=== PATIENT | female | born 1950 | race Caucasian/White ===

== ENCOUNTER 2016-09-04 11:33 | Inpatient (IN) ==
[2016-09-04] MEDS ORDERED: MORPHINE 2 MG/1 ML SYRINGE IV STA (11:43)
[2016-09-04] MEDS ORDERED: ONDANSETRON 4 MG/2 ML VIAL IV STA (11:43)
--- NOTE | 2016-09-04 11:45 | Emergency Department Note ---
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 States she was walking to the laundry mat and tripped landing on her left hand. Denies hitting her head or LOC. Pain, swelling, deformity noted to the left hand. Also, complaining of abrasions to left knee. Patient ambulatory after accident. Past medical history significant for COPD and congestive heart failure. Onset (ago): hour(s) (1) Severity: moderate Quality: other (throbbing ) Allergies/Adverse Reactions: Allergies Allergy/AdvReac Type Severity Reaction Status Date / Time aspirin AdvReac Severe Nausea Verified 08/01/16 16:13 Home Medications: Home Medications Medication Instructions Recorded Confirmed Type Gabapentin Cap/Tab [Neurontin 600 mg PO BEDTIME 10/20/14 06/24/16 History Cap/Tab] Ipratropium/Albuterol Inhaler 1 puff INH QOTHER DAY PRN 10/20/14 06/24/16 History [Combivent Respimat Inhaler] Albuterol Sulfate [Ventolin HFA] 2 puff INH Q4H PRN 12/21/15 06/24/16 History Apixaban [Eliquis] 5 mg PO BID 12/21/15 06/24/16 History Isosorbide Mononitrate [Imdur] 15 mg PO DAILY 12/21/15 06/24/16 History Metoprolol Tartrate 25 mg PO DAILY 12/21/15 06/24/16 History Spironolactone 100 mg PO DAILY 12/21/15 06/24/16 History Torsemide Tab [Demadex Tab] 40 mg PO DAILY 12/21/15 06/24/16 History dilTIAZem HCl [Diltiazem ER] 360 mg PO DAILY 12/21/15 06/24/16 History Cyclobenzaprine HCl 5 mg PO BID PRN 06/24/16 06/24/16 History Dicyclomine HCl 10 mg PO TID PRN 06/24/16 06/24/16 History Escitalopram [Lexapro] 10 mg PO DAILY 06/24/16 06/24/16 History Furosemide Tab [Lasix Tab] 20 mg PO BID DIURETIC #60 tablet 06/24/16 Rx Lactobacillus Acidophilus 1 each PO BID 06/24/16 06/24/16 History [Acidophilus] Mirabegron [Myrbetriq] 25 mg PO DAILY 06/24/16 06/24/16 History Pramipexole Di-HCl [Pramipexole ER] 0.75 mg PO QPM 06/24/16 06/24/16 History Review of System - Review of System 12 point system: reviewed and no additional remarkable complaints except as stated - Review of System Musculoskeletal: Present: other (left wrist pain/deformity ) Neurological: Present: other (superficial abrasions to left knee and left elbow) Medical,Surgical,& Family Hx - Medical History Cardio: History of: CHF No history of: Hypertension Neurology: History of: Peripheral Neuropathy Genitourinary: History of: Kidney Stones Hematology: No history of: Blood Transfusion Reaction Other: No history of: Anesthesia Reactions - Surgical History Cardiac Surgeries: Patient Denies: Cardiac Catheterization Abdominal Surgeries: Surgical HX of: Cholecystectomy, EGD, Hernia Repair Reproductive Surgeries: Surgical HX of;: Hysterectomy Orthopedic Surgeries: Surgical HX of;: Total Knee Replacement (bilateral) - Social History Smoking Status: Never smoker Exam Vital Signs: Vital Signs Temperature 98.2 F 09/04/16 11:34 Pulse Rate 95 H 09/04/16 11:34 Respiratory Rate 20 09/04/16 11:34 Blood Pressure 120/60 09/04/16 11:34 O2 Sat by Pulse Oximetry 95 09/04/16 11:34 - General General appearance: alert, in no apparent distress - ENT ENT exam: Present: normal exam, normal oropharynx, mucous membranes moist - Chest Chest inspection: Present: normal inspection - Respiratory Respiratory exam: Present: normal lung sounds bilaterally - Cardiovascular Cardiovascular exam: Present: regular rate, normal rhythm, normal heart sounds - Abdominal Exam Abdominal exam: Present: soft, normal bowel sounds. Absent: tenderness - Extremities Exam Extremities exam: Present: other (Diffuse TTP to distal radius/ulna; +deformity ; radial pulse strong and equal bilaterally; capillary refill less than 3 seconds ) - Neurological Exam Neurological exam: Present: alert, oriented X3 - Psychiatric Psychiatric exam: Present: normal affect, normal mood - Skin Skin exam: Present: warm, dry, other (superficial abrasions to left knee; no active bleeding ) Course Course Narrative: Family is requesting patient be admitted to the hospital. Will call the Hospitalist. - Consultations Consultation #1: Dr. Croft Time: 14:00 (Dr. Croft will operate in the morning ) Consultation #2: Hospitalist Time: 14:45 (Will admit to the Hospitalist ) Results - Labs CBC & BMP: 09/04/16 13:47 09/04/16 13:47 Lab Results: I have reviewed the patients labs - Diagnostic Findings Procedure: Chest x-ray: image reviewed by me, report reviewed by me (pulmonary vascular congestion; mild CHF- probably chronic ), X-ray: image reviewed by me , report reviewed by me (acute displaced fracture of the radius/ulna) Disposition Clinical Impression: Distal radius fracture, Ulna distal fracture Case discussed with: patient Disposition: Still a Patient Condition: Stable
[2016-09-04] MEDS ORDERED: MORPHINE 2 MG/1 ML SYRINGE ONE (11:57)
[2016-09-04] MEDS ORDERED: ONDANSETRON 4 MG/2 ML VIAL ONE (11:57)
--- NOTE | 2016-09-04 12:37 | XRay Report ---
Left wrist, 3 views. Left hand, 3 views. Indication: Fall, injury, and pain. There are acute comminuted displaced and dorsally angulated fractures of the distal radius and ulna. The radial fracture extends to the articular surface. There is also a small ulnar styloid fracture. Degenerative changes are noted at the first and second carpal-metacarpal joints, and likely also the distal interphalangeal joints. Impression: Acute displaced fractures of the distal radius and ulna. PROCEDURE INTERPRETED AT [facility] DEPARTMENT OF RADIOLOGY Final Report Signed by: Dr. Dolores Mercado
--- NOTE | 2016-09-04 13:49 | XRay Report ---
XR chest 1V portable Indication: Preop respiratory evaluation. Chest one view: Comparison 08/01/2016. Heart size remains minimally enlarged with continued pulmonary vascular congestion centrally and hilar prominence. Increased reticular markings of the lungs noted throughout, generally stable from the prior exam. Some degree of diffuse peribronchial thickening noted as well. No focal infiltrate. Impression: Cardiomegaly and mild pulmonary vascular congestion consistent with mild CHF, likely chronic. Superimposed mild airways disease cannot be excluded. No focal pneumonia. PROCEDURE INTERPRETED AT [facility] DEPARTMENT OF RADIOLOGY Final Report Signed by: Edgardo Salazar M.D.
[2016-09-04 14:05] LABS: Basophils # 0.1 10*3/uL (0.0-0.2); Basophils % 0.5 % (0.0-0.8); Eosinophils # 0.2 10*3/uL (0.0-0.87); Eosinophils % 1.2 % (0.00-10.9); Hematocrit 36.5 VOL% (35.7-47.0); Immature Granulocytes % 0.4 %; Immature Granulocytes Absolute 0.07 #; Lymphocytes % 25.1 % (21.3-54.2); Mean Corpuscular HGB Conc 30.1 GM/DL (32-36); Mean Corpuscular Hemoglobin 23 PG (27-34); Mean Corpuscular Volume 77.2 FL (87-102); Mean Platelet Volume 11.3 FL (9.6-12.0); Monocytes # 0.9 10*3/uL (0.11-0.8); Monocytes % 5.7 % (1.7-12.7); Neutrophils # 10.8 10*3/uL (1.4-7.4); Neutrophils % 67.1 % (38.7-73.9); Platelet Count 290 T/CUMM (130-400); Red Blood Count 4.73 MC/CUMM (3.8-5.5); Red Cell Distribution Width 16.3 % (9.3-17.3); White Blood Count 16.1 T/CUMM (4-12)
[2016-09-04 14:17] LABS: INR 1.1; PT Patient Result 12.1 SECS; Partial Thromboplastin Time 29.4 SECS (0-40)
[2016-09-04 14:22] LABS: Albumin 3.8 G/DL (3.4-5.0); Bilirubin,Total 0.5 MG/DL (0.2-1.0); Calcium 9.1 MG/DL (8.5-10.1); Osmolality,Calculated 279.4 MOS/KG (273-304); Potassium 4.2 MMOL/L (3.5-5.1); Total Protein 7.7 G/DL (6.4-8.3)
[2016-09-04] MEDS ORDERED: DIPH/TET/ACEL PERT BOOSTER VACCINE 0.5 ML VIAL IM ONE ×2 (14:36→19:30)
--- NOTE | 2016-09-04 15:16 | EKG Report ---
Stationary ECG Study [facility] Test Date: 09/04/2016 1:36:06 PM Pat Name: JADA BECKMAN Department: Room: Gender: F Clinical Outcomes Manager: : 1950 Requested by: Rosa Sorto Order Number: [id number] Reading MD: DELIO VALENCIA Intervals Ora Rate: 72 P: 999 AR: 0 QRS: -69 QRSD: 93 T: -14 QT: 399 QTc: 424 Interpretive Statements ATRIAL FIBRILLATION LOW QRS VOLTAGE IN PRECORDIAL LEADS POSSIBLE ANTERIOR MYOCARDIAL INFARCTION, PROBABLY OLD Electronically Signed On 09-05-16 18:58:20 CDT by DELIO VALENCIA [email or web address]
[2016-09-04] MEDS ORDERED: DOCUSATE SODIUM 100 MG CAPSULE PO PRN (15:29)
[2016-09-04] MEDS ORDERED: ZALEPLON 5 MG CAPSULE PO PRN (15:29)
[2016-09-04] MEDS ORDERED: ONDANSETRON 4 MG/2 ML VIAL IV PRN (15:29)
[2016-09-04] MEDS ORDERED: BISACODYL 5 MG TABLET PO PRN (15:29)
[2016-09-04] MEDS ORDERED: ALBUTEROL/IPRATROPIUM 3 ML NEB RESP TX PRN (15:33)
[2016-09-04] MEDS ORDERED: MORPHINE 2 MG/1 ML SYRINGE IV PRN (15:34)
--- NOTE | 2016-09-04 15:41 | Hospitalist History & Physical ---
Assessment and Plan (1) Distal radius fracture Status: Acute Assessment and plan: Non-syncopal fall with left arm fracture Current Visit: Yes Qualifiers: Encounter type: initial encounter (2) Lymphoma Status: Chronic Assessment and plan: Treated several years ago stable CT scan June 2016. Cell type is indeterminate at this time. Current Visit: No (3) Morbid obesity Status: Chronic Assessment and plan: Patient has chronic shortness of breath and poor exercise tolerance. She seems to be describing a positive sleep study in the past but no active treatment for obstructive sleep apnea. She has had chronic atrial fibrillation with echocardiogram 18 months ago showing preserved LV systolic performance and normal right ventricular systolic pressure. Current Visit: No History of Present Illness History of present illness: Ms. Blair is a 66 year old female 3 year history of atrial fibrillation on rate control using diltiazem only on her previous medication list. She had been unsuccessfully tried on Coumadin and apparently switched to Eliquis. She states however that she has taken the Eliquis only once per day with the last dose yesterday morning. Earlier today she sustained a non-syncopal fall with fracture of her left distal radius and ulna. Patient has a history of chronic shortness of breath with several evaluations. Apparently nearly a decade ago she was evaluated for possible sleep apnea it sounds as though she was positive for this but did not undergo any treatment. She describes herself as being a lifelong non-smoker who has very poor exercise tolerance. An echocardiogram done in 2014 here demonstrated excellent LV function and no increase in pulmonary artery pressures. She does have a history of lymphoma treated approximately 3-[address] scan done in June of this year shows residual adenopathy but no evidence of intrinsic lung disease. Apparently last week the patient had a follow-up pulmonary function test and was told that she had "COPD". She has no active pulmonary complaints at this time. She is seeing no bleeding. She is being admitted to the medical service with anticipation of surgical repair of her left wrist September 05. Home Medications Medication Instructions Recorded Confirmed Type Gabapentin Cap/Tab [Neurontin 600 mg PO BEDTIME 10/20/14 06/24/16 History Cap/Tab] Ipratropium/Albuterol Inhaler 1 puff INH QOTHER DAY PRN 10/20/14 06/24/16 History [Combivent Respimat Inhaler] Albuterol Sulfate [Ventolin HFA] 2 puff INH Q4H PRN 12/21/15 06/24/16 History Apixaban [Eliquis] 5 mg PO BID 12/21/15 06/24/16 History Isosorbide Mononitrate [Imdur] 15 mg PO DAILY 12/21/15 06/24/16 History Metoprolol Tartrate 25 mg PO DAILY 12/21/15 06/24/16 History Spironolactone 100 mg PO DAILY 12/21/15 06/24/16 History Torsemide Tab [Demadex Tab] 40 mg PO DAILY 12/21/15 06/24/16 History dilTIAZem HCl [Diltiazem ER] 360 mg PO DAILY 12/21/15 06/24/16 History Cyclobenzaprine HCl 5 mg PO BID PRN 06/24/16 06/24/16 History Dicyclomine HCl 10 mg PO TID PRN 06/24/16 06/24/16 History Escitalopram [Lexapro] 10 mg PO DAILY 06/24/16 06/24/16 History Furosemide Tab [Lasix Tab] 20 mg PO BID DIURETIC #60 tablet 06/24/16 Rx Lactobacillus Acidophilus 1 each PO BID 06/24/16 06/24/16 History [Acidophilus] Mirabegron [Myrbetriq] 25 mg PO DAILY 06/24/16 06/24/16 History Pramipexole Di-HCl [Pramipexole ER] 0.75 mg PO QPM 06/24/16 06/24/16 History Allergies Allergy/AdvReac Type Severity Reaction Status Date / Time aspirin AdvReac Severe Nausea Verified 08/01/16 16:13 Medical,Surgical,& Family Hx - Medical History Neurology: History of: Peripheral Neuropathy Genitourinary: History of: Kidney Stones Gastrointestinal: History of: GERD (Recurrent hiatal hernia on most recent CT scan of chest) Hematology: History of: Blood Disorders (Treated lymphoma, stable CT scan chest 2014) No history of: Blood Transfusion Reaction Other: No history of: Anesthesia Reactions - Surgical History Cardiac Surgeries: Sugical HX of: Cardiac Catheterization (Possible coronary study 8 years ago) Abdominal Surgeries: Surgical HX of: Cholecystectomy, EGD Reproductive Surgeries: Surgical HX of;: Section Orthopedic Surgeries: Surgical HX of;: Total Knee Replacement (bilateral) Additional Surgical History: Remote Birgit fundoplication - Social History Smoking Status: Never smoker Frequency of Alcohol Use: Rarely - Constitutional Constitutional: Absent: chills, fever(s) - Cardiovascular Cardiovascular: Present: dyspnea on exertion. Absent: chest pain at rest, chest pain with activity, orthopnea, palpitations - Respiratory Respiratory: Present: wheezing (She reports intermittent wheezing), other ( Likely untreated obstructive sleep apnea) - Gastrointestinal Gastrointestinal: Absent: abdominal pain, change in bowel habits, dysphagia, hematochezia, melena - Neurological Neurological: Absent: convulsions, syncope - Psychiatric Psychiatric: Present: depression Exam - Constitutional Vitals: Period Temp Pulse Resp BP Sys/Leyva Pulse Ox Last 24 Hr 98.2 F 95 20 120/60 95 General appearance: morbidly obese - Neck Neck exam: Absent: lymphadenopathy, thyromegaly - Respiratory Respiratory exam: Present: clear to auscultation bilaterally. Absent: rales, rhonchi, wheezes - Cardiovascular Cardiovascular exam: Present: irregular rhythm - GI/Abdominal GI/Abdominal exam: Present: normal bowel sounds. Absent: ascites, distended, tenderness - Extremities Exam Extremities exam: Absent: edema - Neurological Exam Neurological exam: Present: alert, oriented X3 Results - Labs CBC & BMP: 09/04/16 13:47 09/04/16 13:47 Labs: Alkaline phosphatase 179 Normal coagulation panel - Diagnostic Findings Procedure: Chest x-ray: image reviewed by me (Coarse lower lobe markings at the base bilaterally) Quality Measures - VTE Contraindication to Pharmacological VTE Prophylaxis: Already on Theraputic Agent , No Prophylaxis Needed
[2016-09-04] MEDS: PANTOPRAZOLE 40 MG TABLET PO SCH (17:16)
[2016-09-04] MEDS: DILTIAZEM 60 MG TABLET PO SCH ×2 (17:16→21:42)
--- NOTE | 2016-09-04 17:41 | Orthopedic Consult Note ---
History of Present Illness Chief complaint: Colles' fracture left wrist History of present illness: Ms. Blair is a 66 year old female admitted to the medical service with history of atrial fibrillation on Eliquis. She reported lives alone at home fell earlier today fracturing her left wrist as asked about regarding that injury she has no other injuries or complaints is mobilizing up to a chair with a splint in place on her left arm Examination confirms a decreased motion at the left wrist she had with is guarded with active motion about the digit sensibility scribe is intact The refill is brisk there is no pain with palpation about the elbow or humerus Radiographs confirm a displaced Colles' fracture left wrist Impression Colles' fracture left wrist Plan I discussed with her and family member present the diagnosis treatment examination including the benefits of closed reduction and pinning will plan on doing that in the morning pending medical clearance. Is likely from my standpoint that she could be discharged later tomorrow at her request up already put in a consult for social science teacher with respect to some home health needs that she may have Home Medications Medication Instructions Recorded Confirmed Type Gabapentin Cap/Tab [Neurontin 600 mg PO BEDTIME 10/20/14 06/24/16 History Cap/Tab] Ipratropium/Albuterol Inhaler 1 puff INH QOTHER DAY PRN 10/20/14 06/24/16 History [Combivent Respimat Inhaler] Albuterol Sulfate [Ventolin HFA] 2 puff INH Q4H PRN 12/21/15 06/24/16 History Apixaban [Eliquis] 5 mg PO BID 12/21/15 06/24/16 History Isosorbide Mononitrate [Imdur] 15 mg PO DAILY 12/21/15 06/24/16 History Metoprolol Tartrate 25 mg PO DAILY 12/21/15 06/24/16 History Spironolactone 100 mg PO DAILY 12/21/15 06/24/16 History Torsemide Tab [Demadex Tab] 40 mg PO DAILY 12/21/15 06/24/16 History dilTIAZem HCl [Diltiazem ER] 360 mg PO DAILY 12/21/15 06/24/16 History Cyclobenzaprine HCl 5 mg PO BID PRN 06/24/16 06/24/16 History Dicyclomine HCl 10 mg PO TID PRN 06/24/16 06/24/16 History Escitalopram [Lexapro] 10 mg PO DAILY 06/24/16 06/24/16 History Furosemide Tab [Lasix Tab] 20 mg PO BID DIURETIC #60 tablet 06/24/16 Rx Lactobacillus Acidophilus 1 each PO BID 06/24/16 06/24/16 History [Acidophilus] Mirabegron [Myrbetriq] 25 mg PO DAILY 06/24/16 06/24/16 History Pramipexole Di-HCl [Pramipexole ER] 0.75 mg PO QPM 06/24/16 06/24/16 History Allergies Allergy/AdvReac Type Severity Reaction Status Date / Time aspirin AdvReac Severe Nausea Verified 08/01/16 16:13 Medical,Surgical,& Family Hx - Medical History Cardio: History of: CHF No history of: Hypertension Neurology: History of: Peripheral Neuropathy Respiratory: History of: Pulmonary Embolism Genitourinary: History of: Kidney Stones Gastrointestinal: History of: GERD (Recurrent hiatal hernia on most recent CT scan of chest) Hematology: History of: Blood Disorders (Treated lymphoma, stable CT scan chest 2014) No history of: Blood Transfusion Reaction Other: History of: Miscellaneous Medical Problems (lymphoma) No history of: Anesthesia Reactions - Surgical History Cardiac Surgeries: Sugical HX of: Cardiac Catheterization (Possible coronary study 8 years ago) Abdominal Surgeries: Surgical HX of: Cholecystectomy, EGD, Hernia Repair Reproductive Surgeries: Surgical HX of;: Section, Hysterectomy Orthopedic Surgeries: Surgical HX of;: Total Knee Replacement (bilateral) - Family History Family History: Reports;: Family Cancer (mother), Family Diabetes (grandmother) - Social History Smoking Status: Never smoker Frequency of Alcohol Use: None Type of Drug Use: None Exam - Constitutional Vitals: Period Temp Pulse Resp BP Sys/Leyva Pulse Ox Last 24 Hr 98.1 F 76-82 20-20 137-186/62-82 92-96 Results - Labs CBC & BMP: 09/04/16 13:47 09/04/16 13:47
[2016-09-04] MEDS ORDERED: GABAPENTIN 600 MG TABLET PO SCH (21:00)
[2016-09-05 05:39] LABS: Basophils # 0.1 10*3/uL (0.0-0.2); Basophils % 0.4 % (0.0-0.8); Eosinophils # 0.5 10*3/uL (0.0-0.87); Eosinophils % 3.1 % (0.00-10.9); Hematocrit 33.7 VOL% (35.7-47.0); Hemoglobin 9.8 GM/DL (12.0-16.0); Immature Granulocytes % 0.4 %; Immature Granulocytes Absolute 0.07 #; Lymphocytes # 4.4 10*3/uL (1.4-4.0); Lymphocytes % 27.4 % (21.3-54.2); Mean Corpuscular HGB Conc 29.1 GM/DL (32-36); Mean Corpuscular Hemoglobin 23 PG (27-34); Mean Corpuscular Volume 80.2 FL (87-102); Mean Platelet Volume 11.9 FL (9.6-12.0); Monocytes # 1.2 10*3/uL (0.11-0.8); Monocytes % 7.6 % (1.7-12.7); Neutrophils # 9.7 10*3/uL (1.4-7.4); Neutrophils % 61.1 % (38.7-73.9); Platelet Count 227 T/CUMM (130-400); Red Cell Distribution Width 16.2 % (9.3-17.3)
[2016-09-05] MEDS ORDERED: ONDANSETRON 4 MG/2 ML VIAL ONE (07:30)
[2016-09-05] MEDS ORDERED: LACTATED RINGERS 1,000 ML IV SCH (07:30)
[2016-09-05] MEDS ORDERED: METOCLOPRAMIDE 10 MG/2 ML VIAL ONE (07:30)
[2016-09-05] MEDS ORDERED: KETOROLAC 30 MG/1 ML VIAL ONE (07:30)
[2016-09-05] MEDS ORDERED: PROPOFOL 200 MG/20 ML VIAL IV ONE (07:30)
[2016-09-05] MEDS ORDERED: PHENYLEPHRINE 1 MG/10 ML SYRINGE IV ONE (07:30)
[2016-09-05] MEDS ORDERED: LIDOCAINE 2% 5 ML VIAL ONE (07:30)
--- NOTE | 2016-09-05 08:38 | Anesthesia Post-Op ---
Anesthesia Post OP - Post Ansesthetic Evaluation Patient seen in post op: Yes Resp: within normal limits CV: within normal limits Mental: within normal limits Temp: within normal limits [id number]: within normal limits Nausea and Vomiting: within normal limits Pain: within normal limits
[2016-09-05] MEDS ORDERED: SEVOFLURANE 1 UNIT/15 MINUTE INH ONE (08:42)
[2016-09-05] MEDS ORDERED: fentaNYL 100 MCG/2 ML VIAL ONE (08:42)
[2016-09-05] MEDS ORDERED: MIDAZOLAM 2 MG/2 ML VIAL ONE (08:42)
[2016-09-05] MEDS ORDERED: ESCITALOPRAM 10 MG TABLET PO SCH (09:00)
[2016-09-05] MEDS: DILTIAZEM 60 MG TABLET PO SCH ×2 (09:00→13:53)
[2016-09-05] MEDS ORDERED: HYDROmorphone 2 MG/1 ML VIAL IV PRN (09:01)
[2016-09-05] MEDS ORDERED: ONDANSETRON 4 MG/2 ML VIAL IV PRN (09:01)
--- NOTE | 2016-09-05 10:02 | XRay Report ---
XR wrist 3V LT Indication: Fracture fixation Comparison: 04 Sep 2016 Findings: Internal fixation of distal radius fractures performed using fluoroscopic imaging. Alignment appears within normal limits on the images submitted. Fluoroscopy time 7.1 seconds. Impression: Fracture fixation as described above. PROCEDURE INTERPRETED AT [facility] DEPARTMENT OF RADIOLOGY Final Report Signed by: Dr. Luis Wilder
[2016-09-05] MEDS: PANTOPRAZOLE 40 MG TABLET PO SCH (13:53)
[2016-09-05 13:54] VITALS: BP 122/75
--- NOTE | 2016-09-05 15:11 | Discharge Summary ---
Specialty Discharge - Follow Up or Referrals Follow up with: Rj Croft Jr., MD [Physician] - 09/23/16 1:15 pm Discharge Plan - Discharge Data Disposition: Home Health Service Condition at Discharge: Stable Discharge Diet: heart healthy Activity: no lifting, other (Assistance with activities of daily living) Hygiene: other (Assistance with activities of daily living) Weight Bearing at Discharge: other (Assistance with transfers and ambulation) Contact your physician if you experience:: fever over 101, Shortness of breath - Discharge Medications New HYDROcodone/ACETAMIN 5-325 [[place] 5-325] 1 tablet PO Q4H PRN #60 tablet PRN Reason: Pain Moderate (4-7) Continue Gabapentin Cap/Tab [Neurontin Cap/Tab] 600 mg PO BEDTIME Ipratropium/Albuterol Inhaler [Combivent Respimat Inhaler] 1 puff INH QOTHER DAY PRN PRN Reason: Shortness Of Breath dilTIAZem HCl [Diltiazem 24Hr ER] 360 mg PO DAILY Isosorbide Mononitrate [Imdur] 15 mg PO DAILY Apixaban [Eliquis] 5 mg PO BID Cyclobenzaprine HCl 5 - 10 mg PO BID PRN PRN Reason: Muscle Spasm Mirabegron [Myrbetriq] 50 mg PO DAILY Pramipexole Di-HCl [Pramipexole ER] 0.75 mg PO QPM Pantoprazole Sodium [Protonix] 40 mg PO DAILY Cholestyramine (with Sugar) [Cholestyramine Powder] 378 gm PO DAILY Tiotropium [place] [Spiriva Respimat] 4 gm IH DAILY Dicyclomine HCl 10 mg PO TID PRN PRN Reason: Abdominal Pain Escitalopram [Lexapro] 10 mg PO DAILY Furosemide Tab [Lasix Tab] 20 mg PO BID DIURETIC #60 tablet Promethazine HCl 25 mg PO Q4-6H PRN PRN Reason: Nausea Montelukast Tab [Singulair Tab] 10 mg PO DAILY Discontinued cephALEXin [Cephalexin] 500 mg PO Q12H Nitrofurantoin Macrocrystals [Macrodantin] 50 mg PO BEDTIME - Follow Up or Referral Follow Up: Rj Croft Jr., MD [Physician] - 09/23/16 1:15 pm - Forms/Instructions Exam - Constitutional Vitals: Period Temp Pulse Resp BP Sys/Leyva Pulse Ox Last 24 Hr 96.5 F-98.4 F 64-98 12-20 107-186/58-92 85-100 Discharge Results Labs on day of discharge: Labs from last 24 hours 09/05/16 04:09 WBC 16.0 H RBC 4.20 Hgb 9.8 L Hct 33.7 L MCV 80.2 L MCH 23 L MCHC 29.1 L RDW 16.2 Plt Count 227 D MPV 11.9 Neut % (Auto) 61.1 Lymph % (Auto) 27.4 Desha % (Auto) 7.6 Eos % (Auto) 3.1 Baso % (Auto) 0.4 Neut # (Auto) 9.7 H Lymph # (Auto) 4.4 H Desha # (Auto) 1.2 H Eos # (Auto) 0.5 Baso # (Auto) 0.1 Immature Gran % 0.4 Nucleated RBC % 0.0 Immature Gran # 0.07 Nucleated RBCs # 0.00 DS: Provider Date of admission: 09/04/16 14:53 Primary care physician: Teresa Schafer NP Attending physician on admission: Matthew Soto MD Consults: 09/04/16 15:33 Consult to Physician [CONS] Routine Comment: Wrist fracture Consulting Provider: Frank Fay Consulting Provider Notified: Yes When should Consulting Provider be notified: Now 09/04/16 16:47 Consult to Pharmacy [CONS] Routine Reason for Pharmacy Consult: Adjust Meds Renal Funct 09/04/16 17:38 Consult to Case Mgmt/Social Srvs [CONS] Routine Reason for Case Mgmt/Social Srvs: Home Health Discharging clinician: Dilan Mejía MD
--- NOTE | 2016-09-05 16:50 | Operative Note ---
DATE OF SURGERY: 09/05/2016 PREOPERATIVE DIAGNOSIS: DISPLACED COLLES FRACTURE, LEFT WRIST. POSTOPERATIVE DIAGNOSIS: DISPLACED COLLES FRACTURE, LEFT WRIST. OPERATIVE PROCEDURE: Close reduction with percutaneous pinning, left distal radius fracture. SURGEON: Rj Croft Jr., MD ANESTHESIA: General. INDICATIONS: A 66-year-old white female injured yesterday when she fell on outstretched left arm. She sustained an isolated fracture to the left wrist for which I have recommended close reduction an d pinning. She appeared to understand and agree. OPERATIVE PROCEDURE: The patient was taking to the operating room under light general anesthetic. T he left upper extremity prepped and draped in a usual sterile manner. Fluoroscopy was used to confi rm reduction. After general manipulation a reduction was confirmed. A two 0.062 K-Wires were used to secure the reduction placed in the radial styloid across the fracture that have been cut above th e skin for later removal. They dressed sterilely and a posterior and anterior short arm splint was applied with general flexion to the wrist. She was then awaken and taken to Recover Room in a stabl e condition.
== END 2016-09-05 16:48 | disposition home health service (06) | DRG 512 ==
LOC: EDBD → EDUNIT# → N.ED 11:33 → N.EDINP 14:53 → SUATTDRO 14:53 → N.EDINP 16:31 → N.TELEN 16:37 → N.3E 09-05 11:53
PROVIDERS: ADMIT Internal Medicine Cardiovascular Disease; ATTEND Internal Medicine Infectious Disease

== ENCOUNTER 2016-09-10 10:50 | Inpatient (IN) ==
[2016-09-10] MEDS ORDERED: FUROSEMIDE 100 MG/10 ML VIAL IV STA (11:17)
[2016-09-10] MEDS ORDERED: DILTIAZEM 100 MG VIAL.ADD IV STA (11:18)
[2016-09-10] MEDS ORDERED: FUROSEMIDE 40 MG/4 ML VIAL ONE ×2 (11:22→11:23)
[2016-09-10] MEDS ORDERED: DILTIAZEM 50 MG/10 ML VIAL IV ONE (11:23)
--- NOTE | 2016-09-10 11:27 | Emergency Department Note ---
Ross Peoples Gwan, am scribing for, and in the presence of, Rj Angel MD 11:19 . Jeanne Peoples James D, MD, personally performed the services described in this documentation, ascribed by Fani Hawkins in my presence, and it is both accurate and complete . Arrival - Arrival Chief Complaint: Shortness of Breath Stated Complaint: sob Limitations: No Limitations Source: Patient, Old Records Reviewed, RN Notes Reviewed - History of Present Illness HPI Narrative: Patient is a 66 y/o female who presents to the ED with a c/o SOB with an onset 3 days ago. Patient confirmed that she is in afib and that she is taking medication to help control it. Patient has been hospitalized due to broken arm and had surgery performed Dr. Nya Garcia. Family stated that pt has had evidence of generalized edema prompting their visit to the ED. Patient confirmed that she is followed by Dr. Greer and [facility] Scha[facility]. She denies having any chest pain. Pt has a PMHx of CHF, peripheral neuropathy, PE, kidney stones and lymphoma. Consistency: constant Severity: moderate Allergies/Adverse Reactions: Allergies Allergy/AdvReac Type Severity Reaction Status Date / Time aspirin AdvReac Severe Nausea Verified 08/01/16 16:13 Home Medications: Home Medications Medication Instructions Recorded Confirmed Type Gabapentin Cap/Tab [Neurontin 600 mg PO BEDTIME 10/20/14 09/10/16 History Cap/Tab] Ipratropium/Albuterol Inhaler 1 puff INH QOTHER DAY PRN 10/20/14 09/10/16 History [Combivent Respimat Inhaler] Apixaban [Eliquis] 5 mg PO BID 12/21/15 09/10/16 History Isosorbide Mononitrate [Imdur] 15 mg PO QPM 12/21/15 09/10/16 History dilTIAZem HCl [Diltiazem 24Hr ER] 360 mg PO QPM 12/21/15 09/10/16 History Escitalopram [Lexapro] 10 mg PO QPM 06/24/16 09/10/16 History Furosemide Tab [Lasix Tab] 20 mg PO BID DIURETIC #60 tablet 06/24/16 09/10/16 Rx Mirabegron [Myrbetriq] 50 mg PO QPM 06/24/16 09/10/16 History Pramipexole Di-HCl [Pramipexole ER] 0.75 mg PO QPM 06/24/16 09/10/16 History Pantoprazole Sodium [Protonix] 40 mg PO QPM 09/05/16 09/10/16 History Promethazine HCl 25 mg PO Q4-6H PRN 09/05/16 09/10/16 History Tiotropium [place] [Spiriva 4 gm IH BID 09/05/16 09/10/16 History Respimat] Albuterol Sulfate [Ventolin HFA] 1 puff INH Q4H PRN 09/10/16 09/10/16 History Metoprolol Succinate Xl [Toprol Xl] 25 mg PO QPM 09/10/16 09/10/16 History Review of System - Review of System 12 point system: reviewed and no additional remarkable complaints except as stated - Review of System Constitutional: Absent: chills, fever Eyes: Absent: discharge Head/Ears/Nose/Throat: Absent: earache Respiratory: Present: as per HPI, other (shortness of breathe) Cardiovascular: Absent: chest pain, palpitations Gastrointestinal: Absent: abdominal pain, nausea, diarrhea Skin: Absent: rash, lesions Medical,Surgical,& Family Hx - Medical History Cardio: History of: Cardiac Dysrhythmia, CHF No history of: Hypertension Neurology: History of: Peripheral Neuropathy Respiratory: History of: Pulmonary Embolism Genitourinary: History of: Kidney Stones Gastrointestinal: History of: GERD (Recurrent hiatal hernia on most recent CT scan of chest) Hematology: No history of: Blood Transfusion Reaction Other: History of: Miscellaneous Medical Problems (lymphoma) No history of: Anesthesia Reactions - Surgical History Cardiac Surgeries: Sugical HX of: Cardiac Catheterization (Possible coronary study 8 years ago) Abdominal Surgeries: Surgical HX of: Cholecystectomy, EGD, Hernia Repair Reproductive Surgeries: Surgical HX of;: Section, Hysterectomy Orthopedic Surgeries: Surgical HX of;: Total Knee Replacement (bilateral) - Family History Family History: Reports;: Family Cancer (mother), Family Diabetes (grandmother) - Social History Smoking Status: Never smoker Exam Physical Examination: GENERAL: This is a well-nourished, well-developed white female in no apparent distress. VITAL SIGNS: HEENT: Head is normocephalic and atraumatic. Pupils are equally round and reactive to light. Extraocular movement are intact. Oropharynx is benign with moist mucous membranes. NECK: Neck is soft and supple without tenderness. There are no masses. There is no lymphadenopathy. LUNGS: Lungs are clear to auscultation bilaterally. Chest rises symmetrically. There is no chest wall tenderness. Patient has coarse breath sounds bilaterally and tachypnea. CV: Heart is irregular rate and irregular rhythm without murmurs, rubs, or gallops. ABDOMEN: Abdomen is soft, non-tender to palpation. There are no abnormal masses palpated. There is no organomegaly. Bowel sounds are present and active. SKIN: Skin is warm and dry. No rash. EXTREMITIES: Patient has full range of motion without tenderness. Patient has + 1 pitting edema to bilateral LE. NEUROLOGIC: Awake, alert, and oriented x4. Cranial nerves II through XII are grossly intact. There are no motorsensory deficits. PSYCHIATRIC: Normal affect. Normal mood. Vital Signs: Vital Signs Temperature 98.1 F 09/10/16 10:55 Pulse Rate 138 H 09/10/16 10:55 Respiratory Rate 32 H 09/10/16 10:55 Blood Pressure 133/94 09/10/16 10:55 O2 Sat by Pulse Oximetry 93 L 09/10/16 10:55 Course Course Narrative: Patient remained on BiPAP during her ED stay. The patient was given Cardizem bolus and infusion along with Lasix IV while in the emergency department. - Consultations Consultation #1: Discussed with hospitalist. Patient will be admitted to their service. Time: 12:16 Results - Labs Lab Results: I have reviewed the patients labs Labs: Laboratory Tests 09/10/16 11:24 Urine pH 5.0 Ur Specific [place] 1.017 Urine Nitrate Positive H Urine RBC 1 Urine WBC 3 - EKG EKG results: interpreted by ERMD - Impressions EKG: Atrial fib with RVR, rate 123, low voltage QRS, left anterior fascicular block. - Diagnostic Findings Procedure: Chest x-ray: image reviewed by me (Increased pulmonary markings bilaterally consistent with congestive heart failure) Disposition Clinical Impression: Atrial fibrillation with RVR, Pulmonary edema, Urinary tract infection Case discussed with: patient, patient's family Disposition: Still a Patient Condition: Guarded Time of Disposition: 12:16
[2016-09-10] MEDS ORDERED: DILTIAZEM INJ 100 MG in SODIUM CHLORIDE 0.9% 100 ML IV SCH (11:30)
[2016-09-10 11:38] LABS: Apearance,Urine Slightly Hazy (Clear); Bacteria,Urine Many /HPF (Few); Bilirubin,Urine Negative (Negative); Blood, Urine Negative (Negative); Glucose,Urine (UA) Negative (Negative); Hyaline Casts,Urine 1 /LPF (0-3); Ketones,Urine Negative (Negative); Mucus,Urine Moderate /LPF (Occasional); Nitrite,Urine Positive (Negative); Protein,Urine 30 MG/DL; RBC,Urine 1 /HPF (0-4); Squamous Epithelial Cell,Urine Occasional /HPF (0-10); Urine Color Yellow (Yellow); Urine Specific Gravity 1.017 (1.001-1.035); WBC,Urine 3 /HPF (0-6)
[2016-09-10] MEDS ORDERED: cefTRIAXone 1,000 MG in SODIUM CHLORIDE 0.9% 100 ML IV STA (11:55)
[2016-09-10 12:15] LABS: ABG Base Excess 4.1 MMOL/L (-2.5-2.5); ABG Oxygen Saturation 94.4 % (95-100); ABG PCO2 43.7 MM HG (35-48); ABG PH 7.429 (7.35-7.45); ABG PO2 73.7 MM HG (80-95); ABG TCO2 26.3 MMOL/L (23-27)
--- NOTE | 2016-09-10 12:43 | XRay Report ---
XR chest 1V portable Indication: Shortness of breath. Chest one view: When compared to 6 days ago, cardiomegaly is worse with increased pulmonary vascular congestion. No new infiltrates are identified. Obesity again demonstrated. Impression: CHF decompensation. PROCEDURE INTERPRETED AT [facility] DEPARTMENT OF RADIOLOGY Final Report Signed by: Edgardo Salazar M.D.
[2016-09-10 13:32] LABS: Basophils # 0.1 10*3/uL (0.0-0.2); Basophils % 0.3 % (0.0-0.8); Hematocrit 31.7 VOL% (35.7-47.0); Immature Granulocytes % 0.9 %; Immature Granulocytes Absolute 0.21 #; Lymphocytes # 2.6 10*3/uL (1.4-4.0); Lymphocytes % 10.4 % (21.3-54.2); Mean Corpuscular HGB Conc 31.5 GM/DL (32-36); Mean Corpuscular Hemoglobin 24 PG (27-34); Mean Corpuscular Volume 76.2 FL (87-102); Mean Platelet Volume 11.5 FL (9.6-12.0); Monocytes # 1.4 10*3/uL (0.11-0.8); Monocytes % 5.6 % (1.7-12.7); NRBC # 0.02 10*3/uL; Neutrophils # 20.4 10*3/uL (1.4-7.4); Neutrophils % 82.8 % (38.7-73.9); Platelet Count 241 T/CUMM (130-400); Red Blood Count 4.16 MC/CUMM (3.8-5.5); Red Cell Distribution Width 17.3 % (9.3-17.3); White Blood Count 24.6 T/CUMM (4-12)
[2016-09-10 13:47] LABS: INR 1.3; PT Patient Result 13.7 SECS; Partial Thromboplastin Time 33.4 SECS (0-40)
[2016-09-10 14:00] LABS: Lymphocytes 10 % (20-55); Ovalocytes Slight; Platelet Estimate Adequate; Polychromasia Slight; Segmented Neutrophils 88 % (50-85); Total Cells Counted 100
[2016-09-10 14:01] LABS: Anisocytosis 1+
--- NOTE | 2016-09-10 14:05 | Hospitalist History & Physical ---
<Shyam Power - Last Filed: 09/10/16 13:43> Assessment and Plan - Time spent with patient Time spent with patient: Greater than 30 minutes (1) Atrial fibrillation with RVR Status: Acute Assessment and plan: Received Cardizem in the ED. We will continue in the unit. Current Visit: Yes (2) Pulmonary edema Status: Acute Assessment and plan: Suspect CHF decompensation. IV Lasix. Echocardiogram. Consult cardiology. Current Visit: Yes (3) Urinary tract infection Status: Acute Assessment and plan: IV antibiotics Current Visit: Yes (4) History of COPD Status: Acute Current Visit: No (5) Ulna distal fracture Status: Acute Current Visit: No (6) Hypoxia Status: Chronic Current Visit: No History of Present Illness Chief complaint: Shortness of breath History of present illness: Ms. Blair is a 66 year old female with a past medical history significant for congestive heart failure, atrial fibrillation, PE, peripheral neuropathy, leukemia who presents to the ED with complaints of shortness of breath 3 days. The patient is accompanied by a friend who gives most of her history. Patient was recently admitted last week for a Colles' fracture to her left wrist. She had a closed reduction with percutaneous pinning of the left distal radius fracture performed by Dr. Croft last Thursday. The patient states that she has been progressively short of breath at night and when lying flat since Thursday night. Discontinued Thursday and Thursday until finally the patient decided to come to the ER. Friend states that she has evidence of generalized edema particularly in the lower extremities bilaterally. She also admits that the patient has not been compliant with her diuretics or home oxygen. She states that the patient has been confused lately. On admission, the patient is extremely short of breath and has been placed on BiPAP. Chest x-ray reveals increased cardiomegaly as compared to 1 week ago with increased pulmonary vascular congestion which is suggestive of CHF decompensation. Patient admits to shortness of breath, headache. She denies any chest pain, palpitation, near syncope, abdominal pain or change in bowel habits. On exam she is extremely edematous and her lung sounds are crackly. Preliminary lab work shows elevated white count of 24.6 pH 7.4 PCO2 43.7 PO2 73.7 HCO3 28. She is followed by Dr. Greer, director market research, and has been seen by Dr. Everett, pulmonology. Her PCP is LADY Egan. She will be admitted to the hospital medicine service for further evaluation and treatment in the CCU. Would appreciate consultation by cardiology. Patient is a full code. Case has been discussed with Dr. Funes. Home Medications Medication Instructions Recorded Confirmed Type Gabapentin Cap/Tab [Neurontin 600 mg PO BEDTIME 10/20/14 09/10/16 History Cap/Tab] Ipratropium/Albuterol Inhaler 1 puff INH QOTHER DAY PRN 10/20/14 09/10/16 History [Combivent Respimat Inhaler] Apixaban [Eliquis] 5 mg PO BID 12/21/15 09/10/16 History Isosorbide Mononitrate [Imdur] 15 mg PO QPM 12/21/15 09/10/16 History dilTIAZem HCl [Diltiazem 24Hr ER] 360 mg PO QPM 12/21/15 09/10/16 History Escitalopram [Lexapro] 10 mg PO QPM 06/24/16 09/10/16 History Furosemide Tab [Lasix Tab] 20 mg PO BID DIURETIC #60 tablet 06/24/16 09/10/16 Rx Mirabegron [Myrbetriq] 50 mg PO QPM 06/24/16 09/10/16 History Pramipexole Di-HCl [Pramipexole ER] 0.75 mg PO QPM 06/24/16 09/10/16 History Pantoprazole Sodium [Protonix] 40 mg PO QPM 09/05/16 09/10/16 History Promethazine HCl 25 mg PO Q4-6H PRN 09/05/16 09/10/16 History Tiotropium [place] [Spiriva 18 mcg IH BID 09/05/16 09/10/16 History Respimat] Albuterol Sulfate [Ventolin HFA] 1 puff INH Q4H PRN 09/10/16 09/10/16 History Metoprolol Succinate Xl [Toprol Xl] 25 mg PO QPM 09/10/16 09/10/16 History Allergies Allergy/AdvReac Type Severity Reaction Status Date / Time aspirin AdvReac Severe Nausea Verified 08/01/16 16:13 Medical,Surgical,& Family Hx - Medical History Cardio: History of: Cardiac Dysrhythmia, CHF No history of: Hypertension Neurology: History of: Peripheral Neuropathy Respiratory: History of: COPD, Pulmonary Embolism Genitourinary: History of: Kidney Stones Gastrointestinal: History of: GERD (Recurrent hiatal hernia on most recent CT scan of chest) Hematology: No history of: Blood Transfusion Reaction Other: History of: Miscellaneous Medical Problems (lymphoma) No history of: Anesthesia Reactions - Surgical History Cardiac Surgeries: Sugical HX of: Cardiac Catheterization (Possible coronary study 8 years ago) Abdominal Surgeries: Surgical HX of: Cholecystectomy, EGD, Hernia Repair Reproductive Surgeries: Surgical HX of;: Section, Hysterectomy Orthopedic Surgeries: Surgical HX of;: Total Knee Replacement (bilateral) - Family History Family History: Reports;: Family Cancer (mother), Family Diabetes (grandmother) - Social History Smoking Status: Never smoker Frequency of Alcohol Use: None Type of Drug Use: None Marital Status: Single Lives With:: Alone Functional capacity: independent ambulation - Constitutional Constitutional: Present: fatigue, frequent falls, headache(s), stops breathing during sleep - EENT Eyes: Absent: blurry vision, loss of vision Ears: Absent: decreased hearing, ear pain Nose, mouth and throat: Present: headache(s). Absent: vertigo - Cardiovascular Cardiovascular: Present: dyspnea, dyspnea on exertion, edema. Absent: chest pain at rest, chest pain with activity - Respiratory Respiratory: Present: dyspnea, dyspnea on exertion, snoring. Absent: cough, hemoptysis, pain on inspiration - Gastrointestinal Gastrointestinal: Absent: abdominal pain, constipation, diarrhea, nausea, vomiting - Genitourinary Genitourinary: Present: dysuria. Absent: flank pain - Musculoskeletal Musculoskeletal: Absent: back pain, muscle weakness - Neurological Neurological: Present: confusion, frequent falls - Psychiatric Psychiatric: Absent: anxiety, depression, panic attacks - Endocrine Endocrine: Present: fatigue. Absent: cold intolerance, heat intolerance - Hematologic/Lymphatic Hematologic/Lymphatic: Absent: easy bleeding, easy bruising Exam - Constitutional Vitals: Period Temp Pulse Resp BP Sys/Leyva Pulse Ox Last 24 Hr 118 33 Exam: General appearance: obese, no acute distress - Head Head exam: Present: normocephalic, atraumatic - Eye Eye exam: Present: EOMI. Absent: conjunctival injection, nystagmus Pupils: Present: AISSATOU, normal accommodation - ENT ENT exam: Present: normal exam, normal external ear exam - Neck Neck exam: Present: normal inspection. Absent: lymphadenopathy, tenderness, thyromegaly - Respiratory Respiratory exam: Present: rales, decreased breath sounds. Absent: wheezes - Cardiovascular Cardiovascular exam: Present: regular rate and rhythm. Absent: carotid bruit, gallop, rubs - GI/Abdominal GI/Abdominal exam: Present: normal bowel sounds. Absent: ascites, distended, mass - Extremities Exam Extremities exam: Present: normal inspection, normal capillary refill. Absent: edema - Back Exam Back exam: Absent: CVA tenderness (L), CVA tenderness (R) - Neurological Exam Neurological exam: Present: alert, oriented X3 - Psychiatric Psychiatric exam: Present: normal affect, normal mood - Skin Skin exam: Present: normal color, warm, dry Results - Labs CBC & BMP: 09/10/16 12:10 Lab Results: I have reviewed the past 24 hour labs - Diagnostic Findings Procedure: Chest x-ray: image reviewed by me, report reviewed by me (CHF decompensation) <Darby Funes - Last Filed: 09/10/16 15:12> Assessment and Plan (1) CHF (congestive heart failure), NYHA class III Status: Acute Assessment and plan: due to noncompliance with lasix and untreated LALY, OHS. Cont lasix IV, start coreg Current Visit: Yes (2) LALY (obstructive sleep apnea) Status: Acute Assessment and plan: Dr. Mishra to evaluate Current Visit: Yes (3) Atrial fibrillation with rapid ventricular response Status: Acute Assessment and plan: cont dilt po and coreg, cont dilt IV, cont eliquis, cardiology consulted Current Visit: No (4) Distal radius fracture Status: Acute Assessment and plan: already has cast, seeing Dr. Croft Current Visit: No Qualifiers: Encounter type: initial encounter (5) Hypertension Status: Acute Assessment and plan: cont coreg, dilt and IV dilt Current Visit: Yes (6) Morbid obesity Status: Acute Assessment and plan: counseled to lose weight Current Visit: Yes History of Present Illness History of present illness: Ms. Blair is a 66 year old female seen and examined. History and physical reviewed and edited. Limited conversation due to SOB - Neurological Neurological: Present: other (generalized weakness ). Absent: disequilibrium, focal weakness, syncope Exam - Constitutional Vitals: Period Temp Pulse Resp BP Sys/Leyva Pulse Ox Last 24 Hr 118 33 Results - Labs CBC & BMP: 09/10/16 12:10 09/10/16 12:10
[2016-09-10 14:10] LABS: Alanine Aminotransferase 18 U/L (13-56); Albumin 3.6 G/DL (3.4-5.0); Alkaline Phosphatase 172 U/L (45-117); Aspartate Amino Transferase 21 U/L (0-37); Blood Urea Nitrogen 13 MG/DL (7-18); Glucose 119 MG/DL (74-106); Osmolality,Calculated 275.7 MOS/KG (273-304); Potassium 4.5 MMOL/L (3.5-5.1); Sodium 138 MMOL/L (136-145); Troponin I Only < 0.015 NG/ML (0.00-0.045)
[2016-09-10] MEDS ORDERED: MAGNESIUM SULF RIDER 4 GM in PREMIX 1 EACH IV PRN (14:20)
[2016-09-10] MEDS ORDERED: ZALEPLON 5 MG CAPSULE PO PRN (14:20)
[2016-09-10] MEDS ORDERED: MAGNESIUM SULF RIDER 2 GM in PREMIX 1 EACH IV PRN (14:20)
[2016-09-10] MEDS ORDERED: ACETAMINOPHEN 325 MG TABLET PO PRN (14:20)
[2016-09-10] MEDS ORDERED: ONDANSETRON 4 MG/2 ML VIAL IV PRN (14:20)
[2016-09-10] MEDS ORDERED: ALBUTEROL 2.5 MG/3 ML NEB RESP TX PRN (14:20)
--- NOTE | 2016-09-10 14:52 | EKG Report ---
Stationary ECG Study [facility] Test Date: 09/10/2016 2:51:41 PM Pat Name: JADA BECKMAN Department: Room: 128 Gender: F Driver Service Technician: JOLENE : 1950 Requested by: Darby Dumas Order Number: [id number] Reading MD: LEN MERCEDES Intervals Rives Rate: 97 P: 999 VA: 0 QRS: -74 QRSD: 114 T: 84 QT: 385 QTc: 439 Interpretive Statements ATRIAL FIBRILLATION At 97 bpm LOW QRS VOLTAGE IN PRECORDIAL LEADS POSSIBLE RIGHT VENTRICULAR CONDUCTION DELAY LEFT ANTERIOR FASCICULAR BLOCK POSSIBLE OLD ANTERIOR MYOCARDIAL INFARCTION Mild NST Electronically Signed On 09-15-16 15:38:20 CDT by LEN MERCEDES [email or web address]
--- NOTE | 2016-09-10 14:55 | Ultrasound Report ---
US venous doppler LE BI Indication: Swelling. Comparison: No relevant comparison. Technique: Grayscale, spectral, and color Doppler interrogation of the bilateral lower extremity veins was performed. Augmentation and compression was performed. Findings: Grayscale, color Doppler, and pulsed Doppler evaluation of the veins of the bilateral lower extremity demonstrates no evidence of deep venous thrombosis. IMPRESSION: No evidence of deep venous thrombosis in either lower extremity. PROCEDURE INTERPRETED AT [facility] DEPARTMENT OF RADIOLOGY Final Report Signed by: Dr Isaak Jensen
[2016-09-10 15:03] LABS: ABG Base Excess 7.3 MMOL/L (-2.5-2.5); ABG HCO3 31.2 MMOL/L (20-26); ABG Oxygen Saturation 95.9 % (95-100); ABG PCO2 41.1 MM HG (35-48); ABG PH 7.498 (7.35-7.45); ABG PO2 80.7 MM HG (80-95); ABG TCO2 32.4 MMOL/L (23-27); Pt O2 Delivery Device CPAP
--- NOTE | 2016-09-10 15:35 | Cardiology Consult Note ---
<Kamla Ndiaye E - Last Filed: 09/10/16 15:33> Assessment and Plan - Time spent with patient Time spent with patient: Greater than 30 minutes (1) Acute diastolic CHF (congestive heart failure), NYHA class 4 Status: Acute Assessment and plan: SEE PLAN OF CARE LISTED BELOW Current Visit: Yes (2) SOB (shortness of breath) Status: Chronic Assessment and plan: SEE PLAN OF CARE LISTED BELOW Current Visit: Yes (3) Sleep apnea Status: Chronic Assessment and plan: SEE PLAN OF CARE LISTED BELOW Current Visit: Yes (4) History of COPD Status: Chronic Assessment and plan: SEE PLAN OF CARE LISTED BELOW Current Visit: No (5) Lymphoma Status: Chronic Current Visit: No (6) Morbid obesity Status: Chronic Assessment and plan: SEE PLAN OF CARE LISTED BELOW Current Visit: No (7) Atrial fibrillation with RVR Status: Chronic Assessment and plan: SEE PLAN OF CARE LISTED BELOW Current Visit: No (8) Urinary tract infection Status: Acute Assessment and plan: SEE PLAN OF CARE LISTED BELOW Current Visit: Yes (9) Hypertension Status: Chronic Assessment and plan: SEE PLAN OF CARE LISTED BELOW Current Visit: Yes History of Present Illness - Data of Consult Patient: known to practice within the last 3 years Consult date: 09/10/16 Requesting Physician: Darby Funes - Consult Narrative Reason for consult: CHF and atrial fibrillation History of present illness: BURR GRINDER: DR. GREER Ms. Blair, 66F, routinely followed by Dr. Greer. She was last seen in cardiology clinic August 21, 2016. Risk factors include morbid obesity, sedentary lifestyle. Past medical history includes chronic atrial fibrillation (takes Eliquis for stroke prevention), history of PE approximately 5 years ago, lymphoma (followed by Dr. Mukherjee), recent distal radius fracture requiring closed reduction with percutaneous pinning September 05, [address] Lang Jr[address] Patient presented to the emergency department at [facility] this morning with worsening shortness of breath 3 days. Since her left distal radius fracture, she reports that she has been progressively short of breath at night, particularly when lying flat. This is worsened over the weekend to the point that she felt as if she should be evaluated in the emergency department. Upon review, she has not been taking her diuretics at home nor using her oxygen at home. Patient tells me she was under the impression she was supposed to stop taking her Lasix per Dr. Greer's last clinic visit. However, his record does not reflect that. She has chronic shortness of breath for the past several years. She denies chest pain, heaviness or tightness. Chest x-ray on arrival reveals CHF decompensation. Also of note, atrial fibrillation with rapid ventricular response is noted. Venous ultrasound bilateral lower extremity reveals no evidence of DVT. WBCs are elevated at 24.6. Do not have additional information regarding type of lymphoma patient has. Dr. Mukherjee follows. Patient tells me her lymphoma, she believes, has worsened. Last CT chest showed enlargement of multiple lymph nodes which had increased by patient's report. Patient is currently being maintained on IV Cardizem 15 mg/h. Heart rate is averaging 90s-130s. Blood pressure is averaging 130s over 80s. Oral digoxin has been initiated and she has already had one dose. I will transition to IV digoxin starting tomorrow. She also takes oral diltiazem 240 mg orally each evening, Coreg 6.25 mg orally twice daily. Eliquis 5 mg orally twice daily. At this time, I will increase her Lasix to 80 mg IV twice daily as opposed to 40 mg IV twice daily with strict I&O and daily weights. Monitor labs closely. ProBNP in the morning as well as routine labs. Pulmonology has been consulted. May consider CT of chest. At this point, I see no need to repeat echocardiogram as her most recent echo was August 21, 2016. ASSESSMENT/PLAN: 1. ACUTE CHF - secondary to diastolic dysfunction, NYHA Class IV -continue with diuretics, daily weights, strict I&O. 2. CHRONIC ATRIAL FIBRILLATION NOW WITH RVR - takes Eliquis for stroke prevention. Will continue at this time. Also, restart her diuretics. Digoxin has been added for rate control. Continue IV Cardizem titrating to keep heart rate less than 100 bpm as able. Hopefully, with diuresis and adjusting her medications her heart rate will come under better control soon. 3. HYPERTENSION - usually well controlled 4. LYMPHOMA - Dr. Mukherjee has been consulted. 5. MORBID OBESITY - dietary counseling prior to discharge 6. SLEEP APNEA - using CPAP device at present 7. UTI - currently being treated 8. HISTORY OF COPD - pulmonology has been consulted 9. RECENT LEFT RADIAL FRACTURE S/P PINNING - continue current plan of care 10. HISTORY OF PTE -patient has a history of PTE over 5 years ago. At one time , she was taking Coumadin but it was difficult to control INR and she was switched to Eliquis. She tells me she has continued to take this twice daily without fail. It would be unlikely that she would have developed PTE on this regimen. 11. SOB -multifactorial to include acute CHF, COPD, sleep apnea, morbid obesity. Per patient's report her last CT of chest revealed increase in size of multiple lymph nodes in her chest and this could be contributing to her worsening shortness of breath. CT chest may be considered when she is no longer orthopneic. CC: Darby Funes MD - Home Medications and Allergies Home Medications: Home Medications Medication Instructions Recorded Confirmed Type Gabapentin Cap/Tab [Neurontin 600 mg PO BEDTIME 10/20/14 09/10/16 History Cap/Tab] Ipratropium/Albuterol Inhaler 1 puff INH QOTHER DAY PRN 10/20/14 09/10/16 History [Combivent Respimat Inhaler] Apixaban [Eliquis] 5 mg PO BID 12/21/15 09/10/16 History Isosorbide Mononitrate [Imdur] 15 mg PO QPM 12/21/15 09/10/16 History dilTIAZem HCl [Diltiazem 24Hr ER] 360 mg PO QPM 12/21/15 09/10/16 History Escitalopram [Lexapro] 10 mg PO QPM 06/24/16 09/10/16 History Furosemide Tab [Lasix Tab] 20 mg PO BID DIURETIC #60 tablet 06/24/16 09/10/16 Rx Mirabegron [Myrbetriq] 50 mg PO QPM 06/24/16 09/10/16 History Pramipexole Di-HCl [Pramipexole ER] 0.75 mg PO QPM 06/24/16 09/10/16 History Pantoprazole Sodium [Protonix] 40 mg PO QPM 09/05/16 09/10/16 History Promethazine HCl 25 mg PO Q4-6H PRN 09/05/16 09/10/16 History Tiotropium [place] [Spiriva 18 mcg IH BID 09/05/16 09/10/16 History Respimat] Albuterol Sulfate [Ventolin HFA] 1 puff INH Q4H PRN 09/10/16 09/10/16 History Metoprolol Succinate Xl [Toprol Xl] 25 mg PO QPM 09/10/16 09/10/16 History Allergies/Adverse Reactions: Allergies Allergy/AdvReac Type Severity Reaction Status Date / Time aspirin AdvReac Severe Nausea Verified 08/01/16 16:13 Review of systems: REVIEW OF SYSTEMS: - Constitutional Constitutional: Present: Fatigue. Absent: syncope, anorexia, night sweats - EENT Eyes: Absent: blurry vision, loss of vision, diplopia Ears: Absent: decreased hearing, ear pain, ear discharge - Cardiovascular Cardiovascular: Denies: chest pain with exertion. Absent: chest pain with deep breath, claudication - Respiratory Respiratory: Present: SMITH, denies cough. Absent: wheezing, hemoptysis, change in phlegm color - Gastrointestinal Gastrointestinal: Denies: constipation. Absent: abdominal pain, hematemesis, hematochezia, melena, change in bowel habits, nausea - Genitourinary Genitourinary: Absent: difficulty urinating, dysuria, urinary hesitancy, flank pain - Musculoskeletal Musculoskeletal: Present: back pain, chronic. Left arm pain. Absent: joint swelling, muscle cramps, muscle weakness - Neurological Neurological: Absent: dizziness, hemiparesis - Psychiatric Psychiatric: Absent: anxiety, depression, difficulty concentrating - Endocrine Endocrine: Present: fatigue. Absent: cold intolerance, heat intolerance, polyuria, polyphagia, polydipsia - Hematologic/Lymphatic Hematologic/Lymphatic: Present: easy bruising. Absent: easy bleeding -Integumentary Integumentary: Absent: lesions, rashes, skin breakdown Medical,Surgical,& Family Hx - Medical History Cardio: History of: Cardiac Dysrhythmia, CHF No history of: CAD, Hypertension, [place] Neurology: History of: Peripheral Neuropathy Respiratory: History of: COPD, Pulmonary Embolism Genitourinary: History of: Kidney Stones Gastrointestinal: History of: GERD (Recurrent hiatal hernia on most recent CT scan of chest) Hematology: No history of: Blood Transfusion Reaction Other: History of: Miscellaneous Medical Problems (lymphoma) No history of: Anesthesia Reactions - Surgical History Cardiac Surgeries: Sugical HX of: Cardiac Catheterization (Possible coronary study 8 years ago) Abdominal Surgeries: Surgical HX of: Cholecystectomy, EGD, Hernia Repair Reproductive Surgeries: Surgical HX of;: Section, Hysterectomy Orthopedic Surgeries: Surgical HX of;: Total Knee Replacement (bilateral) - Family History Family History: Reports;: Family Cancer (mother), Family Diabetes (grandmother) - Social History Smoking Status: Never smoker Have you smoked in the last 12 months: No Frequency of Alcohol Use: None Type of Drug Use: None Physical Examination Vital Signs Temp Pulse Resp BP Pulse Ox 98.1 F 138 H 32 H 133/94 93 L 09/10/16 10:55 09/10/16 10:55 09/10/16 10:55 09/10/16 10:55 09/10/16 10:55 General: [Tachypneic wearing Bi-Pap. ] [Pleasant and cooperative. ] [ HEENT: [PERRL, normocephalic, atraumatic. Mucous membranes moist. No jaundice noted. Conjunctiva moist and clear, sclerae anicteric] Neck: Unable to assess JVD due to habitus. Bilateral lobular enlargement of the thyroid noted. No carotid bruit appreciated Cardiac: [Irregularly irregular rhythm, tachycardia rate. No obvious murmur, rub or gallop appreciated. Lungs: [Inspiratory crackles noted posteriorly midway at both lung yoder. Tachypneic, orthopneic. Wearing BiPAP Abdomen: Soft, bowel sounds normoactive. Nontender and nondistended. No abdominal bruit or thrill noted. No masses noted. Musculoskeletal: No fluid collection. Decreased range of motion is noted. Extremities: No clubbing, cyanosis noted. [ No edema noted.] Right upper extremity pulse 2+. Left upper extremity in cast. Lower extremity pulses 2+. Capillary refill less than 3 seconds. Skin: No unusual lesions or rashes. No skin breakdown appreciated. Neuro: Awake, alert and oriented 3. Moves all extremities well without hemiparesis or paralysis. No essential tremor is appreciated. Result/EKG - Labs CBC & BMP: 09/10/16 12:10 09/10/16 12:10 Lab Results: I have reviewed the past 24 hour labs Labs: Laboratory Results - last 24 hr 09/10/16 09/10/16 14:48 14:55 ABG pH 7.498 H ABG pCO2 41.1 ABG pO2 80.7 ABG HCO3 31.2 H ABG Total CO2 32.4 H ABG O2 Saturation 95.9 ABG Base Excess 7.3 H FiO2 100.00 Hemoglobin A1c 6.1 - Diagnostic Findings Procedure: Chest x-ray: report reviewed by me, Ultrasound: report reviewed by me (Venous ultrasound bilateral lower extremity) - EKG EKG results: interpreted by me EKG shows: atrial fibrillation (Rapid ventricular response) <Edgardo Melendez - Last Filed: 09/10/16 16:52> History of Present Illness - Consult Narrative History of present illness: Patient is personally interviewed and examined and chart reviewed. I reviewed this case with Kamla Ndiaye NP. I agree with the assessment and evaluation and plan. In summation in addition Ms. Blair is a 66 year old female who is known to cardiology and followed by Dr. Greer who has obesity as well as chronic atrial fibrillation and recently stopped her Lasix. She now has progressive shortness of breath and is probably secondary to increased volume and failure to take diuretics. He is now back on diuretics IV. This patient certainly benefit from weight loss and compliance to medical therapy. She has a history of COPD which exacerbates any kind of cardiac issue and vice versa. We will monitor the patient and hopefully will be able to go to the floor soon. Patient will need to have stressed to her the importance of compliance and that when she has any questions about her medications to contact her physician. CC: Darby Funes MD Physical Examination Vital Signs Temp Pulse Resp BP Pulse Ox 98.1 F 138 H 32 H 133/94 93 L 09/10/16 10:55 09/10/16 10:55 09/10/16 10:55 09/10/16 10:55 09/10/16 10:55 Result/EKG - Labs CBC & BMP: 09/10/16 12:10 09/10/16 12:10 Labs: Laboratory Results - last 24 hr 09/10/16 09/10/16 09/10/16 14:48 14:48 14:55 ABG pH 7.498 H ABG pCO2 41.1 ABG pO2 80.7 ABG HCO3 31.2 H ABG Total CO2 32.4 H ABG O2 Saturation 95.9 ABG Base Excess 7.3 H FiO2 100.00 Hemoglobin A1c 6.1 Troponin I < 0.015 Free T4 1.54 H TSH 3rd Generation 0.412
[2016-09-10 15:42] LABS: Free T4 (Free Thyroxine) 1.54 NG/DL (0.76-1.46); Thyroid Stimulating Hormone 0.412 uIU/ml (0.358-3.74); Troponin I Only < 0.015 NG/ML (0.00-0.045)
--- NOTE | 2016-09-10 15:56 | EKG Report ---
Stationary ECG Study [facility] ER Test Date: 09/10/2016 10:59:05 AM Pat Name: JADA BECKMAN Department: Room: 128 Gender: F [employer]: : 1950 Requested by: Rj Torrez Order Number: [id number] Reading MD: LEN MERCEDES Intervals [place] Rate: 123 P: 999 [place]: 0 QRS: -66 QRSD: 105 T: 102 QT: 304 QTc: 377 Interpretive Statements ATRIAL FIBRILLATION WITH RAPID VENTRICULAR RESPONSE At 123 bpm LOW QRS VOLTAGE IN PRECORDIAL LEADS LEFT ANTERIOR FASCICULAR BLOCK POSSIBLE ANTERIOR MYOCARDIAL INFARCTION, PROBABLY OLD Electronically Signed On 09-15-16 15:33:18 CDT by LEN MERCEDES [email or web address]
[2016-09-10] MEDS ORDERED: FUROSEMIDE 40 MG/4 ML VIAL IV SCH (16:00)
[2016-09-10] MEDS: PIPERACILLIN/TAZOBACTAM 3,375 MG in SODIUM CHLORIDE 0.9% 100 ML IV SCH (16:05)
[2016-09-10] MEDS: PANTOPRAZOLE 40 MG TABLET PO SCH (16:05)
[2016-09-10] MEDS: CARVEDILOL 6.25 MG TABLET PO SCH ×2 (16:06→21:17)
[2016-09-10] MEDS ORDERED: FUROSEMIDE 40 MG/4 ML VIAL IV ONE (16:16)
--- NOTE | 2016-09-10 17:30 | Sleep Medicine Consult ---
Assessment and Plan (1) LALY (obstructive sleep apnea) Status: Acute Assessment and plan: This patient may have a history of obstructive sleep apnea and I will have to check old records in the sleep lab to see if we have a prior sleep study on her. She certainly does need evaluation again but is too unstable to do so now. Her pulmonary status is certainly not stable enough for sleep evaluation and I pulmonary evaluation and treatment. I would defer management of CPAP/ BiPAP to pulmonary in the status given her hypoxic respiratory failure and her current medical condition. Once stable, we can proceed with sleep evaluation. Current Visit: Yes (2) Atrial fibrillation with rapid ventricular response Status: Acute Assessment and plan: Untreated sleep apnea certainly can be a contributing factor to atrial fibrillation and we will follow-up with her in the sleep clinic after medical stabilization or in this hospital if stable enough to do so. Current Visit: No History of Present Illness Chief complaint: Obstructive sleep apnea History of present illness: Ms. Blair is a 66 year old female admitted with atrial fib with rapid ventricular response. She was admitted to the CCU and has had hypoxic respiratory failure and has been on BiPAP and supplemental oxygen. She is eating supper on 4 L/min O2 and has O2 sats in the 70s. She states that she was evaluated several years ago for sleep apnea by sleep study here at [facility]. She was followed by Dr. Everett at that time and was told that she was borderline for sleep apnea and that further evaluation was recommended. She continues to snore and does awaken from sleep short of breath. She stays awake at night predominantly watching TV in her bed and sleeps throughout the day in her bed. She does have to get up frequently to urinate. She is very bothered by restless legs and discomfort in her feet. Home Medications Medication Instructions Recorded Confirmed Type Gabapentin Cap/Tab [Neurontin 600 mg PO BEDTIME 10/20/14 09/10/16 History Cap/Tab] Ipratropium/Albuterol Inhaler 1 puff INH QOTHER DAY PRN 10/20/14 09/10/16 History [Combivent Respimat Inhaler] Apixaban [Eliquis] 5 mg PO BID 12/21/15 09/10/16 History Isosorbide Mononitrate [Imdur] 15 mg PO QPM 12/21/15 09/10/16 History dilTIAZem HCl [Diltiazem 24Hr ER] 360 mg PO QPM 12/21/15 09/10/16 History Escitalopram [Lexapro] 10 mg PO QPM 06/24/16 09/10/16 History Furosemide Tab [Lasix Tab] 20 mg PO BID DIURETIC #60 tablet 06/24/16 09/10/16 Rx Mirabegron [Myrbetriq] 50 mg PO QPM 06/24/16 09/10/16 History Pramipexole Di-HCl [Pramipexole ER] 0.75 mg PO QPM 06/24/16 09/10/16 History Pantoprazole Sodium [Protonix] 40 mg PO QPM 09/05/16 09/10/16 History Promethazine HCl 25 mg PO Q4-6H PRN 09/05/16 09/10/16 History Tiotropium [place] [Spiriva 18 mcg IH BID 09/05/16 09/10/16 History Respimat] Albuterol Sulfate [Ventolin HFA] 1 puff INH Q4H PRN 09/10/16 09/10/16 History Metoprolol Succinate Xl [Toprol Xl] 25 mg PO QPM 09/10/16 09/10/16 History Allergies Allergy/AdvReac Type Severity Reaction Status Date / Time aspirin AdvReac Severe Nausea Verified 08/01/16 16:13 Review of systems: Notable for chronic problems with dyspnea. Exam (Pulmonay) H&P - Constitutional Vitals: Period Temp Pulse Resp BP Sys/Leyva Pulse Ox Last 24 Hr 118 24-33 Exam: This patient is in mild respiratory distress. O2 sats in the 70s. Pupils equal round reactive to light and accommodation. Extraocular movements intact. Oropharynx notable for old blood on the hard palate prior to her upper plate. She has a class III Mallampati exam. Neck is supple without adenopathy. Chest with coarse crackles and rhonchi bilaterally. Cardiac exam reveals a regular rhythm without murmur or gallop. Abdomen obese nontender without palpable hepatosplenomegaly or mass. Extremities without significant edema or clubbing. Neurologically, she is grossly intact. She answers all questions appropriately and moves all extremities with good strength. Medical,Surgical,& Family Hx - Medical History Cardio: History of: Cardiac Dysrhythmia, CHF No history of: CAD, Hypertension, [place] Neurology: History of: Peripheral Neuropathy Respiratory: History of: COPD, Pulmonary Embolism Genitourinary: History of: Kidney Stones Gastrointestinal: History of: GERD (Recurrent hiatal hernia on most recent CT scan of chest) Hematology: No history of: Blood Transfusion Reaction Other: History of: Miscellaneous Medical Problems (lymphoma) No history of: Anesthesia Reactions - Surgical History Cardiac Surgeries: Sugical HX of: Cardiac Catheterization (Possible coronary study 8 years ago) Abdominal Surgeries: Surgical HX of: Cholecystectomy, EGD, Hernia Repair Reproductive Surgeries: Surgical HX of;: Section, Hysterectomy Orthopedic Surgeries: Surgical HX of;: Total Knee Replacement (bilateral) - Family History Family History: Reports;: Family Cancer (mother), Family Diabetes (grandmother) - Social History Smoking Status: Never smoker Frequency of Alcohol Use: None Type of Drug Use: None Results - Labs CBC & BMP: 09/10/16 12:10 09/10/16 12:10 Lab Results: I have reviewed the past 24 hour labs Labs: Patient had a PO2 in the 70s on 100% FiO2
[2016-09-10] MEDS ORDERED: ESCITALOPRAM 10 MG TABLET PO SCH (19:00)
[2016-09-10] MEDS ORDERED: ISOSORBIDE MONONITRATE 30 MG TABLET PO SCH (19:00)
[2016-09-10] MEDS: ALBUTEROL/IPRATROPIUM 3 ML NEB RESP TX SCH (20:20)
[2016-09-10] MEDS ORDERED: DILTIAZEM CD 120 MG CAPSULE PO SCH (21:00)
--- NOTE | 2016-09-10 21:07 | ECHO Report ---
Faviola Blair Exam Date: 09/10/2016 15:15 Referring Physician: Technologist: Tara Schultz Age: 66 Ht (in): 64 Wt (lb): 250 Gender: F Exam Location: [facility] Echo Indications: SOB BP: / HR: Rhythm: atrial fibrillation Technical Quality: Technically difficult study IMPRESSIONS 1. The patient rhythm is atrial fibrillation 2. Left ventricle is normal size with normal systolic function ejection fraction 55-60%. There is mild concentric left ventricular hypertrophy. Diastolic dysfunction is not obtainable with the patient atrial fibrillation as well as tachycardia. 3. Other cardiac chambers normal size. 4. Trace to mild mitral valve regurgitation. 5. Mild tricuspid valve regurgitation 6. Right-sided pressures appear to be grossly normal. MEASUREMENTS (Male / Female) Normal Values 2D ECHO LV Diastolic Diameter PLAX 5.1 cm 4.2 - 5.9 / 3.9 - 5.3 cm LV Systolic Diameter PLAX 3.6 cm LV Fractional Shortening PLAX 30.7 % IVS Diastolic Thickness 1.7 cm 0.6 - 1.0 / 0.6 - 0.9 cm LVPW Diastolic Thickness 1.0 cm 0.6 - 1.0 / 0.6 - 0.9 cm RV Internal Dim ED PLAX 2.8 cm Aortic Root Diameter 2.4 cm LA Systolic Diameter LX 3.8 cm 3.0 - 4.0 / 2.7 - 3.8 cm DOPPLER TR Peak Velocity 272.0 cm/s TR Peak Gradient 29.6 mmHg FINDINGS Left Ventricle Left ventricle is normal size systolic function ejection fraction 55 6%. Mild concentric left ventricular hypertrophy is present. Right Ventricle Normal right ventricular size. Right Atrium Normal right atrial size. Left Atrium Normal left atrial size. Mitral Valve Mitral valve sclerosis. Trace to mild mitral valve regurgitation. Aortic Valve Aortic valve sclerosis without stenosis or regurgitation. Tricuspid Valve Morphologically normal tricuspid valve. Mild tricuspid valve regurgitation. Tricuspid regurgitation velocities suggest a PAP of 29.6 mmHg + RAP. Pulmonic Valve Morphologically normal pulmonic valve. Pericardium No pericardial effusion. Aorta Normal size aortic root and proximal ascending aorta. Edgardo Melendez MD (Electronically Signed) Final Date: 10 Sep 2016 21:06
[2016-09-10] MEDS: PRAMIPEXOLE 0.25 MG TABLET PO SCH (21:16)
[2016-09-10] MEDS: APIXABAN 5 MG TABLET PO SCH (21:17)
[2016-09-10] MEDS: DILTIAZEM CD 240 MG CAPSULE PO SCH (21:17)
[2016-09-10] MEDS: FAMOTIDINE 20 MG/2 ML VIAL IV SCH (21:18)
[2016-09-10] MEDS: IPRATROPIUM 500 MCG/2.5 ML NEB RESP TX SCH (21:27)
[2016-09-11] MEDS: PIPERACILLIN/TAZOBACTAM 3,375 MG in SODIUM CHLORIDE 0.9% 100 ML IV SCH ×4 (00:39→23:42)
[2016-09-11] MEDS: ALBUTEROL/IPRATROPIUM 3 ML NEB RESP TX SCH ×5 (01:30→19:22)
[2016-09-11 05:32] LABS: Basophils # 0.1 10*3/uL (0.0-0.2); Basophils % 0.5 % (0.0-0.8); Eosinophils # 0.5 10*3/uL (0.0-0.87); Eosinophils % 2.7 % (0.00-10.9); Hemoglobin 8.9 GM/DL (12.0-16.0); Immature Granulocytes % 0.7 %; Immature Granulocytes Absolute 0.12 #; Lymphocytes # 3.8 10*3/uL (1.4-4.0); Lymphocytes % 21.1 % (21.3-54.2); Mean Corpuscular HGB Conc 29.7 GM/DL (32-36); Mean Corpuscular Hemoglobin 23 PG (27-34); Mean Corpuscular Volume 78.5 FL (87-102); Mean Platelet Volume 11.3 FL (9.6-12.0); Monocytes # 1.1 10*3/uL (0.11-0.8); Monocytes % 6.3 % (1.7-12.7); Neutrophils # 12.5 10*3/uL (1.4-7.4); Neutrophils % 68.7 % (38.7-73.9); Platelet Count 225 T/CUMM (130-400); Red Blood Count 3.82 MC/CUMM (3.8-5.5); Red Cell Distribution Width 17.2 % (9.3-17.3); White Blood Count 18.2 T/CUMM (4-12)
[2016-09-11 06:07] LABS: Calcium 8.5 MG/DL (8.5-10.1); Magnesium 1.9 MG/DL (1.8-2.4); Osmolality,Calculated 278.5 MOS/KG (273-304); Potassium 3.7 MMOL/L (3.5-5.1)
[2016-09-11 06:21] LABS: Risk Ratio 1.92; VLDL CHOLESTEROL 11.2 MG/DL
[2016-09-11] MEDS: IPRATROPIUM 500 MCG/2.5 ML NEB RESP TX SCH (07:56)
[2016-09-11] MEDS ORDERED: FUROSEMIDE 40 MG/4 ML VIAL IV SCH (08:00)
[2016-09-11] MEDS: CARVEDILOL 6.25 MG TABLET PO SCH ×2 (08:16→20:41)
[2016-09-11] MEDS: PANTOPRAZOLE 40 MG TABLET PO SCH (08:16)
[2016-09-11] MEDS: APIXABAN 5 MG TABLET PO SCH ×2 (08:17→20:41)
[2016-09-11] MEDS: FAMOTIDINE 20 MG/2 ML VIAL IV SCH ×2 (08:24→20:44)
--- NOTE | 2016-09-11 08:51 | Oncology Progress Note ---
Oncology Subjective PN Interval history: Patient with several year history of chronic lymphocytic leukemia. Admitted with shortness of breath and hypoxic respiratory failure. Events notable for fall and fracture of left arm 7 days prior. I have reviewed clinic records showing a white blood count of 17,000 from July 2016. She does appear to have worsening of her anemia with microcytic indices with a ferritin to be ordered. She does not have indications for CLL treatment at this time Exam - Constitutional Vitals: Period Temp Pulse Resp BP Sys/Leyva Pulse Ox Last 24 Hr 98.2 F-98.9 F 62-118 16-65 92-219/44-181 88-100 Results - Labs CBC & BMP: 09/11/16 05:20 09/11/16 05:20
[2016-09-11] MEDS ORDERED: DIGOXIN 0.5 MG/2 ML AMP IV SCH (09:00)
--- NOTE | 2016-09-11 09:15 | Cardiology Progress Note ---
<Kamla Ndiaye E - Last Filed: 09/11/16 09:04> Assessment and Plan - Time spent with patient Time spent with patient: Greater than 30 minutes (1) Acute diastolic CHF (congestive heart failure), NYHA class 4 Status: Acute Assessment and plan: SEE PLAN OF CARE LISTED BELOW Current Visit: Yes (2) SOB (shortness of breath) Status: Chronic Assessment and plan: SEE PLAN OF CARE LISTED BELOW Current Visit: Yes (3) Sleep apnea Status: Chronic Assessment and plan: SEE PLAN OF CARE LISTED BELOW Current Visit: Yes (4) History of COPD Status: Chronic Assessment and plan: SEE PLAN OF CARE LISTED BELOW Current Visit: No (5) Lymphoma Status: Chronic Current Visit: No (6) Morbid obesity Status: Chronic Assessment and plan: SEE PLAN OF CARE LISTED BELOW Current Visit: No (7) Atrial fibrillation with RVR Status: Chronic Assessment and plan: SEE PLAN OF CARE LISTED BELOW Current Visit: No (8) Urinary tract infection Status: Acute Assessment and plan: SEE PLAN OF CARE LISTED BELOW Current Visit: Yes (9) Hypertension Status: Chronic Assessment and plan: SEE PLAN OF CARE LISTED BELOW Current Visit: Yes Cardiology - PN: Subj Interval history: SENIOR ADVISOR: DR. STANTON SUMMARY: Ms. Blair, has history of: chronic atrial fibrillation (takes Eliquis for stroke prevention), history of PE approximately 5 years ago, chronic lymphocytic leukemia, (followed by Dr. Mukherjee), recent distal radius fracture requiring closed reduction with percutaneous pinning September 05, [address] Lang Jr[address] She was admitted September 10, 2016 with worsening shortness of breath 3 days. She was found to be in atrial fibrillation with rapid ventricular response. She has been diagnosed with hypoxia related to acute CHF, COPD, possible sleep apnea. Diagnosed with UTI as well. SEPTEMBER 11, 2016: Patient was weaned off her IV Cardizem last evening and heart rates have improved. She remains in atrial fibrillation, controlled rate. Digoxin was initiated yesterday. After her IV dose of digoxin today, will transition to oral digoxin. Daily weight does not reflect weight loss. Dr. Mishra has seen patient and will arrange for outpatient sleep study when her current comorbidities improved. Dr. Mukherjee has also seen patient this morning. She has a history of CLL and, at this time, not requiring treatment. ASSESSMENT/PLAN: 1. ACUTE CHF - secondary to diastolic dysfunction, NYHA Class IIII -continue with diuretics, daily weights, strict I&O. 2. CHRONIC ATRIAL FIBRILLATION NOW WITH RVR - takes Eliquis for stroke prevention. Will continue at this time. Continue diuretics. Change IV Digoxin to oral digoxin starting tomorrow. 3. HYPERTENSION - well controlled 4. CHRONIC LYMPHOCYTIC LEUKEMIA - Dr. Mukherjee following. 5. MORBID OBESITY - dietary counseling prior to discharge 6. SUSPECTED SLEEP APNEA - Dr. Mishra will schedule outpatient sleep study when she has improved. 7. UTI - currently being treated 8. HISTORY OF COPD - continue pulmonary toilet. 9. RECENT LEFT RADIAL FRACTURE S/P PINNING - continue current plan of care 10. HISTORY OF PTE -patient has a history of PTE over 5 years ago. At one time , she was taking Coumadin but it was difficult to control INR and she was switched to Eliquis. She tells me she has continued to take this twice daily without fail. It would be unlikely that she would have developed PTE on this regimen. 11. SOB -multifactorial to include acute CHF, COPD, suspected sleep apnea, morbid obesity. Per patient's report her last CT of chest revealed increase in size of multiple lymph nodes in her chest and this could be contributing to her worsening shortness of breath. CT chest may be considered when she is no longer orthopneic. 12. ANEMIA - continue to monitor closely. Exam (Progress Note) - Constitutional Vitals: Period Temp Pulse Resp BP Sys/Leyva Pulse Ox Last 24 Hr 98.2 F-98.9 F 62-118 16-65 92-219/44-181 88-100 Exam: General: [Appears well with no apparent distress.] [Pleasant and cooperative. ] [Appears comfortable.] HEENT: [PERRL, normocephalic, atraumatic. Mucous membranes moist. No jaundice noted. Conjunctiva moist and clear, sclerae anicteric] Neck: Difficult to assess for JVD due to habitus. No carotid bruits appreciated. Cardiac: [Irregularly irregular rhythm, controlled rate.] [No murmur rub or gallop.] Lungs: [Inspiratory crackles noted posteriorly or in the bases. No end expiratory wheezes noted. Requiring oxygen via facemask. Tachypnea has improved Abdomen: Soft, bowel sounds normoactive. Nontender and nondistended. No abdominal bruit or thrill noted. No masses noted. Pablo catheter intact draining clear yellow urine. Musculoskeletal: No fluid collection. Decreased range of motion is noted. Extremities: No clubbing, cyanosis noted. [ No edema noted.] Upper extremity pulses 2+. Lower extremity pulses 2+. Capillary refill less than 3 seconds. Skin: No unusual lesions or rashes. No skin breakdown appreciated. Neuro: Awake, alert and oriented 3. Moves all extremities well without hemiparesis or paralysis. No essential tremor is appreciated. Result/EKG - Labs CBC & BMP: 09/11/16 05:20 09/11/16 05:20 Lab Results: I have reviewed the past 24 hour labs Labs: Laboratory Results - last 24 hr 09/10/16 09/10/16 09/10/16 14:48 14:48 14:55 WBC RBC Hgb Hct MCV MCH MCHC RDW Plt Count MPV Neut % (Auto) Lymph % (Auto) [place] % (Auto) Eos % (Auto) Baso % (Auto) Neut # (Auto) Lymph # (Auto) [place] # (Auto) Eos # (Auto) Baso # (Auto) Immature Gran % Nucleated RBC % Immature Gran # Nucleated RBCs # ABG pH 7.498 H ABG pCO2 41.1 ABG pO2 80.7 ABG HCO3 31.2 H ABG Total CO2 32.4 H ABG O2 Saturation 95.9 ABG Base Excess 7.3 H FiO2 100.00 Sodium Potassium Chloride Carbon Dioxide Anion Gap BUN Creatinine GFR Calculation BUN/Creatinine Ratio Glucose Hemoglobin A1c 6.1 Calculated Osmolality Calcium Magnesium Troponin I < 0.015 B-Natriuretic Peptide Triglycerides Cholesterol LDL Cholesterol VLDL Cholesterol HDL Cholesterol Heart Disease Risk Ratio Free T4 1.54 H TSH 3rd Generation 0.412 09/10/16 09/11/16 09/11/16 18:22 05:20 05:20 WBC 18.2 H RBC 3.82 Hgb 8.9 L Hct 30.0 L MCV 78.5 L MCH 23 L MCHC 29.7 L RDW 17.2 Plt Count 225 MPV 11.3 Neut % (Auto) 68.7 Lymph % (Auto) 21.1 L [place] % (Auto) 6.3 Eos % (Auto) 2.7 Baso % (Auto) 0.5 Neut # (Auto) 12.5 H Lymph # (Auto) 3.8 [place] # (Auto) 1.1 H Eos # (Auto) 0.5 Baso # (Auto) 0.1 Immature Gran % 0.7 Nucleated RBC % 0.0 Immature Gran # 0.12 Nucleated RBCs # 0.00 ABG pH ABG pCO2 ABG pO2 ABG HCO3 ABG Total CO2 ABG O2 Saturation ABG Base Excess FiO2 Sodium Potassium Chloride Carbon Dioxide Anion Gap BUN Creatinine GFR Calculation BUN/Creatinine Ratio Glucose Hemoglobin A1c Calculated Osmolality Calcium Magnesium Troponin I < 0.015 B-Natriuretic Peptide Triglycerides 56 Cholesterol 98 LDL Cholesterol 42.0 VLDL Cholesterol 11.2 HDL Cholesterol 51 Heart Disease Risk Ratio 1.92 Free T4 TSH 3rd Generation 09/11/16 09/11/16 05:20 05:20 WBC RBC Hgb Hct MCV MCH MCHC RDW Plt Count MPV Neut % (Auto) Lymph % (Auto) [place] % (Auto) Eos % (Auto) Baso % (Auto) Neut # (Auto) Lymph # (Auto) [place] # (Auto) Eos # (Auto) Baso # (Auto) Immature Gran % Nucleated RBC % Immature Gran # Nucleated RBCs # ABG pH ABG pCO2 ABG pO2 ABG HCO3 ABG Total CO2 ABG O2 Saturation ABG Base Excess FiO2 Sodium 139 Potassium 3.7 Chloride 99 Carbon Dioxide 31 Anion Gap 12.7 BUN 18 Creatinine 1.40 H GFR Calculation 51 BUN/Creatinine Ratio 12.00 Glucose 93 Hemoglobin A1c Calculated Osmolality 278.5 Calcium 8.5 Magnesium 1.9 Troponin I B-Natriuretic Peptide 297 H Triglycerides Cholesterol LDL Cholesterol VLDL Cholesterol HDL Cholesterol Heart Disease Risk Ratio Free T4 TSH 3rd Generation - EKG EKG results: interpreted by me EKG shows: atrial fibrillation <Edgardo Melendez - Last Filed: 09/11/16 10:44> Cardiology - PN: Subj Interval history: The patient's personal interview and examination chart reviewed. Her family was present the time of my visit. I discussed this with the son and grandson. I did review the case with Kamla Ndiaye NP. I agree with the assessment and evaluation and plan. The patient generally has markedly improved. Her heart rate some much better. She to marked improvement in her fluid balance being very negative yesterday. Her weights do not reflect this but I did question the weights. With improvement of her physiologic stress of being more comparable this is helped improve her heart rates and blood pressure. We will need to monitor these and specialist since we had added her digoxin. Her lab work is been reviewed and her troponins were nondetectable. Her BNP is better today. She did not have a chest x-ray to my arrival but one has been ordered and we are actually coming to do it is I'm dictating this. We'll need to watch her digitoxin level. She has a bandage/immobilizing tight cast on her left forearm secondary to recent fracture. Exam (Progress Note) - Constitutional Vitals: Period Temp Pulse Resp BP Sys/Leyva Pulse Ox Last 24 Hr 98.2 F-98.9 F 62-118 16-65 92-219/44-181 88-100 Result/EKG - Labs CBC & BMP: 09/11/16 05:20 09/11/16 05:20 Labs: Laboratory Results - last 24 hr 09/10/16 09/10/16 09/10/16 14:48 14:48 14:55 WBC RBC Hgb Hct MCV MCH MCHC RDW Plt Count MPV Neut % (Auto) Lymph % (Auto) [place] % (Auto) Eos % (Auto) Baso % (Auto) Neut # (Auto) Lymph # (Auto) [place] # (Auto) Eos # (Auto) Baso # (Auto) Immature Gran % Nucleated RBC % Immature Gran # Nucleated RBCs # ABG pH 7.498 H ABG pCO2 41.1 ABG pO2 80.7 ABG HCO3 31.2 H ABG Total CO2 32.4 H ABG O2 Saturation 95.9 ABG Base Excess 7.3 H FiO2 100.00 Sodium Potassium Chloride Carbon Dioxide Anion Gap BUN Creatinine GFR Calculation BUN/Creatinine Ratio Glucose Hemoglobin A1c 6.1 Calculated Osmolality Calcium Magnesium Ferritin Troponin I < 0.015 B-Natriuretic Peptide Triglycerides Cholesterol LDL Cholesterol VLDL Cholesterol HDL Cholesterol Heart Disease Risk Ratio Free T4 1.54 H TSH 3rd Generation 0.412 09/10/16 09/11/16 09/11/16 18:22 05:15 05:20 WBC 18.2 H RBC 3.82 Hgb 8.9 L Hct 30.0 L MCV 78.5 L MCH 23 L MCHC 29.7 L RDW 17.2 Plt Count 225 MPV 11.3 Neut % (Auto) 68.7 Lymph % (Auto) 21.1 L [place] % (Auto) 6.3 Eos % (Auto) 2.7 Baso % (Auto) 0.5 Neut # (Auto) 12.5 H Lymph # (Auto) 3.8 [place] # (Auto) 1.1 H Eos # (Auto) 0.5 Baso # (Auto) 0.1 Immature Gran % 0.7 Nucleated RBC % 0.0 Immature Gran # 0.12 Nucleated RBCs # 0.00 ABG pH ABG pCO2 ABG pO2 ABG HCO3 ABG Total CO2 ABG O2 Saturation ABG Base Excess FiO2 Sodium Potassium Chloride Carbon Dioxide Anion Gap BUN Creatinine GFR Calculation BUN/Creatinine Ratio Glucose Hemoglobin A1c Calculated Osmolality Calcium Magnesium Ferritin 38.9 Troponin I < 0.015 B-Natriuretic Peptide Triglycerides Cholesterol LDL Cholesterol VLDL Cholesterol HDL Cholesterol Heart Disease Risk Ratio Free T4 TSH 3rd Generation 09/11/16 09/11/16 09/11/16 05:20 05:20 05:20 WBC RBC Hgb Hct MCV MCH MCHC RDW Plt Count MPV Neut % (Auto) Lymph % (Auto) [place] % (Auto) Eos % (Auto) Baso % (Auto) Neut # (Auto) Lymph # (Auto) [place] # (Auto) Eos # (Auto) Baso # (Auto) Immature Gran % Nucleated RBC % Immature Gran # Nucleated RBCs # ABG pH ABG pCO2 ABG pO2 ABG HCO3 ABG Total CO2 ABG O2 Saturation ABG Base Excess FiO2 Sodium 139 Potassium 3.7 Chloride 99 Carbon Dioxide 31 Anion Gap 12.7 BUN 18 Creatinine 1.40 H GFR Calculation 51 BUN/Creatinine Ratio 12.00 Glucose 93 Hemoglobin A1c Calculated Osmolality 278.5 Calcium 8.5 Magnesium 1.9 Ferritin Troponin I B-Natriuretic Peptide 297 H Triglycerides 56 Cholesterol 98 LDL Cholesterol 42.0 VLDL Cholesterol 11.2 HDL Cholesterol 51 Heart Disease Risk Ratio 1.92 Free T4 TSH 3rd Generation
--- NOTE | 2016-09-11 10:34 | Physician Query Form ---
CLICK EDIT DOCUMENT TO SELECT QUERY ANSWER --> OK --> SIGN Karen Magdaleno RN Clinical Dam Attendant W) [phone] (f) [phone] [email or web address] PROVIDERS: Make your selection(s) from the choices in EACH section by typing an "x" and enter comments in the comment section. Please use your independent medical judgment in providing your response. This request does not imply that any particular answer is desired or expected. CLINICAL INDICATORS: (Providers should not edit this section) Pt. admitted with CHF and diuresed with IV Lasix. Creatinine on admission of 1.00 and increased to 1.40 with a GFR of 51. Clarify which of the following most accurately represents the patient's renal status: (x ) Acute kidney injury (non-traumatic) ( ) Acute renal failure ( ) Other, please specify: ( ) Clinically unable to determine Chronic Kidney Disease Stages Source: National Kidney Disease Foundation ( ) Stage I (eGFR > or = 90) ( ) Stage II (eGFR 60 - 89) ( ) Stage III (eGFR 30 - 59) ( ) Stage IV (eGFR 15 - 29) ( ) Stage V (eGFR < 15 or dialysis) COMMENTS: Use of terms such as suspected, likely, or probable (associated with a specific diagnosis that is being evaluated, monitored, or treated as if it exists) are acceptable and can be restated in the discharge summary if not ruled out. MTDD
--- NOTE | 2016-09-11 10:59 | Pulmonology Consult Note ---
History of Present Illness Chief complaint: Congestive heart failure. Hypoxemia History of present illness: Ms. Blair is a 66 year old white female whom I been asked to see in pulmonary consultation for evaluation and treatment. This patient fell a week or so ago and fractured her left arm. Because it was already hard for her to get up and get out of bed she stopped taking her Lasix. Her son said that there are times he thinks she skips it even when circumstances are better than they are now. Patient was admitted to the hospital with severe shortness of breath dyspnea on exertion and severe hypoxemia. She required CPAP last night for adequate oxygenation. Prior to admit chest x-ray showed congestive heart failure. Today's chest x-ray shows marked improvement. There is a persistent enlargement of the right hilum that appears to be old and calcified. She has been seen in sleep consultation by Dr. Rekha Mishra. 2013 she had preliminary tests for sleep apnea but did not follow-up. She was seen by Dr. Doe Everett in 2013. More recently she has been seen by Leanne Schafer nurse practitioner in internal medicine clinic. This patient was seen along with her son and a grandson and some of this history was obtained from them. She is not a good historian and it appears from what they say she is not a reliable historian. The remainder the physical exam is noncontributory Allergies. Aspirin Home medicines. See below Hospital medicines see below Past history. 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 This is treated by Dr. Edgardo Mukherjee. History of COPD. Her son said she stopped smoking about 30 years ago. Patient has a long history of atrial fib. She has been followed by Dr. Demar Greer. She has had a peripheral neuropathy and history of kidney stones. She has had a hiatal hernia and a history of gastroesophageal reflux. There is a past history of congestive heart failure. The patient's on chronic anticoagulation. There is also a past history of pulmonary emboli. She is previously had a cholecystectomy hysterectomy, bilateral knee total knee replaced and a biopsy of the liver. Social history. Patient was a smoker who stopped smoking about 30 years ago. Does not use alcohol. Family history. Her mother had cancer and grandmother had diabetes. There is a family history of brain cancer and a family history of uterine cancer. Chest x-ray. 09/10/2016. Acute congestive heart failure Chest x-ray 09/11/2016. 80% resolution of congestive heart failure. Large stable partially calcified right hilum. Doppler venograms of the lower extremities. 09/10/2016. No clots. Echocardiogram. Ejection fraction of 55-60 range. ABGs. 09/10/2016. FiO2 100%. PH 7.498. PCO2 41.1. PO2 80.7. Bicarb 31.2. Lab. Electrolytes normal. Creatinine was 1.0 at admission now 1.4. Natruretic peptide was 538 at admission. Now 297. Urine is nitrate positive. H&H is 01/31. Red blood cell indices are decreased and red blood cell distribution width is increased. Platelets of 235,000. INR is 1.3. White blood cell count at admission was 24,600 and is dropped 18,200 with 69 segs 21 lymphs Labs been reviewed. Medicines have been reviewed. Physical exam. Vital signs.'s see below. Psychiatric. Oriented 3 and tries to cooperate with history. Neurologic. Cranial nerves are intact. Patient moves all 4 extremities. Face. Symmetrical. Lips and tongue are normal. Neck. Kyphotic. No mass. No meningismus. Lymphatics. No submandibular cervical supraclavicular adenopathy. Chest is symmetrical kyphotic with decreased inspiratory excursion. I did not hear any wheezes. Chest wall is nontender. Heart irregular at 80-85 bpm Breast deferred Abdomen the liver edge is firm and at least 2 fingerbreadths below the costal margin in the right upper quadrant. Bowel sounds are present. Lower extremities. Mild chronic venous stasis changes. No obvious deep venous thrombophlebitis. Bilateral knee surgery. Skin of the face and hands show no cancerous infectious lesions. Appropriate on the dorsum of both upper extremities. No other areas of skin were examined. The remainder of the physical exam is negative. Impression. 1. Acute congestive heart failure. Note failure to take Lasix. 2. Chronic atrial fib. Probable heart disease, note the patient takes nitrates. Followed by Dr. Demar Greer 3. Chronic anticoagulation 4. Severe hypoxemia. Probably related to acute congestive heart failure. Past history of smoking in past history of pulmonary emboli are probably contributory. 5. Probable obstructive sleep apnea 6. Follicular lymphoma. Followed by Dr. Edgardo Mukherjee 7. Anemia. Abnormal red blood cell indices. Look for B12 deficiency, folic acid deficiency, iron deficiency. 8. See past history Plan. #1 repeat ABGs off BiPAP 2. Serial chest x-ray. 3. Watch creatinine and BUN. Note recent increase. 4. Sputum for Gram stain culture and sensitivity 5. Iron, total iron binding capacity, B12 level, folic acid level, reticulocyte count. 6. See orders. Home Medications Medication Instructions Recorded Confirmed Type Gabapentin Cap/Tab [Neurontin 600 mg PO BEDTIME 10/20/14 09/10/16 History Cap/Tab] Ipratropium/Albuterol Inhaler 1 puff INH QOTHER DAY PRN 10/20/14 09/10/16 History [Combivent Respimat Inhaler] Apixaban [Eliquis] 5 mg PO BID 12/21/15 09/10/16 History Isosorbide Mononitrate [Imdur] 15 mg PO QPM 12/21/15 09/10/16 History dilTIAZem HCl [Diltiazem 24Hr ER] 360 mg PO QPM 12/21/15 09/10/16 History Escitalopram [Lexapro] 10 mg PO QPM 06/24/16 09/10/16 History Furosemide Tab [Lasix Tab] 20 mg PO BID DIURETIC #60 tablet 06/24/16 09/10/16 Rx Mirabegron [Myrbetriq] 50 mg PO QPM 06/24/16 09/10/16 History Pramipexole Di-HCl [Pramipexole ER] 0.75 mg PO QPM 06/24/16 09/10/16 History Pantoprazole Sodium [Protonix] 40 mg PO QPM 09/05/16 09/10/16 History Promethazine HCl 25 mg PO Q4-6H PRN 09/05/16 09/10/16 History Tiotropium [place] [Spiriva 18 mcg IH BID 09/05/16 09/10/16 History Respimat] Albuterol Sulfate [Ventolin HFA] 1 puff INH Q4H PRN 09/10/16 09/10/16 History Metoprolol Succinate Xl [Toprol Xl] 25 mg PO QPM 09/10/16 09/10/16 History Allergies Allergy/AdvReac Type Severity Reaction Status Date / Time aspirin AdvReac Severe Nausea Verified 03/31/17 16:13 Exam (Pulmonay) H&P - Constitutional Vitals: Period Temp Pulse Resp BP Sys/Leyva Pulse Ox Last 24 Hr 98.2 F-98.9 F 62-118 16-65 92-219/44-181 88-100 Medical,Surgical,& Family Hx - Medical History Cardio: History of: Cardiac Dysrhythmia, CHF No history of: CAD, Hypertension, [place] Neurology: History of: Peripheral Neuropathy Respiratory: History of: COPD, Pulmonary Embolism, Pneumonia No history of: Lung Cancer (LYMPHOMA, LEUKEMIA) Genitourinary: History of: Kidney Stones Gastrointestinal: History of: GERD (Recurrent hiatal hernia on most recent CT scan of chest) Hematology: No history of: Blood Transfusion Reaction Other: History of: Miscellaneous Medical Problems (lymphoma) No history of: Anesthesia Reactions - Surgical History Cardiac Surgeries: Sugical HX of: Cardiac Catheterization (Possible coronary study 8 years ago) Neurologic Surgeries: Patient denies: Neurologic Surgery Abdominal Surgeries: Surgical HX of: Cholecystectomy, EGD, Hernia Repair Reproductive Surgeries: Surgical HX of;: Section, Gynecologic Surgery, Hysterectomy Orthopedic Surgeries: Surgical HX of;: Total Knee Replacement (bilateral) - Family History Family History: Reports;: Family Cancer (mother), Family Diabetes (grandmother) - Social History Smoking Status: Never smoker Frequency of Alcohol Use: None Type of Drug Use: None Results - Labs CBC & BMP: 09/11/16 05:20 09/11/16 05:20
--- NOTE | 2016-09-11 10:59 | XRay Report ---
XR chest 1V portable Indication: Heart failure Comparison: Chest x-ray dated September 10, 2016 Technique: Single frontal view of the chest Findings: Continued cardiomegaly and coarsened bilateral interstitial prominence which may reflect interstitial pulmonary edema. Small pleural fluid not excluded. Osseous and surrounding soft tissue structures appear grossly unchanged. IMPRESSION: No significant interval change. PROCEDURE INTERPRETED AT [facility] DEPARTMENT OF RADIOLOGY Final Report Signed by: Dr Isaak Jensen
[2016-09-11] MEDS: methylPREDNISolone SOD SUC 40 MG/1 ML VIAL IV SCH ×3 (11:16→23:41)
[2016-09-11] MEDS: FLUCONAZOLE 200 MG TABLET PO SCH (11:19)
[2016-09-11 11:45] LABS: B-Type Natriuretic Peptide 240 PG/ML (2-100)
[2016-09-11 12:05] LABS: Folate > 24.0 NG/ML (5.4-24.0); Vitamin B12 401 PG/ML (211-911)
[2016-09-11] MEDS ORDERED: DIGOXIN 0.125 MG TABLET PO SCH (13:00)
--- NOTE | 2016-09-11 13:10 | Hospitalist Progress Note ---
Assessment and Plan (1) CHF (congestive heart failure), NYHA class III Status: Acute Assessment and plan: Continue Lasix and Coreg, had good response to Lasix yesterday. Monitor her kidneys closely to avoid renal failure from overdiuresis Current Visit: Yes (2) LALY (obstructive sleep apnea) Status: Acute Assessment and plan: Dr. Mishra will reevaluate when she is more stable Current Visit: Yes (3) Atrial fibrillation with rapid ventricular response Status: Acute Assessment and plan: cont diltiazem, digoxin and coreg, cont eliquis. Off still drip Current Visit: No (4) Distal radius fracture Status: Acute Assessment and plan: Patient in cast already Current Visit: No Qualifiers: Encounter type: initial encounter (5) Hypertension Status: Chronic Assessment and plan: cont coreg and diltiazem po Current Visit: Yes (6) Morbid obesity Status: Acute Assessment and plan: counseled to lose weight Current Visit: Yes (7) UTI (urinary tract infection) Status: Acute Assessment and plan: Continue Zosyn Current Visit: Yes (8) Iron deficiency anemia Status: Acute Assessment and plan: Check ferritin Current Visit: Yes (9) CLL (chronic lymphocytic leukemia) Status: Acute Assessment and plan: Baseline white count is 17,000. Her white count today is 18.2. No overt evidence of pneumonia. Current Visit: Yes Hospitalist: Subjective Interval history: Patient actually sounds better today. I would like to check into possible [facility] for her. She has a history of CLL and Dr. Mukherjee is seen her today. Patient will be started on steroids today and get a PT evaluation. Tried her off BiPAP and she dropped down in the 80s. Exam - Constitutional Vitals: Period Temp Pulse Resp BP Sys/Leyva Pulse Ox Last 24 Hr 97.5 F-98.9 F 62-118 16-65 92-219/44-181 88-100 Exam: Heart Rate-[RRR] Lungs-[bilateral coarse rhonchi] GI-[+bs soft, NT] Ext-[no edema] Neuro [Motor 5/5], [alert and oriented times 3] psych [normal mood and affect] General [mild acute distress] Results - Labs CBC & BMP: 09/11/16 05:20 09/11/16 05:20 Lab Results: I have reviewed the past 24 hour labs Labs: Urine culture growing gram-negative rods - Diagnostic Findings Procedure: Chest x-ray: report reviewed by me (Pulmonary edema), Ultrasound: report reviewed by me (No evidence of DVT)
--- NOTE | 2016-09-11 13:13 | Sleep Medicine Progress Note ---
Assessment and Plan (1) LALY (obstructive sleep apnea) Status: Acute Assessment and plan: Patient does remain too unstable for sleep evaluation but we will follow-up her condition and any prior results. Current Visit: Yes (2) Atrial fibrillation with rapid ventricular response Status: Acute Current Visit: No Sleep Medicine Subjective Interval history: Patient does continue to have issues with respiratory distress and need for significant supplemental oxygen. She is appearing more comfortable today. Pulmonary medicine is following her. She remains too unstable to assess for sleep apnea at this point. We will follow-up on her evaluation. We will also try to find any prior sleep results that she may have had. She is certain that she had prior sleep study. Exam (Progress Note) - Constitutional Vitals: Period Temp Pulse Resp BP Sys/Leyva Pulse Ox Last 24 Hr 97.5 F-98.9 F 62-118 16-65 92-219/44-181 88-100 Exam: She is alert and responsive. She does appear more comfortable than she did yesterday. HEENT unchanged. Chest with fair air movement with wheezes bilaterally and a few scattered crackles. Cardiac exam reveals a regular rhythm without murmur or gallop. Abdomen soft nontender without palpable hepatosplenomegaly or mass. Extremities without increased edema. Neurologically, grossly intact. Results - Labs CBC & BMP: 09/11/16 05:20 09/11/16 05:20 Lab Results: I have reviewed the past 24 hour labs
[2016-09-11 15:14] LABS: ABG Base Excess 5.4 MMOL/L (-2.5-2.5); ABG HCO3 29.2 MMOL/L (20-26); ABG Oxygen Saturation 91.7 % (95-100); ABG PCO2 52.2 MM HG (35-48); ABG PH 7.387 (7.35-7.45); ABG PO2 67.2 MM HG (80-95); ABG TCO2 28.9 MMOL/L (23-27); Allen Test Positive
[2016-09-11] MEDS: FUROSEMIDE 40 MG/4 ML VIAL IV SCH (15:47)
[2016-09-11] MEDS: PRAMIPEXOLE 0.25 MG TABLET PO SCH (20:38)
[2016-09-11] MEDS: DILTIAZEM CD 240 MG CAPSULE PO SCH (20:39)
[2016-09-11] MEDS: ISOSORBIDE MONONITRATE 30 MG TABLET PO SCH (20:40)
[2016-09-11] MEDS: ESCITALOPRAM 10 MG TABLET PO SCH (20:42)
[2016-09-12] MEDS: ALBUTEROL/IPRATROPIUM 3 ML NEB RESP TX SCH ×7 (02:47→23:20)
[2016-09-12 03:30] LABS: ABG Base Excess 5.4 MMOL/L (-2.5-2.5); ABG HCO3 29.2 MMOL/L (20-26); ABG Oxygen Saturation 95.4 % (95-100); ABG PCO2 54.4 MM HG (35-48); ABG PH 7.374 (7.35-7.45); ABG PO2 81.1 MM HG (80-95); ABG TCO2 29.2 MMOL/L (23-27); Allen Test Positive; Pt O2 Delivery Device BIPAP
[2016-09-12] MEDS: methylPREDNISolone SOD SUC 40 MG/1 ML VIAL IV SCH ×4 (03:57→21:33)
[2016-09-12 06:03] LABS: Basophils % 0.1 % (0.0-0.8); Hematocrit 29.6 VOL% (35.7-47.0); Hemoglobin 8.7 GM/DL (12.0-16.0); Immature Granulocytes % 0.4 %; Immature Granulocytes Absolute 0.04 #; Lymphocytes # 1.4 10*3/uL (1.4-4.0); Lymphocytes % 13.4 % (21.3-54.2); Mean Corpuscular HGB Conc 29.4 GM/DL (32-36); Mean Corpuscular Hemoglobin 23 PG (27-34); Mean Corpuscular Volume 78.5 FL (87-102); Mean Platelet Volume 12.2 FL (9.6-12.0); Monocytes # 0.1 10*3/uL (0.11-0.8); Monocytes % 1.1 % (1.7-12.7); Neutrophils # 8.8 10*3/uL (1.4-7.4); Platelet Count 231 T/CUMM (130-400); Red Blood Count 3.77 MC/CUMM (3.8-5.5); Red Cell Distribution Width 17.2 % (9.3-17.3); White Blood Count 10.4 T/CUMM (4-12)
[2016-09-12 06:32] LABS: Calcium 8.3 MG/DL (8.5-10.1); Osmolality,Calculated 285.5 MOS/KG (273-304)
[2016-09-12 06:43] LABS: Calcium 8.2 MG/DL (8.5-10.1); Magnesium 2.1 MG/DL (1.8-2.4); Osmolality,Calculated 281.8 MOS/KG (273-304)
--- NOTE | 2016-09-12 07:46 | XRay Report ---
XR chest 1V portable Indication: SOB, CHF Comparison: Chest x-ray dated September 11, 2016 at 10:18 AM Technique: Single frontal view of the chest Findings: Continued cardiomegaly. Continued prominence of bilateral interstitial lung markings. Small bilateral pleural fluid not excluded. Osseous and surrounding soft tissue structures appear grossly unchanged. IMPRESSION: No significant interval change. PROCEDURE INTERPRETED AT [facility] DEPARTMENT OF RADIOLOGY Final Report Signed by: Dr Isaak Jensen
[2016-09-12] MEDS ORDERED: DIGOXIN 0.125 MG TABLET PO SCH (09:00)
[2016-09-12] MEDS ORDERED: LORazepam 2 MG/1 ML VIAL IV PRN (10:41)
[2016-09-12] MEDS: FUROSEMIDE 40 MG/4 ML VIAL IV SCH ×2 (10:52→17:04)
[2016-09-12] MEDS: FAMOTIDINE 20 MG/2 ML VIAL IV SCH ×2 (10:53→21:17)
[2016-09-12] MEDS: PANTOPRAZOLE 40 MG TABLET PO SCH (10:54)
[2016-09-12] MEDS: FLUCONAZOLE 200 MG TABLET PO SCH (10:54)
[2016-09-12] MEDS: CARVEDILOL 6.25 MG TABLET PO SCH ×2 (10:54→11:26)
[2016-09-12] MEDS: APIXABAN 5 MG TABLET PO SCH ×2 (10:54→21:18)
--- NOTE | 2016-09-12 11:04 | Cardiology Progress Note ---
Assessment and Plan - Time spent with patient Time spent with patient: Greater than 30 minutes (1) Acute on chronic diastolic heart failure Status: Acute Assessment and plan: That this was exacerbated by her tachycardia. She had not taken her Lasix apparently recently and probably had increased volume overload based on her clinical findings and chest x-ray. She had diuresed initially fairly well but she still has a chest x-ray that was abnormal. Some this may be chronic but I am going to give her a dose of Zaroxolyn today see how she responds that with her IV Lasix. Current Visit: Yes (2) Atrial fibrillation with rapid ventricular response Status: Acute Assessment and plan: Her ventricular spots is now stable. I think this was then extubated by her acute volume overload from not taking her Lasix and with her COPD. We will need to watch her rate response as digoxin was added. Will hold this tomorrow to we get her dig level back. If her rates remained in the 60s we may can do without this drug. Current Visit: No (3) History of COPD Status: Chronic Assessment and plan: She is having wheezing today. She has been given bronchodilator therapies. Current Visit: No (4) Morbid obesity Status: Chronic Assessment and plan: This is a chronic issue that exacerbates most of her other medical issues. Current Visit: No Cardiology - PN: Subj Interval history: Patient's been doing generally fairly well from a cardiac standpoint. Her lungs still look a little bit as if some fluid. She is having some wheezing in this particular COPD. Her blood pressures are better this morning. Her heart rates 60s 70s. We will have to watch this especially with the addition of her digoxin. We will get be cautious with her slight renal insufficiency that we do not get to help a level digoxin. Also her response to the medications may cause some bradycardia. She has no cardiac complaints of chest pain. She is chronic atrial fibrillation. With her wheezing I think we should probably switch her to a more cardioselective beta-rebecca such as metoprolol or Bystolic. Exam (Progress Note) - Constitutional Vitals: Period Temp Pulse Resp BP Sys/Leyva Pulse Ox Last 24 Hr 97.7 F-98.4 F 50-82 12-27 78-189/46-142 85-99 Exam: General appearance: Morbidly obese, no acute distress, lying flat in bed. HEENT exam: normal inspection, atraumatic Neck exam: Short neck with trachea is in midline Respiratory/lungs exam: Anterior bilaterally she has diffuse expiratory wheezing and coarse breath sounds. Cardiovascular exam: r irregular rhythm, no murmur or gallop or rub. No precordial lift. Chest wall exam: nontender GI/Abdominal exam: Obese with normal bowel sounds, soft, nontender still. Extremeties/musculoskeletal: normal inspection without edema or cyanosis. Neurological exam: alert, oriented X3, no focal deficits Psychiatric exam: normal affect, normal mood. Cognitive function is grossly normal. Skin exam: normal color, warm Result/EKG - Labs CBC & BMP: 09/12/16 05:35 09/12/16 05:35 Lab Results: I have reviewed the past 24 hour labs Labs: Laboratory Results - last 24 hr 09/11/16 09/11/16 09/11/16 05:15 11:00 11:00 WBC RBC Hgb Hct MCV MCH MCHC RDW Plt Count MPV Neut % (Auto) Lymph % (Auto) Thayer % (Auto) Eos % (Auto) Baso % (Auto) Neut # (Auto) Lymph # (Auto) Thayer # (Auto) Eos # (Auto) Baso # (Auto) Immature Gran % Nucleated RBC % Immature Gran # Nucleated RBCs # Absolute Retic 0.1 Percent Retic 2.2 H Retic Hgb Equivalent 21.7 L ABG pH ABG pCO2 ABG pO2 ABG HCO3 ABG Total CO2 ABG O2 Saturation ABG Base Excess FiO2 Sodium Potassium Chloride Carbon Dioxide Anion Gap BUN Creatinine GFR Calculation BUN/Creatinine Ratio Glucose Calculated Osmolality Calcium Magnesium Iron 20 L TIBC 401 % Saturation 5.0 L B-Natriuretic Peptide 240 H Vitamin B12 401 Folate > 24.0 H 09/11/16 09/12/16 09/12/16 15:00 03:20 05:35 WBC 10.4 D RBC 3.77 L Hgb 8.7 L Hct 29.6 L MCV 78.5 L MCH 23 L MCHC 29.4 L RDW 17.2 Plt Count 231 MPV 12.2 H Neut % (Auto) 85.0 H Lymph % (Auto) 13.4 L Thayer % (Auto) 1.1 L Eos % (Auto) 0.0 Baso % (Auto) 0.1 Neut # (Auto) 8.8 H Lymph # (Auto) 1.4 Thayer # (Auto) 0.1 L Eos # (Auto) 0.0 Baso # (Auto) 0.0 Immature Gran % 0.4 Nucleated RBC % 0.0 Immature Gran # 0.04 Nucleated RBCs # 0.00 Absolute Retic Percent Retic Retic Hgb Equivalent ABG pH 7.387 7.374 ABG pCO2 52.2 H 54.4 H ABG pO2 67.2 L 81.1 ABG HCO3 29.2 H 29.2 H ABG Total CO2 28.9 H 29.2 H ABG O2 Saturation 91.7 L 95.4 ABG Base Excess 5.4 H 5.4 H FiO2 36.00 36.00 Sodium Potassium Chloride Carbon Dioxide Anion Gap BUN Creatinine GFR Calculation BUN/Creatinine Ratio Glucose Calculated Osmolality Calcium Magnesium Iron TIBC % Saturation B-Natriuretic Peptide Vitamin B12 Folate 09/12/16 09/12/16 09/12/16 05:35 05:35 05:35 WBC RBC Hgb Hct MCV MCH MCHC RDW Plt Count MPV Neut % (Auto) Lymph % (Auto) Thayer % (Auto) Eos % (Auto) Baso % (Auto) Neut # (Auto) Lymph # (Auto) Thayer # (Auto) Eos # (Auto) Baso # (Auto) Immature Gran % Nucleated RBC % Immature Gran # Nucleated RBCs # Absolute Retic Percent Retic Retic Hgb Equivalent ABG pH ABG pCO2 ABG pO2 ABG HCO3 ABG Total CO2 ABG O2 Saturation ABG Base Excess FiO2 Sodium 139 137 Potassium 4.0 4.0 Chloride 98 98 Carbon Dioxide 29 29 Anion Gap 16.0 H 14.0 BUN 29 H 30 H Creatinine 1.40 H 1.40 H GFR Calculation 51 51 BUN/Creatinine Ratio 20.00 21.00 H Glucose 160 H 159 H Calculated Osmolality 285.5 281.8 Calcium 8.3 L 8.2 L Magnesium 2.1 Iron TIBC % Saturation B-Natriuretic Peptide 521 H Vitamin B12 Folate - Impressions Impressions: Impression her telemetry with atrial fibrillation with ventricular response in the 60s.
[2016-09-12] MEDS: PIPERACILLIN/TAZOBACTAM 3,375 MG in SODIUM CHLORIDE 0.9% 100 ML IV SCH ×2 (11:27→17:03)
--- NOTE | 2016-09-12 11:31 | Sleep Medicine Progress Note ---
Assessment and Plan (1) LALY (obstructive sleep apnea) Status: Acute Assessment and plan: We will switch her to auto titration BiPAP and follow-up response. I did discuss with Dr. Cunha. Current Visit: Yes (2) Atrial fibrillation with rapid ventricular response Status: Acute Current Visit: No Sleep Medicine Subjective Interval history: This patient did have previous sleep study done and had moderate obstructive sleep apnea with an AHI of 18. However, she had severe O2 desaturation with her study into the 60s. She certainly will need reevaluation once she is improved from her current condition. She does seem to be getting better. We will switch her to an auto titration BiPAP device and see how she does with that. I did discuss this with Dr. Miranda. Exam (Progress Note) - Constitutional Vitals: Period Temp Pulse Resp BP Sys/Leyva Pulse Ox Last 24 Hr 97.7 F-98.4 F 50-82 12-27 78-189/46-142 87-99 Exam: Patient is alert and appears more comfortable. She seems to be breathing easier. Chest with fair air movement with less wheeze and rhonchi. Cardiac exam reveals a regular rhythm without murmur or gallop. Abdomen obese nontender extremities without increased edema. Results - Labs CBC & BMP: 09/12/16 05:35 09/12/16 05:35 Lab Results: I have reviewed the past 24 hour labs
[2016-09-12] MEDS: metOLazone 5 MG TABLET PO SCH (11:36)
[2016-09-12] MEDS: FERROUS SULFATE 325 MG TABLET PO SCH ×2 (11:36→21:18)
--- NOTE | 2016-09-12 11:47 | Pulmonology Progress Note ---
Pulmonary - PN: Subj Interval history: Venu Reyes, ANP-BC, GNP-BC, acting as scribe for Dr. Rachid Cunha Ms. Blair is a 66-year-old white female who we saw in initial pulmonary consultation on 09/12/2016. At that time, our impressions were: 1. Acute congestive heart failure. Note failure to take Lasix. 2. Chronic atrial fib. Probable heart disease, note the patient takes nitrates. Followed by Dr. Demar Greer 3. Chronic anticoagulation 4. Severe hypoxemia. Probably related to acute congestive heart failure. Past history of smoking in past history of pulmonary emboli are probably contributory. 5. Probable obstructive sleep apnea 6. Follicular lymphoma. Followed by Dr. Edgardo Mukherjee 7. Anemia. Abnormal red blood cell indices. Look for B12 deficiency, folic acid deficiency, iron deficiency. 8. See past history 09/12/2016. Patient's case has been discussed with Dr. Mishra. She did have a sleep study done in the past and Dr. Mishra was able to review this. He is placing her on an auto BiPap. She had severe desaturations during her previous study. Dr. Funes has consulted LTAC. The patient is agreeable to going to [facility]. Her CXR today shows slight CHF, but overall is improved. She has been found to have iron deficiency. We have started Ferrous sulfate 325mg PO BID. We will check stools for blood x 3. Due to CO2 retention, the patient was started on Diamox yesterday. ABGs this morning on an FIO2 of 36% showed a pH of 7.374, PCO2 54.4, PO2 81.1, bicarb 29.2, oxygen saturation 95.4%. Medications have been reviewed. Ferrous sulfate started today. Labs been reviewed. White count is 10,400 with 85.0% segs; H&H 8.7/29.6 with decreased indices and top normal red blood cell distribution with; platelet count 231,000; creatinine 1.40, BUN 30, electrolytes are normal; BNP 521; iron studies showed an iron of 20, total pneumatic capacity 401, and iron saturation 5.0% Exam (Progress Note) - Constitutional Vitals: Period Temp Pulse Resp BP Sys/Leyva Pulse Ox Last 24 Hr 97.7 F-98.4 F 50-82 12-27 78-189/46-142 87-99 Exam: Chest with decreased respiratory excursion but improved since yesterday; wheeze free Heart irregular Abdomen is nontender nondistended; bowel sounds are positive 4 Extremities with nothing to suggest acute deep venous thrombophlebitis Psychiatric oriented 3 Neurologic long-term motor function is intact Plan: Stools for blood 3. Start ferrous sulfate 325 mg twice daily. Repeat free T4 as initial free T4 was elevated. Daily chest x-ray, BMP, and BNP. Agree with plans for LTAC. See orders. Results - Labs CBC & BMP: 09/12/16 05:35 09/12/16 05:35
--- NOTE | 2016-09-12 13:42 | Hospitalist Progress Note ---
Assessment and Plan (1) Acute respiratory failure Status: Acute Assessment and plan: multifactorial, due to chf, copd, LALY, OHS, hx of PE, cont zosyn, steroids and duonebs Current Visit: Yes (2) Acute on chronic diastolic heart failure Status: Acute Assessment and plan: cont diuresis with lasix, zaroxlyn and acetazolamide Current Visit: Yes (3) LALY (obstructive sleep apnea) Status: Acute Assessment and plan: Dr. Mishra following patient Current Visit: Yes (4) Atrial fibrillation with rapid ventricular response Status: Acute Assessment and plan: developed bradycardia, hold dig but cont dilt and metoprolol Current Visit: No (5) Distal radius fracture Status: Acute Assessment and plan: Patient in cast already Current Visit: No Qualifiers: Encounter type: initial encounter (6) Hypertension Status: Chronic Assessment and plan: cont metoprolol and diltiazem Current Visit: Yes (7) Morbid obesity Status: Acute Assessment and plan: counseled to lose weight Current Visit: Yes (8) UTI (urinary tract infection) Status: Acute Assessment and plan: growing e. coli in urine sensitive to rocephin but still need zosyn for lungs for now Current Visit: Yes (9) Iron deficiency anemia Status: Acute Assessment and plan: ferritin 38, calculate iron replacement Current Visit: Yes (10) CLL (chronic lymphocytic leukemia) Status: Acute Assessment and plan: wbc down to 10.4 Current Visit: Yes Hospitalist: Subjective Interval history: Patient was able to get off the continuous BiPAP. I still want her to wear BiPAP at night. She is diuresed well. Her BNP is still over 500. Thanks to sleep medicine, pulmonary and cardiology for following her. She is looking much better today. Need PT eval but feel that she is a good candidate for [facility]. Exam - Constitutional Vitals: Period Temp Pulse Resp BP Sys/Leyva Pulse Ox Last 24 Hr 97.7 F-98.4 F 50-82 12-27 78-189/46-142 88-99 Exam: Heart Rate-[RRR] Lungs-[bilateral wheezes, moving more air today ] GI-[+bs soft, NT, obese ] Ext-[no edema, perorbital edema much better Neuro [Motor 5/5], [alert and oriented times 3] psych [normal mood and affect] General no acute distress] Results - Labs CBC & BMP: 09/12/16 05:35 09/12/16 05:35 Lab Results: I have reviewed the past 24 hour labs Labs: Blood cultures 2 negative no growth. Heart rate dropped to the 30s during the night. Will reevaluate medicines and hold dig for now. Must cont to wear bipap at night and prn. Good candidate for [facility]. - Diagnostic Findings Procedure: Chest x-ray: report reviewed by me (Bilateral pulmonary edema)
[2016-09-12] MEDS ORDERED: IRON DEXTRAN 25 MG in SYRINGE 1 EACH IV ONE (15:00)
[2016-09-12] MEDS ORDERED: IRON DEXTRAN IV ONE (16:00)
[2016-09-12] MEDS ORDERED: SODIUM CHLORIDE 0.9% IV ONE (16:00)
[2016-09-12] MEDS: PRAMIPEXOLE 0.25 MG TABLET PO SCH (21:18)
[2016-09-12] MEDS: ESCITALOPRAM 10 MG TABLET PO SCH (21:18)
[2016-09-12] MEDS: ISOSORBIDE MONONITRATE 30 MG TABLET PO SCH (21:18)
[2016-09-12] MEDS: DILTIAZEM CD 240 MG CAPSULE PO SCH (21:19)
[2016-09-13] MEDS: PIPERACILLIN/TAZOBACTAM 3,375 MG in SODIUM CHLORIDE 0.9% 100 ML IV SCH ×4 (01:31→22:51)
[2016-09-13] MEDS: ALBUTEROL/IPRATROPIUM 3 ML NEB RESP TX SCH ×6 (03:58→23:50)
[2016-09-13 04:03] LABS: Basophils % 0.1 % (0.0-0.8); Hematocrit 30.3 VOL% (35.7-47.0); Hemoglobin 9.4 GM/DL (12.0-16.0); Immature Granulocytes % 0.5 %; Immature Granulocytes Absolute 0.07 #; Lymphocytes # 2.2 10*3/uL (1.4-4.0); Mean Corpuscular Hemoglobin 23 PG (27-34); Mean Corpuscular Volume 75.6 FL (87-102); Mean Platelet Volume 11.5 FL (9.6-12.0); Monocytes # 0.3 10*3/uL (0.11-0.8); Monocytes % 2.1 % (1.7-12.7); Neutrophils # 11.4 10*3/uL (1.4-7.4); Neutrophils % 81.3 % (38.7-73.9); Platelet Count 293 T/CUMM (130-400); Red Blood Count 4.01 MC/CUMM (3.8-5.5); Red Cell Distribution Width 17.2 % (9.3-17.3)
[2016-09-13 04:30] LABS: Calcium 8.4 MG/DL (8.5-10.1); Osmolality,Calculated 287.5 MOS/KG (273-304)
[2016-09-13 04:31] LABS: Calcium 8.5 MG/DL (8.5-10.1); Magnesium 2.2 MG/DL (1.8-2.4); Osmolality,Calculated 291.3 MOS/KG (273-304); Potassium 2.9 MMOL/L (3.5-5.1)
[2016-09-13] MEDS: methylPREDNISolone SOD SUC 40 MG/1 ML VIAL IV SCH ×4 (05:55→22:51)
--- NOTE | 2016-09-13 08:47 | Cardiology Progress Note ---
Assessment and Plan (1) Acute on chronic diastolic heart failure Status: Acute Assessment and plan: This is clinically better. This is exacerbated some degree with her chronic lung disease. Obesity certainly has a marked effect on this. Current Visit: Yes (2) Atrial fibrillation with rapid ventricular response Status: Acute Assessment and plan: Her heart rates are stable at this time. I think her exacerbation is related to acute respiratory issues. Current Visit: No (3) History of COPD Status: Chronic Assessment and plan: She is still wheezing. This is being treated by pulmonary. Current Visit: No (4) Morbid obesity Status: Chronic Assessment and plan: This is a chronic issue that exacerbates most of her other medical issues. Weight loss would be great benefit but is unlikely she is going to do this. Current Visit: No Cardiology - PN: Subj Interval history: Her cardiac standpoint she is generally doing very well. She still include her chronic atrial fibrillation with controlled ventricular response. Blood pressure stable. She had an episode yesterday after Ativan becoming agitated apparently pulled off her left arm cast and pulled out her pins. She still having significant wheezing and her chest x-ray still feels some nontoxic chronic lung changes. Patient level reviewed and her potassium is diminished we will try oral potassium replacement. Consider dose of Lasix. Exam (Progress Note) - Constitutional Vitals: Period Temp Pulse Resp BP Sys/Leyva Pulse Ox Last 24 Hr 97 F-98.3 F 54-80 11-64 110-173/55-139 85-100 Exam: General appearance: Morbidly obese, no acute distress, she is sitting up at this time with nasal biprong on. HEENT exam: normal inspection, atraumatic Neck exam: Short neck with trachea is in midline Respiratory/lungs exam: Posteriorly and bilaterally she has diffuse expiratory wheezing and coarse breath sounds. Cardiovascular exam: irregular rhythm, no murmur or gallop or rub. No precordial lift. Chest wall exam: nontender GI/Abdominal exam: Obese with normal bowel sounds, soft, nontender still. Extremeties/musculoskeletal: normal inspection without edema or cyanosis. Neurological exam: alert, oriented X3, no focal deficits Psychiatric exam: normal affect, normal mood. Cognitive function is grossly normal. Skin exam: normal color, warm Result/EKG - Labs CBC & BMP: 09/13/16 03:49 09/13/16 03:49 Lab Results: I have reviewed the past 24 hour labs (Potassium is going to be replaced.) Labs: Laboratory Results - last 24 hr 09/12/16 09/13/16 09/13/16 Unknown 03:49 03:49 WBC 14.0 H D RBC 4.01 Hgb 9.4 L Hct 30.3 L MCV 75.6 L MCH 23 L MCHC 31.0 L RDW 17.2 Plt Count 293 D MPV 11.5 Neut % (Auto) 81.3 H Lymph % (Auto) 16.0 L Worth % (Auto) 2.1 Eos % (Auto) 0.0 Baso % (Auto) 0.1 Neut # (Auto) 11.4 H Lymph # (Auto) 2.2 Worth # (Auto) 0.3 Eos # (Auto) 0.0 Baso # (Auto) 0.0 Immature Gran % 0.5 Nucleated RBC % 0.0 Immature Gran # 0.07 Nucleated RBCs # 0.00 Sodium 139 Potassium 3.0 L Chloride 95 L Carbon Dioxide 33 H Anion Gap 14.0 BUN 31 H Creatinine 1.40 H GFR Calculation 51 BUN/Creatinine Ratio 22.00 H Glucose 165 H Calculated Osmolality 287.5 Calcium 8.4 L Magnesium B-Natriuretic Peptide Free T4 1.51 H Digoxin 09/13/16 09/13/16 09/13/16 03:49 03:49 03:49 WBC RBC Hgb Hct MCV MCH MCHC RDW Plt Count MPV Neut % (Auto) Lymph % (Auto) Worth % (Auto) Eos % (Auto) Baso % (Auto) Neut # (Auto) Lymph # (Auto) Worth # (Auto) Eos # (Auto) Baso # (Auto) Immature Gran % Nucleated RBC % Immature Gran # Nucleated RBCs # Sodium 141 Potassium 2.9 L Chloride 96 L Carbon Dioxide 35 H Anion Gap 12.9 BUN 31 H Creatinine 1.40 H GFR Calculation 51 BUN/Creatinine Ratio 22.00 H Glucose 163 H Calculated Osmolality 291.3 Calcium 8.5 Magnesium 2.2 B-Natriuretic Peptide 408 H Free T4 Digoxin 0.20 L - Impressions Impressions: Atrial fibrillation controlled ventricular response.
[2016-09-13] MEDS ORDERED: METOPROLOL SUCCINATE XL 25 MG TABLET PO SCH (09:00)
--- NOTE | 2016-09-13 09:00 | XRay Report ---
XR chest 1V portable Indication: COPD, congestive heart failure Comparison: 12 Sep 2016 Findings: The heart and mediastinum are stable in size and configuration. The pulmonary vascularity is improved with decreasing interstitial lung density. No other lung infiltrates, effusions, pneumothorax or other abnormality is demonstrated. Impression: Findings suggest improving cardiac decompensation. PROCEDURE INTERPRETED AT [facility] DEPARTMENT OF RADIOLOGY Final Report Signed by: Dr. Luis Wilder
[2016-09-13] MEDS: FUROSEMIDE 40 MG/4 ML VIAL IV SCH ×2 (09:14→15:46)
[2016-09-13] MEDS: APIXABAN 5 MG TABLET PO SCH ×2 (09:16→20:19)
[2016-09-13] MEDS: PANTOPRAZOLE 40 MG TABLET PO SCH (09:16)
[2016-09-13] MEDS: FLUCONAZOLE 200 MG TABLET PO SCH (09:16)
[2016-09-13] MEDS: FERROUS SULFATE 325 MG TABLET PO SCH ×2 (09:16→20:21)
[2016-09-13] MEDS: metOLazone 5 MG TABLET PO SCH ×2 (09:16→20:20)
[2016-09-13] MEDS: POTASSIUM CHLORIDE 20 MEQ TABLET PO PRN ×4 (09:16→18:04)
[2016-09-13] MEDS: FAMOTIDINE 20 MG/2 ML VIAL IV SCH ×2 (09:16→20:19)
[2016-09-13] MEDS: LOPERAMIDE 2 MG CAPSULE PO PRN ×2 (09:16→20:19)
[2016-09-13] MEDS ORDERED: DIPHENOXYLATE/ATROPINE 2.5-0.025 MG TABLET PO PRN (09:40)
--- NOTE | 2016-09-13 09:49 | XRay Report ---
XR wrist 3V LT Indication: Hardware removal Comparison: 05 Sep 2016 Findings: Incidentally removed. The fracture alignment and positioning is similar to previous exam. No other changes. Impression: Hardware removal as described above. PROCEDURE INTERPRETED AT [facility] DEPARTMENT OF RADIOLOGY Final Report Signed by: Dr. Luis Wilder
--- NOTE | 2016-09-13 11:29 | Hospitalist Progress Note ---
Assessment and Plan (1) Acute respiratory failure Status: Acute Assessment and plan: multifactorial, due to chf, copd, LALY, OHS, hx of PE, cont zosyn, steroids and duonebs, will increase zaroxlyn as cxr still shows pulmonary edema Current Visit: Yes (2) Acute on chronic diastolic heart failure Status: Acute Assessment and plan: cont diuresis with lasix, acetazolamide, increase zaroxlyn to bid, BNP increasing, enforce fluid restriction Current Visit: Yes (3) LALY (obstructive sleep apnea) Status: Acute Assessment and plan: Dr. Mishra, must wear bipap at night Current Visit: Yes (4) Atrial fibrillation with rapid ventricular response Status: Acute Assessment and plan: HR, better today, cont dilt and metoprolol Current Visit: No (5) Distal radius fracture Status: Acute Assessment and plan: Dr. Carlton to examine Current Visit: No Qualifiers: Encounter type: initial encounter (6) Hypertension Status: Chronic Assessment and plan: cont metoprolol and diltiazem, added diovan Current Visit: Yes (7) Morbid obesity Status: Acute Assessment and plan: counseled to lose weight Current Visit: Yes (8) UTI (urinary tract infection) Status: Acute Assessment and plan: growing e. coli in urine sensitive to rocephin but still need zosyn for lungs for now Current Visit: Yes (9) Iron deficiency anemia Status: Acute Assessment and plan: ferritin 38, received iron infusion last night Current Visit: Yes (10) CLL (chronic lymphocytic leukemia) Status: Acute Assessment and plan: stable Current Visit: Yes (11) Hypokalemia Status: Acute Assessment and plan: replace and recheck Current Visit: Yes Hospitalist: Subjective Interval history: Patient sounds rather coarse today. She got really confused last night and combative according to nursing. She is alert and oriented 3 today. Still on supplemental oxygen asked the nurse to turn it way down though her sats were too high. Still thinking she is a good [facility] candidate. Up sitting on the potty chair asking for diarrhea medicine. She already has Imodium will add Lomotil for breakthrough diarrhea. Patient tore apart her cast last night. She was wrapped with an Vinnie bandage. I asked the nurse to get an x-ray and call orthopedics. Exam - Constitutional Vitals: Period Temp Pulse Resp BP Sys/Leyva Pulse Ox Last 24 Hr 97 F-98.3 F 54-80 11-64 109-173/55-139 85-100 Exam: Heart Rate-[RRR] Lungs-[bilateral coarse rhonchi GI-[+bs soft, NT, obese ] Ext-[no edema, perorbital edema resolved Neuro [Motor 5/5 but weak], [alert and oriented times 3] psych [normal mood and affect] General no acute distress] Results - Labs CBC & BMP: 09/13/16 03:49 09/13/16 03:49 Lab Results: I have reviewed the past 24 hour labs - Diagnostic Findings Procedure: Chest x-ray: report reviewed by me (chf ), X-ray: report reviewed by me (fracture still aligned )
[2016-09-13] MEDS: VALSARTAN 80 MG TABLET PO SCH (12:07)
--- NOTE | 2016-09-13 13:33 | Pulmonology Progress Note ---
Pulmonary - PN: Subj Interval history: 66-year-old female admitted for volume overload after medication noncompliance due to recent left wrist fracture. Overnight patient had an episode of acute agitation where she reportedly pulled out the pins from her recent left wrist fixation. This morning patient's agitation has improved and she is oriented x3. She admits her breathing is improved but is not yet back to her baseline. She has no new complaints. Exam (Progress Note) - Constitutional Vitals: Period Temp Pulse Resp BP Sys/Leyva Pulse Ox Last 24 Hr 97 F-98.3 F 54-80 11-64 109-158/55-98 85-100 General appearance: over weight - Head Head exam: Present: normal inspection - Eye Eye exam: Present: EOMI Pupils: Present: AISSATOU - Respiratory Respiratory exam: Present: prolonged expiratory phase, rhonchi, wheezes - Cardiovascular Cardiovascular exam: Present: regular rate and rhythm - GI/Abdominal GI/Abdominal exam: Present: normal bowel sounds, soft - Extremities Exam Extremities exam: Present: normal inspection, other (Left wrist wrapped in Vinnie bandage) - Neurological Exam Neurological exam: Present: alert, oriented X3 - Skin Skin exam: Present: warm, dry Results - Labs CBC & BMP: 09/13/16 03:49 09/13/16 03:49 - Diagnostic Findings Procedure: Chest x-ray: image reviewed by me, report reviewed by me Assessment and Plan (1) Acute on chronic diastolic heart failure Status: Acute Assessment and plan: Pulmonary status improved with diuresis based on symptoms, decreased oxygen requirement, and chest x-ray improvement. Continue diuresis while monitoring electrolytes closely. Current Visit: Yes (2) Hypokalemia Status: Acute Assessment and plan: Repletion per IM Current Visit: Yes (3) Sleep apnea Status: Chronic Assessment and plan: Continue BiPAP while sleeping Current Visit: Yes (4) History of COPD Status: Chronic Assessment and plan: Significant wheezing noted on exam today, which could be a combination of volume overload and COPD. Continue nebs and steroids. Recommend addition of Acapella with nebs to assist with sputum expectoration. Current Visit: No (5) Urinary tract infection Status: Acute Assessment and plan: E. coli from urine culture. Defer to IM Current Visit: Yes (6) Distal radius fracture Status: Acute Assessment and plan: Defer management to Ortho Current Visit: No Qualifiers: Encounter type: initial encounter
--- NOTE | 2016-09-13 13:45 | Orthopedic Consult Note ---
History of Present Illness Chief complaint: Recent left wrist surgery History of present illness: Ms. Blair is a 66 year old female Seen in the ICU. She sustained a left wrist fracture from a fall on 09/04/2016 and underwent left wrist pinning with Dr. Croft on 09/05/2016. Per the patient and family she is readmitted for shortness of breath and was given Ativan yesterday which per the patient and family cause her to pull her splint off and her pins out. She was rewrapped in a soft dressing. Patient denies any complaints of pain at this time and the patient and family are adamant that they do not want any further surgical intervention due to her overall medical condition in poor lung health. Home Medications Medication Instructions Recorded Confirmed Type Gabapentin Cap/Tab [Neurontin 600 mg PO BEDTIME 10/20/14 09/10/16 History Cap/Tab] Ipratropium/Albuterol Inhaler 1 puff INH QOTHER DAY PRN 10/20/14 09/10/16 History [Combivent Respimat Inhaler] Apixaban [Eliquis] 5 mg PO BID 12/21/15 09/10/16 History Isosorbide Mononitrate [Imdur] 15 mg PO QPM 12/21/15 09/10/16 History dilTIAZem HCl [Diltiazem 24Hr ER] 360 mg PO QPM 12/21/15 09/10/16 History Escitalopram [Lexapro] 10 mg PO QPM 06/24/16 09/10/16 History Furosemide Tab [Lasix Tab] 20 mg PO BID DIURETIC #60 tablet 06/24/16 09/10/16 Rx Mirabegron [Myrbetriq] 50 mg PO QPM 06/24/16 09/10/16 History Pramipexole Di-HCl [Pramipexole ER] 0.75 mg PO QPM 06/24/16 09/10/16 History Pantoprazole Sodium [Protonix] 40 mg PO QPM 09/05/16 09/10/16 History Promethazine HCl 25 mg PO Q4-6H PRN 09/05/16 09/10/16 History Tiotropium [place] [Spiriva 18 mcg IH BID 09/05/16 09/10/16 History Respimat] Albuterol Sulfate [Ventolin HFA] 1 puff INH Q4H PRN 09/10/16 09/10/16 History Metoprolol Succinate Xl [Toprol Xl] 25 mg PO QPM 09/10/16 09/10/16 History Allergies Allergy/AdvReac Type Severity Reaction Status Date / Time aspirin AdvReac Severe Nausea Verified 08/01/16 16:13 12 point system: reviewed and no additional remarkable complaints except as stated Medical,Surgical,& Family Hx - Medical History Cardio: History of: Cardiac Dysrhythmia, CHF No history of: CAD, Hypertension, [place] Neurology: History of: Peripheral Neuropathy Respiratory: History of: COPD, Pulmonary Embolism, Pneumonia No history of: Lung Cancer (LYMPHOMA, LEUKEMIA) Genitourinary: History of: Kidney Stones Gastrointestinal: History of: GERD (Recurrent hiatal hernia on most recent CT scan of chest) Hematology: No history of: Blood Transfusion Reaction Other: History of: Miscellaneous Medical Problems (lymphoma) No history of: Anesthesia Reactions - Surgical History Cardiac Surgeries: Sugical HX of: Cardiac Catheterization (Possible coronary study 8 years ago) Neurologic Surgeries: Patient denies: Neurologic Surgery Abdominal Surgeries: Surgical HX of: Cholecystectomy, EGD, Hernia Repair Reproductive Surgeries: Surgical HX of;: Section, Gynecologic Surgery, Hysterectomy Orthopedic Surgeries: Surgical HX of;: Total Knee Replacement (bilateral) - Family History Family History: Reports;: Family Cancer (mother), Family Diabetes (grandmother) - Social History Smoking Status: Never smoker Frequency of Alcohol Use: None Type of Drug Use: None Exam - Constitutional Vitals: Period Temp Pulse Resp BP Sys/Leyva Pulse Ox Last 24 Hr 97 F-98.3 F 54-80 11-64 109-158/55-98 85-100 General appearance: no acute distress, morbidly obese - Head Head exam: Present: normal inspection - Eye Eye exam: Present: EOMI Pupils: Present: AISSATOU - ENT ENT exam: Present: normal exam (Nasal cannula oxygen in place) - Neck Neck exam: Present: normal inspection. Absent: tenderness - Respiratory Respiratory exam: Present: other (On oxygen) - Cardiovascular Cardiovascular exam: Present: regular rate and rhythm - Expanded Left Upper Extremity General: Present: normal inspection (Soft dressing in place. Excellent active range of motion fingers. Cap refill brisk. Sensation is intact.) - Neurological Exam Neurological exam: Present: alert, oriented X3, CN II-XII intact Results - Labs CBC & BMP: 09/13/16 03:49 09/13/16 03:49 Lab Results: I have reviewed the past 24 hour labs - Diagnostic Findings Procedure: X-ray: image reviewed by me, report reviewed by me Assessment and Plan (1) Fracture of left distal radius Status: Acute Assessment and plan: Discuss her left distal radius fracture and then because she pulled the pins out that there has been some residual deformity and shortening of the left distal radius on x-ray. Discussed continued conservative treatment versus returning to the OR for closed versus open reduction and surgical fixation. Patient and family did not want surgery despite the risk of further displacement , pain, stiffness, decreased use of her left wrist. Patient and especially her daughter were concerned regarding her lungs and needed to undergo further anesthesia causing exacerbation of her lung condition. Discussed with the RN a volar fiberglass wrist splint which will be applied today due to patient stating that she did not think she could tolerate a full sugar tong type splint. Recommend repeat x-rays after splint applied Current Visit: Yes
[2016-09-13] MEDS ORDERED: RACEPINEPHRINE 0.5 ML NEB RESP TX ONE (15:44)
[2016-09-13] MEDS: BUDESONIDE 0.25 MG/2 ML NEB RESP TX SCH (19:41)
[2016-09-13] MEDS: ISOSORBIDE MONONITRATE 30 MG TABLET PO SCH (20:19)
[2016-09-13] MEDS: GABAPENTIN 600 MG TABLET PO SCH (20:19)
[2016-09-13] MEDS: PRAMIPEXOLE 0.25 MG TABLET PO SCH (20:19)
[2016-09-13] MEDS: ESCITALOPRAM 10 MG TABLET PO SCH (20:19)
[2016-09-13] MEDS: DILTIAZEM CD 240 MG CAPSULE PO SCH (20:20)
[2016-09-13] MEDS: DESITIN 4OZ/NYSTATIN 15 GRAM MIXTURE PASTE TOP SCH (20:21)
[2016-09-14] MEDS: ALBUTEROL/IPRATROPIUM 3 ML NEB RESP TX SCH ×6 (02:34→23:13)
[2016-09-14 04:26] LABS: Basophils % 0.1 % (0.0-0.8); Hematocrit 30.1 VOL% (35.7-47.0); Hemoglobin 9.3 GM/DL (12.0-16.0); Immature Granulocytes % 0.8 %; Immature Granulocytes Absolute 0.11 #; Lymphocytes # 2.6 10*3/uL (1.4-4.0); Lymphocytes % 19.6 % (21.3-54.2); Mean Corpuscular HGB Conc 30.9 GM/DL (32-36); Mean Corpuscular Hemoglobin 23 PG (27-34); Mean Corpuscular Volume 75.6 FL (87-102); Mean Platelet Volume 11.4 FL (9.6-12.0); Monocytes # 0.5 10*3/uL (0.11-0.8); Monocytes % 4.1 % (1.7-12.7); NRBC # 0.02 10*3/uL; Neutrophils # 9.9 10*3/uL (1.4-7.4); Neutrophils % 75.4 % (38.7-73.9); Platelet Count 343 T/CUMM (130-400); Red Blood Count 3.98 MC/CUMM (3.8-5.5); Red Cell Distribution Width 17.2 % (9.3-17.3); White Blood Count 13.1 T/CUMM (4-12)
[2016-09-14 04:49] LABS: Calcium 8.4 MG/DL (8.5-10.1); Magnesium 2.4 MG/DL (1.8-2.4); Osmolality,Calculated 294.3 MOS/KG (273-304); Potassium 2.7 MMOL/L (3.5-5.1)
[2016-09-14] MEDS: methylPREDNISolone SOD SUC 40 MG/1 ML VIAL IV SCH ×3 (05:21→21:27)
[2016-09-14] MEDS: POTASSIUM CHLORIDE 20 MEQ TABLET PO PRN ×3 (05:21→10:55)
[2016-09-14] MEDS: BUDESONIDE 0.25 MG/2 ML NEB RESP TX SCH ×2 (07:44→18:58)
[2016-09-14] MEDS: FAMOTIDINE 20 MG/2 ML VIAL IV SCH ×2 (08:19→21:27)
[2016-09-14] MEDS: FERROUS SULFATE 325 MG TABLET PO SCH ×2 (08:20→21:25)
[2016-09-14] MEDS: PIPERACILLIN/TAZOBACTAM 3,375 MG in SODIUM CHLORIDE 0.9% 100 ML IV SCH ×2 (08:20→15:40)
[2016-09-14] MEDS: VALSARTAN 80 MG TABLET PO SCH (08:20)
[2016-09-14] MEDS: metOLazone 5 MG TABLET PO SCH ×2 (08:21→21:26)
[2016-09-14] MEDS: PANTOPRAZOLE 40 MG TABLET PO SCH (08:21)
[2016-09-14] MEDS: APIXABAN 5 MG TABLET PO SCH ×2 (08:21→21:26)
[2016-09-14] MEDS: FUROSEMIDE 40 MG/4 ML VIAL IV SCH ×2 (08:23→15:55)
[2016-09-14] MEDS: DESITIN 4OZ/NYSTATIN 15 GRAM MIXTURE PASTE TOP SCH ×2 (08:24→21:27)
[2016-09-14] MEDS: FLUCONAZOLE 200 MG TABLET PO SCH (08:40)
--- NOTE | 2016-09-14 08:44 | Cardiology Progress Note ---
Assessment and Plan (1) Acute on chronic diastolic heart failure Status: Acute Assessment and plan: Chest x-ray still reveals what may be some pulmonary vascular congestion but this may be exacerbated by her poor inspiration. I am going to add spironolactone to her regimen to try to diurese her some more. This will be in addition to her metolazone and furosemide. Current Visit: Yes (2) Atrial fibrillation with rapid ventricular response Status: Acute Assessment and plan: Her heart rates are stable at this time. She is off her beta-rebecca at this time. Current Visit: No (3) History of COPD Status: Chronic Assessment and plan: She is still wheezing. She has had an exacerbation in this and being treated by pulmonary the primary service. Current Visit: No (4) Morbid obesity Status: Chronic Assessment and plan: This is unchanged. Current Visit: No Cardiology - PN: Subj Interval history: Patient's chronic atrial fibrillation and had been admitted with rapid ventricular response secondary to acute exacerbation of her COPD as well as volume retention. She had stopped some of her medications. Her ventricular spot remains stable at this time. Her blood pressures are stable. She does continue to have marked exacerbation of COPD with wheezing. She has diastolic dysfunction and certainly has some fluid retention in issues from this that may exacerbate her COPD. Based on her weights this is decreased but not sure the accuracy. Her beta-rebecca was stopped yesterday because of fear that it was exacerbating her wheezing. A beta-rebecca that was beta selective is low dose. Exam (Progress Note) - Constitutional Vitals: Period Temp Pulse Resp BP Sys/Leyva Pulse Ox Last 24 Hr 96.5 F-98.2 F 59-87 13-33 96-158/52-98 91-100 Exam: General appearance: Morbidly obese, no acute distress. HEENT exam: normal inspection, atraumatic Neck exam: Short neck with trachea is in midline Respiratory/lungs exam: Anteriorly/bilaterally she has diffuse expiratory wheezing with increased respiratory findings. Cardiovascular exam: irregular rhythm, no murmur or gallop or rub. No precordial lift. Chest wall exam: nontender GI/Abdominal exam: Obese with normal bowel sounds, soft, nontender still. Extremeties/musculoskeletal: normal inspection without edema or cyanosis. Her left forearm is wrapped. Neurological exam: alert, oriented X3, no focal deficits Psychiatric exam: normal affect, normal mood. Cognitive function is grossly normal. Skin exam: normal color, warm Result/EKG - Labs CBC & BMP: 09/14/16 04:00 09/14/16 04:00 Lab Results: I have reviewed the past 24 hour labs Labs: Laboratory Results - last 24 hr 09/14/16 09/14/16 09/14/16 04:00 04:00 04:00 WBC 13.1 H RBC 3.98 Hgb 9.3 L Hct 30.1 L MCV 75.6 L MCH 23 L MCHC 30.9 L RDW 17.2 Plt Count 343 MPV 11.4 Neut % (Auto) 75.4 H Lymph % (Auto) 19.6 L [place] % (Auto) 4.1 Eos % (Auto) 0.0 Baso % (Auto) 0.1 Neut # (Auto) 9.9 H Lymph # (Auto) 2.6 [place] # (Auto) 0.5 Eos # (Auto) 0.0 Baso # (Auto) 0.0 Immature Gran % 0.8 Nucleated RBC % 0.2 Immature Gran # 0.11 Nucleated RBCs # 0.02 Sodium 141 Potassium 2.7 L Chloride 94 L Carbon Dioxide 36 H Anion Gap 13.7 BUN 34 H Creatinine 1.60 H GFR Calculation 43 BUN/Creatinine Ratio 21.00 H Glucose 199 H Calculated Osmolality 294.3 Calcium 8.4 L Magnesium 2.4 B-Natriuretic Peptide 291 H - Impressions Impressions: Telemetry with atrial fibrillation with controlled ventricular response.
[2016-09-14] MEDS ORDERED: POTASSIUM CHLORIDE 20 MEQ TABLET PO SCH (09:00)
--- NOTE | 2016-09-14 09:16 | XRay Report ---
XR chest 1V portable Indication: CHF, COPD Comparison: 13 Sep 2016 Findings: The heart and mediastinum are stable in size and configuration. The pulmonary vascularity is increased with bilateral increased interstitial lung density slightly increased from previous. No other lung infiltrates, effusions, pneumothorax or other abnormality is demonstrated. Impression: Findings suggest slight increase in cardiac decompensation. PROCEDURE INTERPRETED AT [facility], [place] DEPARTMENT OF RADIOLOGY Final Report Signed by: Dr. Luis Wilder
--- NOTE | 2016-09-14 09:18 | Pulmonology Progress Note ---
Pulmonary - PN: Subj Interval history: 66-year-old female admitted for volume overload after medication noncompliance due to recent left wrist fracture. Patient had no acute events overnight and reports stability to possibly mild improvement in breathing overnight. No new complaints. No further episodes of agitation/confusion. She was seen by Ortho yesterday and after family discussion it was decided to manage the wrist fracture nonoperatively. Exam (Progress Note) - Constitutional Vitals: Period Temp Pulse Resp BP Sys/Leyva Pulse Ox Last 24 Hr 96.5 F-98.2 F 59-87 13-33 96-158/52-98 91-100 General appearance: over weight - Head Head exam: Present: normal inspection, normocephalic, atraumatic - Eye Eye exam: Present: EOMI Pupils: Present: AISSATOU - Neck Neck exam: Present: normal inspection - Respiratory Respiratory exam: Present: rales, rhonchi. Absent: accessory muscle use - Cardiovascular Cardiovascular exam: Present: irregular rhythm. Absent: systolic murmur - GI/Abdominal GI/Abdominal exam: Present: normal bowel sounds, soft. Absent: tenderness - Neurological Exam Neurological exam: Present: alert, oriented X3 - Skin Skin exam: Present: warm, dry Results - Labs CBC & BMP: 09/14/16 04:00 09/14/16 04:00 - Diagnostic Findings Procedure: Chest x-ray: image reviewed by me (Overall unchanged from yesterday) Assessment and Plan (1) Acute on chronic diastolic heart failure Status: Acute Assessment and plan: Pulmonary status improved with diuresis. Cardiology following. Current Visit: Yes (2) History of COPD Status: Chronic Assessment and plan: Wheezing improved on exam today. Will decrease steroid dosing to twice daily and continue nebs. Current Visit: No (3) Hypokalemia Status: Acute Assessment and plan: Repletion per IM Current Visit: Yes (4) Sleep apnea Status: Chronic Assessment and plan: Continue BiPAP while sleeping Current Visit: Yes (5) Urinary tract infection Status: Acute Assessment and plan: E. coli from urine culture. Defer to IM Current Visit: Yes (6) Distal radius fracture Status: Acute Assessment and plan: Nonoperative management per Ortho after discussion with family and patient yesterday. Current Visit: No Qualifiers: Encounter type: initial encounter
[2016-09-14] MEDS: SPIRONOLACTONE 25 MG TABLET PO SCH ×2 (09:38→21:26)
[2016-09-14] MEDS: POTASSIUM CHLORIDE 20 MEQ TABLET PO SCH ×2 (09:38→21:26)
--- NOTE | 2016-09-14 11:20 | Hospitalist Progress Note ---
Assessment and Plan (1) Acute respiratory failure Status: Acute Assessment and plan: multifactorial, due to chf, copd, LALY, OHS, hx of PE, cont zosyn, steroids and duonebs, zaroxyln and spironolactone. Current Visit: Yes (2) Acute on chronic diastolic heart failure Status: Acute Assessment and plan: cont diuresis with lasix, acetazolamide, zaroxlyn to bid, enforce fluid restriction, spironolactone added Current Visit: Yes (3) LALY (obstructive sleep apnea) Status: Acute Assessment and plan: Dr. Mishra, must wear bipap at night Current Visit: Yes (4) Atrial fibrillation with rapid ventricular response Status: Acute Assessment and plan: cont dilt. Had to stop metoprolol due to wheezing Current Visit: No (5) Distal radius fracture Status: Acute Assessment and plan: Family refused anymore surgery, Dr. Carlton recommends a splint Current Visit: No Qualifiers: Encounter type: initial encounter (6) Hypertension Status: Chronic Assessment and plan: controlled Current Visit: Yes (7) Morbid obesity Status: Acute Assessment and plan: counseled to lose weight Current Visit: Yes (8) UTI (urinary tract infection) Status: Acute Assessment and plan: growing e. coli in urine sensitive to rocephin but still need zosyn for lungs for now Current Visit: Yes (9) Iron deficiency anemia Status: Acute Assessment and plan: ferritin 38,s/p iron infusion Current Visit: Yes (10) CLL (chronic lymphocytic leukemia) Status: Acute Assessment and plan: stable Current Visit: Yes (11) Hypokalemia Status: Acute Assessment and plan: increase replace ment and recheck Current Visit: Yes Hospitalist: Subjective Interval history: Still wheezing quite a bit. Mom might be a little bit better today. She will have to remain off her beta-rebecca however. Already informed Dr. Melendez. Continue to keep in the ICU as she is slow to improve her respiratory failure. I still think she needs to go to [facility] for rehab and from further pulmonary care Exam - Constitutional Vitals: Period Temp Pulse Resp BP Sys/Leyva Pulse Ox Last 24 Hr 96.5 F-98.2 F 59-87 13-33 96-154/52-98 91-100 Exam: Heart Rate-[RRR] Lungs-[bilateral wheezing slightly better than yesterday GI-[+bs soft, NT, obese ] Ext-[no edema Neuro [Motor 5/5 but weak], [alert and oriented times 3] psych [normal mood and agitated affect] General mild acute distress] Results - Labs CBC & BMP: 09/14/16 04:00 09/14/16 04:00 Lab Results: I have reviewed the past 24 hour labs - Diagnostic Findings Procedure: Chest x-ray: report reviewed by me (worsening chf )
[2016-09-14] MEDS ORDERED: POTASSIUM CHLORIDE 20 MEQ TABLET PO ONE (12:00)
[2016-09-14] MEDS: PRAMIPEXOLE 0.25 MG TABLET PO SCH (21:25)
[2016-09-14] MEDS: GABAPENTIN 600 MG TABLET PO SCH (21:25)
[2016-09-14] MEDS: LOPERAMIDE 2 MG CAPSULE PO PRN (21:26)
[2016-09-14] MEDS: ESCITALOPRAM 10 MG TABLET PO SCH (21:26)
[2016-09-14] MEDS: DILTIAZEM CD 240 MG CAPSULE PO SCH (21:26)
[2016-09-14] MEDS: ISOSORBIDE MONONITRATE 30 MG TABLET PO SCH (21:26)
[2016-09-15] MEDS: PIPERACILLIN/TAZOBACTAM 3,375 MG in SODIUM CHLORIDE 0.9% 100 ML IV SCH ×2 (00:05→09:41)
[2016-09-15] MEDS: ALBUTEROL/IPRATROPIUM 3 ML NEB RESP TX SCH ×4 (02:49→16:02)
[2016-09-15 04:52] LABS: Basophils % 0.1 % (0.0-0.8); Hematocrit 35.4 VOL% (35.7-47.0); Immature Granulocytes % 0.8 %; Immature Granulocytes Absolute 0.14 #; Lymphocytes # 4.7 10*3/uL (1.4-4.0); Lymphocytes % 26.2 % (21.3-54.2); Mean Corpuscular HGB Conc 31.1 GM/DL (32-36); Mean Corpuscular Hemoglobin 23 PG (27-34); Mean Corpuscular Volume 75.3 FL (87-102); Mean Platelet Volume 11.8 FL (9.6-12.0); Monocytes # 0.7 10*3/uL (0.11-0.8); Neutrophils # 12.5 10*3/uL (1.4-7.4); Neutrophils % 68.9 % (38.7-73.9); Platelet Count 433 T/CUMM (130-400); Red Cell Distribution Width 17.5 % (9.3-17.3); White Blood Count 18.1 T/CUMM (4-12)
[2016-09-15 05:30] LABS: Magnesium 2.7 MG/DL (1.8-2.4); Osmolality,Calculated 291.5 MOS/KG (273-304); Potassium 2.9 MMOL/L (3.5-5.1)
[2016-09-15] MEDS: BUDESONIDE 0.25 MG/2 ML NEB RESP TX SCH (07:40)
--- NOTE | 2016-09-15 08:37 | XRay Report ---
Portable chest Date: 09/15/2016 Clinical history: COPD, CHF Comparison: 09/14/2016 Technique: Portable AP sitting chest Findings: Stable cardiomegaly. Calcified granulomata/nodes with residual atelectasis and scarring. Minimally improved CHF. Stable mediastinum and osseous structures. Impression: Minimally improved CHF. Otherwise the chest is stable in appearance. PROCEDURE INTERPRETED AT [facility] DEPARTMENT OF RADIOLOGY Final Report Signed by: Dr. Teresa Thompson
[2016-09-15 09:35] LABS: ABG Base Excess 13.3 MMOL/L (-2.5-2.5); ABG HCO3 37.1 MMOL/L (20-26); ABG Oxygen Saturation 96.9 % (95-100); ABG PCO2 50.4 MM HG (35-48); ABG PH 7.493 (7.35-7.45); ABG PO2 78.9 MM HG (80-95); ABG TCO2 34.8 MMOL/L (23-27)
[2016-09-15] MEDS: FERROUS SULFATE 325 MG TABLET PO SCH (09:42)
[2016-09-15] MEDS: APIXABAN 5 MG TABLET PO SCH (09:42)
[2016-09-15] MEDS: VALSARTAN 80 MG TABLET PO SCH (09:43)
[2016-09-15] MEDS: metOLazone 5 MG TABLET PO SCH (09:43)
[2016-09-15] MEDS: FLUCONAZOLE 200 MG TABLET PO SCH (09:43)
[2016-09-15] MEDS: POTASSIUM CHLORIDE 20 MEQ TABLET PO SCH (09:43)
[2016-09-15] MEDS: SPIRONOLACTONE 25 MG TABLET PO SCH (09:43)
[2016-09-15] MEDS: PANTOPRAZOLE 40 MG TABLET PO SCH (09:43)
--- NOTE | 2016-09-15 09:45 | Cardiology Progress Note ---
<Kamla Ndiaye E - Last Filed: 09/15/16 09:36> Assessment and Plan - Time spent with patient Time spent with patient: Greater than 30 minutes (1) Acute diastolic CHF (congestive heart failure), NYHA class 4 Status: Acute Assessment and plan: SEE PLAN OF CARE LISTED BELOW Current Visit: Yes (2) SOB (shortness of breath) Status: Chronic Assessment and plan: SEE PLAN OF CARE LISTED BELOW Current Visit: Yes (3) Sleep apnea Status: Chronic Assessment and plan: SEE PLAN OF CARE LISTED BELOW Current Visit: Yes (4) History of COPD Status: Chronic Assessment and plan: SEE PLAN OF CARE LISTED BELOW Current Visit: No (5) Lymphoma Status: Chronic Current Visit: No (6) Morbid obesity Status: Chronic Assessment and plan: SEE PLAN OF CARE LISTED BELOW Current Visit: No (7) Atrial fibrillation with RVR Status: Chronic Assessment and plan: SEE PLAN OF CARE LISTED BELOW Current Visit: No (8) Urinary tract infection Status: Acute Assessment and plan: SEE PLAN OF CARE LISTED BELOW Current Visit: Yes (9) Hypertension Status: Chronic Assessment and plan: SEE PLAN OF CARE LISTED BELOW Current Visit: Yes Cardiology - PN: Subj Interval history: RECEPTIONIST DOCTOR'S OFFICE: DR. GREER SUMMARY: Ms. Blair, has history of: chronic atrial fibrillation (takes Eliquis for stroke prevention), history of PE approximately 5 years ago, chronic lymphocytic leukemia, (followed by Dr. Mukherjee), recent distal radius fracture requiring closed reduction with percutaneous pinning September 05, [address] Lang Jr. She was admitted September 10, 2016 with worsening shortness of breath 3 days. She was found to be in atrial fibrillation with rapid ventricular response. She has been diagnosed with hypoxia related to acute CHF, COPD, possible sleep apnea. Diagnosed with UTI as well. Patient had stopped her Lasix prior to admission thinking she was told to do so. She has required IV Cardizem and has now been weaned off. She continues to be treated for COPD exacerbation. History of CLL followed by Dr. Mukherjee, at this time not requiring treatment. Dr. Mishra has seen patient and has arranged for outpatient sleep study when her multiple comorbidities have improved. SEPTEMBER 15, 2016: Over the weekend, patient has slowly improved. Her heart rates have been stable off IV Cardizem. She has been maintained on oral diltiazem. She has diuresed 9 kg since admission. I will decrease her diuretics as a creatinine now is beginning to rise with her significant diuresis. She continues to be treated for her COPD exacerbation. She is wearing oxygen via nasal cannula and is off her BiPAP device. W ASSESSMENT/PLAN: 1. ACUTE CHF - secondary to diastolic dysfunction, NYHA Class IIII. She has diuresed well. Will adjust down her diuretics. Daily weights, strict I&O. 2. CHRONIC ATRIAL FIBRILLATION NOW WITH RVR - takes Eliquis for stroke prevention. Will continue at this time. Adjusting diuretics. No longer requiring digoxin. 3. HYPERTENSION - well controlled 4. CHRONIC LYMPHOCYTIC LEUKEMIA - Dr. Mukherjee following. 5. MORBID OBESITY - dietary counseling prior to discharge 6. SUSPECTED SLEEP APNEA - Dr. Mishra will schedule outpatient sleep study when she has improved. 7. UTI - currently being treated 8. HISTORY OF COPD - continue pulmonary toilet. 9. RECENT LEFT RADIAL FRACTURE S/P PINNING - continue current plan of care 10. HISTORY OF PTE -patient has a history of PTE over 5 years ago. At one time , she was taking Coumadin but it was difficult to control INR and she was switched to Eliquis. She tells me she has continued to take this twice daily without fail. It would be unlikely that she would have developed PTE on this regimen. 11. SOB - multifactorial to include acute CHF, COPD, suspected sleep apnea, morbid obesity. Per patient's report her last CT of chest revealed increase in size of multiple lymph nodes in her chest and this could be contributing to her worsening shortness of breath. CT chest may be considered when she is no longer orthopneic. 12. ANEMIA - continue to monitor closely. 13. ACUTE RENAL INSUFFICIENCY - Stage III. Suspect may be related to over diuresis. Will adjust meds. Exam (Progress Note) - Constitutional Vitals: Period Temp Pulse Resp BP Sys/Leyva Pulse Ox Last 24 Hr 97.5 F-99.3 F 72-97 13-22 105-168/52-98 88-100 Exam: General: [Appears well with no apparent distress.] [Pleasant and cooperative. ] [Appears comfortable.] HEENT: [PERRL, normocephalic, atraumatic. Mucous membranes moist. No jaundice noted. Conjunctiva moist and clear, sclerae anicteric] Neck: Difficult to assess for JVD due to habitus. No carotid bruits appreciated. Cardiac: [Irregularly irregular rhythm, controlled rate.] [No murmur rub or gallop.] Lungs: [Mild inspiratory crackles noted posteriorly or in the bases. No end expiratory wheezes noted. Requiring oxygen via facemask. Tachypnea has improved Abdomen: Soft, bowel sounds normoactive. Nontender and nondistended. No abdominal bruit or thrill noted. No masses noted. Pablo catheter intact draining clear yellow urine. Musculoskeletal: No fluid collection. Decreased range of motion is noted. Extremities: No clubbing, cyanosis noted. [ No edema noted.] Upper extremity pulses 2+. Lower extremity pulses 2+. Capillary refill less than 3 seconds. Skin: No unusual lesions or rashes. No skin breakdown appreciated. Neuro: Awake, alert and oriented 3. Moves all extremities well without hemiparesis or paralysis. No essential tremor is appreciated. Result/EKG - Labs CBC & BMP: 09/15/16 03:41 09/15/16 03:41 Lab Results: I have reviewed the past 24 hour labs Labs: Laboratory Results - last 24 hr 09/15/16 09/15/16 09/15/16 03:41 03:41 03:41 WBC 18.1 H D RBC 4.70 Hgb 11.0 L Hct 35.4 L MCV 75.3 L MCH 23 L MCHC 31.1 L RDW 17.5 H Plt Count 433 H D MPV 11.8 Neut % (Auto) 68.9 Lymph % (Auto) 26.2 [place] % (Auto) 4.0 Eos % (Auto) 0.0 Baso % (Auto) 0.1 Neut # (Auto) 12.5 H Lymph # (Auto) 4.7 H [place] # (Auto) 0.7 Eos # (Auto) 0.0 Baso # (Auto) 0.0 Immature Gran % 0.8 Nucleated RBC % 0.0 Immature Gran # 0.14 Nucleated RBCs # 0.00 ABG pH ABG pCO2 ABG pO2 ABG HCO3 ABG Total CO2 ABG O2 Saturation ABG Base Excess Sodium 139 Potassium 2.9 L Chloride 85 L Carbon Dioxide 38 H Anion Gap 18.9 H BUN 35 H Creatinine 1.90 H GFR Calculation 35 BUN/Creatinine Ratio 18.00 Glucose 218 H Calculated Osmolality 291.5 Calcium 9.0 Magnesium 2.7 H B-Natriuretic Peptide 183 H 09/15/16 09:25 WBC RBC Hgb Hct MCV MCH MCHC RDW Plt Count MPV Neut % (Auto) Lymph % (Auto) [place] % (Auto) Eos % (Auto) Baso % (Auto) Neut # (Auto) Lymph # (Auto) [place] # (Auto) Eos # (Auto) Baso # (Auto) Immature Gran % Nucleated RBC % Immature Gran # Nucleated RBCs # ABG pH 7.493 H ABG pCO2 50.4 H ABG pO2 78.9 L ABG HCO3 37.1 H ABG Total CO2 34.8 H ABG O2 Saturation 96.9 ABG Base Excess 13.3 H Sodium Potassium Chloride Carbon Dioxide Anion Gap BUN Creatinine GFR Calculation BUN/Creatinine Ratio Glucose Calculated Osmolality Calcium Magnesium B-Natriuretic Peptide - EKG EKG results: interpreted by md EKG shows: atrial fibrillation <Mitch Greer - Last Filed: 09/15/16 11:27> Exam (Progress Note) - Constitutional Vitals: Period Temp Pulse Resp BP Sys/Leyva Pulse Ox Last 24 Hr 97.5 F-99.3 F 72-97 13-22 105-168/52-98 88-100 Result/EKG - Labs CBC & BMP: 09/15/16 03:41 09/15/16 03:41 Labs: Laboratory Results - last 24 hr 09/15/16 09/15/16 09/15/16 03:41 03:41 03:41 WBC 18.1 H D RBC 4.70 Hgb 11.0 L Hct 35.4 L MCV 75.3 L MCH 23 L MCHC 31.1 L RDW 17.5 H Plt Count 433 H D MPV 11.8 Neut % (Auto) 68.9 Lymph % (Auto) 26.2 [place] % (Auto) 4.0 Eos % (Auto) 0.0 Baso % (Auto) 0.1 Neut # (Auto) 12.5 H Lymph # (Auto) 4.7 H [place] # (Auto) 0.7 Eos # (Auto) 0.0 Baso # (Auto) 0.0 Immature Gran % 0.8 Nucleated RBC % 0.0 Immature Gran # 0.14 Nucleated RBCs # 0.00 ABG pH ABG pCO2 ABG pO2 ABG HCO3 ABG Total CO2 ABG O2 Saturation ABG Base Excess Sodium 139 Potassium 2.9 L Chloride 85 L Carbon Dioxide 38 H Anion Gap 18.9 H BUN 35 H Creatinine 1.90 H GFR Calculation 35 BUN/Creatinine Ratio 18.00 Glucose 218 H Calculated Osmolality 291.5 Calcium 9.0 Magnesium 2.7 H B-Natriuretic Peptide 183 H 09/15/16 09/15/16 09:05 09:25 WBC RBC Hgb Hct MCV MCH MCHC RDW Plt Count MPV Neut % (Auto) Lymph % (Auto) [place] % (Auto) Eos % (Auto) Baso % (Auto) Neut # (Auto) Lymph # (Auto) [place] # (Auto) Eos # (Auto) Baso # (Auto) Immature Gran % Nucleated RBC % Immature Gran # Nucleated RBCs # ABG pH 7.493 H ABG pCO2 50.4 H ABG pO2 78.9 L ABG HCO3 37.1 H ABG Total CO2 34.8 H ABG O2 Saturation 96.9 ABG Base Excess 13.3 H Sodium Potassium Chloride Carbon Dioxide Anion Gap BUN Creatinine GFR Calculation BUN/Creatinine Ratio Glucose Calculated Osmolality Calcium Magnesium B-Natriuretic Peptide 135 H
[2016-09-15] MEDS: FUROSEMIDE 40 MG/4 ML VIAL IV SCH (09:47)
[2016-09-15] MEDS: methylPREDNISolone SOD SUC 40 MG/1 ML VIAL IV SCH (09:54)
[2016-09-15] MEDS: FAMOTIDINE 20 MG/2 ML VIAL IV SCH (09:58)
[2016-09-15] MEDS: DESITIN 4OZ/NYSTATIN 15 GRAM MIXTURE PASTE TOP SCH (10:02)
[2016-09-15] MEDS ORDERED: POTASSIUM CHLORIDE 20 MEQ TABLET PO PRN (11:11)
--- NOTE | 2016-09-15 11:12 | Pulmonology Progress Note ---
Pulmonary - PN: Subj Interval history: Venu Reyes, ANP-BC, GNP-BC, acting as scribe for Dr. Rachid Cunha Ms. Blair is a 66-year-old white female who we saw in initial pulmonary consultation on 09/12/2016. At that time, our impressions were: 1. Acute congestive heart failure. Note failure to take Lasix. 2. Chronic atrial fib. Probable heart disease, note the patient takes nitrates. Followed by Dr. Demar Greer 3. Chronic anticoagulation 4. Severe hypoxemia. Probably related to acute congestive heart failure. Past history of smoking in past history of pulmonary emboli are probably contributory. 5. Probable obstructive sleep apnea 6. Follicular lymphoma. Followed by Dr. Edgardo Mukherjee 7. Anemia. Abnormal red blood cell indices. Look for B12 deficiency, folic acid deficiency, iron deficiency. 8. See past history 09/12/2016. Patient's case has been discussed with Dr. Mishra. She did have a sleep study done in the past and Dr. Mishra was able to review this. He is placing her on an auto BiPap. She had severe desaturations during her previous study. Dr. Funes has consulted LTAC. The patient is agreeable to going to [facility]. Her CXR today shows slight CHF, but overall is improved. She has been found to have iron deficiency. We have started Ferrous sulfate 325mg PO BID. We will check stools for blood x 3. Due to CO2 retention, the patient was started on Diamox yesterday. ABGs this morning on an FIO2 of 36% showed a pH of 7.374, PCO2 54.4, PO2 81.1, bicarb 29.2, oxygen saturation 95.4%. 09/15/2016. The patient was seen today along with her daughter. She is doing fairly well from a pulmonary standpoint. On chest exam she has some wheezing but states she is breathing well. She apparently has been accepted to [facility] today. We discussed this with the patient and her daughter and they are agreeable. We have again stressed the importance of medication and medical compliance. Medications have been reviewed. We made no changes today. Labs been reviewed. White count is 18,100 with 68.9% segs; H&H 11.0/35.4; platelet count 433,000; creatinine 1.90, BUN 35, sodium 139, potassium 2.9, magnesium 2.7 ABGs this morning on an FiO2 of 28% showed a pH of 7.493, PCO2 50.4, PO2 78.9, bicarb 37.1, and oxygen saturation 96.9%. Note, the patient continues on Diamox. Exam (Progress Note) - Constitutional Vitals: Period Temp Pulse Resp BP Sys/Leyva Pulse Ox Last 24 Hr 97.5 F-99.3 F 72-97 13-22 105-168/52-98 88-100 Exam: Chest... See above Heart irregular Abdomen is nontender nondistended; bowel sounds are positive 4 Extremities with nothing to suggest acute deep venous thrombophlebitis Psychiatric oriented 3 Neurologic long-term motor function is intact Plan: Continue Diamox and other pulmonary medications. Potassium replacement protocol. Note, the patient is on spironolactone. Agree with placement at [facility]. If she is transferred to [facility], her pulmonary care will be assumed by either Dr. Lord or Dr. Salas. We will continue to follow patient while she remains at [facility]. Results - Labs CBC & BMP: 09/15/16 03:41 09/15/16 03:41
--- NOTE | 2016-09-15 12:04 | Discharge Summary ---
Hospital Course - Hospital Course Hospital Course: Mrs Blair presented with acute on chronic respiratory failure from CHF, COPD , LALY, OHS. She was treated with IV steroids and antibiotics, IV diuresis. Cardiology, oncology, ortho, sleep medicine, and pulmonary were consulted. She has an E coli UTI which is covered by the Zosyn. She has a distal radius fracture. She has CLL. She will have an outpatient sleep study after discharge. Today she will transfer to LTAC to continue treatment of her heart failure and COPD exacerbations, and to begin PT and OT. She will also complete treatment with IV antibiotics. - Time spent with patient Time with patient DS: Greater than 30 minutes (38 minutes in chart review, exam , coordination of care with Dr Cunha, discharge planning, medicine recondciliation, documentation) Diagnosis - Discharge Diagnosis (1) Atrial fibrillation with RVR Status: Resolved (2) Hypertension Status: Chronic (3) Morbid obesity Status: Chronic (4) Sleep apnea Status: Chronic (5) UTI (urinary tract infection) Status: Acute (6) Iron deficiency anemia Status: Acute (7) CLL (chronic lymphocytic leukemia) Status: Chronic (8) Acute on chronic diastolic heart failure Status: Acute (9) Acute respiratory failure Status: Acute (10) Hypokalemia Status: Acute (11) Fracture of left distal radius Status: Acute Discharge Plan - Discharge Data Disposition: Disch/Xfer to [facility] Discharge Diet: diabetic diet, heart healthy, low salt diet Activity: as per physical therapy, wear oxygen at all times, other (BIPAP at night) - Discharge Medications New Albuterol Neb [Proventil Neb] 2.5 mg RESP TX RT Q1H PRN #0 PRN Reason: Shortness Of Breath/Wheezing Albuterol/Ipratropium Neb [Duoneb] 3 ml RESP TX RT Q4H Diltiazem Cd Cap [Cardizem CD] 240 mg PO BEDTIME capsule Famotidine Inj [Pepcid Inj] 20 mg IV Q12H vial Fluconazole Tab [Diflucan Tab] 200 mg PO DAILY tablet Furosemide Inj [Lasix Inj] 40 mg IV BID DIURETIC vial Piperacillin/Tazobactam [Zosyn] 3,375 mg IV Q8H vial Spironolactone [Aldactone] 25 mg PO BID tablet acetaZOLAMIDE INJ [Diamox Inj] 250 mg IV DAILY vial methylPREDNISolone SOD SUC INJ [SoluMEDROL] 80 mg IV Q12H vial Acetaminophen Tab [Tylenol Tab] 650 mg PO Q4H PRN #0 tablet PRN Reason: Fever, Headache, Mild Pain Ferrous Sulfate Tab [Feosol Original Tab] 325 mg PO BID tablet Valsartan [Diovan] 40 mg PO DAILY tablet Continue Gabapentin Cap/Tab [Neurontin Cap/Tab] 600 mg PO BEDTIME Isosorbide Mononitrate [Imdur] 15 mg PO QPM Apixaban [Eliquis] 5 mg PO BID Mirabegron [Myrbetriq] 50 mg PO QPM Pramipexole Di-HCl [Pramipexole ER] 0.75 mg PO QPM Pantoprazole Sodium [Protonix] 40 mg PO QPM Escitalopram [Lexapro] 10 mg PO QPM Discontinued Ipratropium/Albuterol Inhaler [Combivent Respimat Inhaler] 1 puff INH QOTHER DAY PRN PRN Reason: Shortness Of Breath dilTIAZem HCl [Diltiazem 24Hr ER] 360 mg PO QPM Tiotropium [place] [Spiriva Respimat] 18 mcg IH BID Furosemide Tab [Lasix Tab] 20 mg PO BID DIURETIC #60 tablet Promethazine HCl 25 mg PO Q4-6H PRN PRN Reason: Nausea Metoprolol Succinate Xl [Toprol Xl] 25 mg PO QPM Albuterol Sulfate [Ventolin HFA] 1 puff INH Q4H PRN PRN Reason: Shortness Of Breath/Wheezing - Follow Up or Referral - Forms/Instructions Exam - Constitutional Vitals: Period Temp Pulse Resp BP Sys/Leyva Pulse Ox Last 24 Hr 97.5 F-99.3 F 72-97 13-22 105-168/52-98 88-100 General appearance: no acute distress, morbidly obese - Head Head exam: Present: normocephalic, atraumatic - Eye Eye exam: Present: EOMI. Absent: scleral icterus - Respiratory Respiratory exam: Present: wheezes (bilateral) - Cardiovascular Cardiovascular exam: Present: irregular rhythm - GI/Abdominal GI/Abdominal exam: Present: normal bowel sounds, soft. Absent: tenderness - Extremities Exam Extremities exam: Absent: edema - Neurological Exam Neurological exam: Present: alert, oriented X3 - Skin Skin exam: Present: warm, dry Discharge Results Procedures and tests throughout hospitalization: Pending Orders 09/13/16 06:15 Occult Blood, Stool Routine 09/14/16 10:00 Sputum Culture and Gram Stain Routine 09/15/16 05:15 MRSA Surveillence, Inf Control Routine 09/16/16 04:00 Basic Metabolic Panel w/Mg IN AM CBC [Comp Blood Count Auto Diff] IN AM 09/17/16 04:00 Basic Metabolic Panel w/Mg IN AM Labs on day of discharge: Labs from last 24 hours 09/15/16 09/15/16 09/15/16 09:25 09:05 03:41 WBC RBC Hgb Hct MCV MCH MCHC RDW Plt Count MPV Neut % (Auto) Lymph % (Auto) [place] % (Auto) Eos % (Auto) Baso % (Auto) Neut # (Auto) Lymph # (Auto) [place] # (Auto) Eos # (Auto) Baso # (Auto) Immature Gran % Nucleated RBC % Immature Gran # Nucleated RBCs # ABG pH 7.493 H ABG pCO2 50.4 H ABG pO2 78.9 L ABG HCO3 37.1 H ABG Total CO2 34.8 H ABG O2 Saturation 96.9 ABG Base Excess 13.3 H Sodium 139 Potassium 2.9 L Chloride 85 L Carbon Dioxide 38 H Anion Gap 18.9 H BUN 35 H Creatinine 1.90 H GFR Calculation 35 BUN/Creatinine Ratio 18.00 Glucose 218 H Calculated Osmolality 291.5 Calcium 9.0 Magnesium 2.7 H B-Natriuretic Peptide 135 H 09/15/16 09/15/16 03:41 03:41 WBC 18.1 H D RBC 4.70 Hgb 11.0 L Hct 35.4 L MCV 75.3 L MCH 23 L MCHC 31.1 L RDW 17.5 H Plt Count 433 H D MPV 11.8 Neut % (Auto) 68.9 Lymph % (Auto) 26.2 [place] % (Auto) 4.0 Eos % (Auto) 0.0 Baso % (Auto) 0.1 Neut # (Auto) 12.5 H Lymph # (Auto) 4.7 H [place] # (Auto) 0.7 Eos # (Auto) 0.0 Baso # (Auto) 0.0 Immature Gran % 0.8 Nucleated RBC % 0.0 Immature Gran # 0.14 Nucleated RBCs # 0.00 ABG pH ABG pCO2 ABG pO2 ABG HCO3 ABG Total CO2 ABG O2 Saturation ABG Base Excess Sodium Potassium Chloride Carbon Dioxide Anion Gap BUN Creatinine GFR Calculation BUN/Creatinine Ratio Glucose Calculated Osmolality Calcium Magnesium B-Natriuretic Peptide 183 H DS: Provider Date of admission: 09/10/16 12:31 Primary care physician: Teresa Schafer NP Attending physician on admission: Darby Funes MD Consults: 09/10/16 14:20 Consult to Physician [CONS] Routine Comment: chf and afib Consulting Provider: Edgardo Melendez Person Notified: [employer] answering service Date Notified: 09/10/16 Time Notified: 14:45 Consult to Physician [CONS] Routine Comment: severe laly, afib and chf Consulting Provider: Sahra Mishra Person Notified: sleep lab statistical secretary Date Notified: 09/10/16 Time Notified: 14:33 09/10/16 15:04 Consult to Physician [CONS] Routine Comment: leukemia Consulting Provider: Edgardo Mukherjee 09/11/16 09:16 Consult to Physician [CONS] Routine Comment: respiratory failure, cll Consulting Provider: Rachid Cunha Person Notified: Dr. Cunha Date Notified: 09/11/16 Time Notified: 09:06 09/11/16 09:18 Consult to Occupational Therapy [CONS] Routine Reason for Occupational Therapy: Evaluate and Treat Consult to Physical Therapy [CONS] Routine Reason for Physical Therapy: Evaluate and Treat 09/11/16 13:08 Consult to Case Mgmt/Social Srvs [CONS] Routine Reason for Case Mgmt/Social Srvs: LTAC Consult Comment: [facility] referral 09/12/16 13:58 Consult to Pharmacy [CONS] Routine Reason for Pharmacy Consult: Other Comment: calculate and dose iron replacement 09/12/16 14:30 Consult to Pharmacy [CONS] Routine Reason for Pharmacy Consult: Other Comment: IRON REPLACEMENT DOSE 09/13/16 08:49 Consult to Physician [CONS] Routine Comment: f/u on wrist fx. closed reduction surgery 09/05/16 Consulting Provider: Ha Carlton Person Notified: Dr. Carlton Date Notified: 09/13/16 Time Notified: 10:50 Consult Notification Comment: left message on cell phone 09/15/16 08:00 Consult to Speech Therapy [CONS] Routine Reason for Speech Therapy: Dysphagia Flouro Discharging clinician: Rylie Singh MD
--- NOTE | 2016-09-15 12:38 | Sleep Medicine Progress Note ---
Assessment and Plan (1) LALY (obstructive sleep apnea) Status: Acute Assessment and plan: We will need to have outpatient sleep study done. We will schedule this at the next available date. Current Visit: Yes (2) Atrial fibrillation with rapid ventricular response Status: Acute Current Visit: No Sleep Medicine Subjective Interval history: Patient does appear to be doing much better. She had an auto BiPAP machine to use over the weekend but has not been using it. We will try to get her in soon for reevaluation and titration. She will likely need a diagnostic study in addition to titration. Exam (Progress Note) - Constitutional Vitals: Period Temp Pulse Resp BP Sys/Leyva Pulse Ox Last 24 Hr 97.5 F-99.3 F 72-97 13-22 105-168/52-98 88-100 Exam: Patient sitting upright eating a meal. She looks much more comfortable. Chest with good air movement and less wheeze though some wheezes still present. Cardiac exam reveals a regular rhythm without murmur or gallop. Abdomen obese nontender extremities without edema. Results - Labs CBC & BMP: 09/15/16 03:41 09/15/16 03:41 Lab Results: I have reviewed the past 24 hour labs
[2016-09-15] MEDS ORDERED: FUROSEMIDE 40 MG/4 ML VIAL IV SCH (16:00)
[2016-09-15 16:02] VITALS: BP 125/78
[2016-09-15] MEDS ORDERED: MYRBETRIQ PO SCH (19:00)
== END 2016-09-15 14:30 | DRG 291 ==
LOC: EDBD → EDUNIT# → N.ED 10:50 → N.EDINP 12:31 → SUATTDRO 12:31 → N.CC 12:59
PROVIDERS: ADMIT Internal Medicine; ATTEND Internal Medicine

== ENCOUNTER 2016-09-28 13:57 | Inpatient (IN) ==
[2016-09-28] MEDS ORDERED: METOCLOPRAMIDE 10 MG/2 ML VIAL IV STA (14:22)
[2016-09-28] MEDS ORDERED: PANTOPRAZOLE 40 MG VIAL IV STA (14:22)
[2016-09-28] MEDS ORDERED: metroNIDAZOLE INJ 500 MG in PREMIX 1 EACH IV STA (14:22)
[2016-09-28] MEDS ORDERED: ONDANSETRON 4 MG/2 ML VIAL IV STA (14:22)
[2016-09-28] MEDS ORDERED: LEVOFLOXACIN INJ 750 MG in PREMIX 1 EACH IV STA (14:22)
[2016-09-28] MEDS ORDERED: SODIUM CHLORIDE 0.9% 1,000 ML IV STA (14:22)
--- NOTE | 2016-09-28 14:30 | Emergency Department Note ---
Arrival - Arrival ED Nursing Triage Note: C/o abd pain and N/V/D-onset 4 days ago. Patient has been a patient at [facility], signed out AMA today. Son reports that they were told she was going to have to have an NG tube for a "poison" in her stomach, son sates that he thinks she needs the procedure done here. Mode of Arrival: Wheelchair Limitations: No Limitations Source: Patient, Family - History of Present Illness Onset (ago): day(s) (Patient presents 4 days post onset of symptoms) Date of Last Menstrual Period: hysterectomy <Diego Sharif - Last Filed: 09/28/16 15:30> <Rachid Ochoa - Last Filed: 09/28/16 20:24> - Arrival Chief Complaint: Abdominal / Flank Pain Stated Complaint: Pain in abdomen, vomiting Time Seen by Provider: 09/28/16 14:22 - History of Present Illness HPI Narrative: This patient presents with a history of 4 days of nausea, vomiting, diarrhea, chills, and fever. She does state that at times her bowel movements look black but she has had no bright red blood per bowel movement. At no time has she had complaints of chest pain or shortness of breath. She had been hospitalized at [facility] where she and her family felt her problems were not addressed as she was appearing to progressively decline and there was concern that she would wind up with another lengthy hospitalization. The patient formally had spent a prolonged inpatient stay earlier in the month when she presented with a fractured left forearm with subsequent development of problems congestive heart failure and flare of COPD complicated by chronic lymphocytic leukemia. This was further complicated by an E. coli UTI which after an extended hospitalization she was transferred to [facility] for physical therapy and Occupational Therapy. Currently she appears uncomfortable and in some mild distress. (Diego Sharif) Allergies/Adverse Reactions: Allergies Allergy/AdvReac Type Severity Reaction Status Date / Time aspirin AdvReac Severe Nausea Verified 08/01/16 16:13 Home Medications: Home Medications Medication Instructions Recorded Confirmed Type Gabapentin Cap/Tab [Neurontin 600 mg PO BEDTIME 10/20/14 09/10/16 History Cap/Tab] Apixaban [Eliquis] 5 mg PO BID 12/21/15 09/10/16 History Isosorbide Mononitrate [Imdur] 15 mg PO QPM 12/21/15 09/10/16 History Escitalopram [Lexapro] 10 mg PO QPM 06/24/16 09/10/16 History Mirabegron [Myrbetriq] 50 mg PO QPM 06/24/16 09/10/16 History Pramipexole Di-HCl [Pramipexole ER] 0.75 mg PO QPM 06/24/16 09/10/16 History Pantoprazole Sodium [Protonix] 40 mg PO QPM 09/05/16 09/10/16 History Acetaminophen Tab [Tylenol Tab] 650 mg PO Q4H PRN #0 tablet 09/15/16 Rx Albuterol Neb [Proventil Neb] 2.5 mg RESP TX RT Q1H PRN #0 09/15/16 Rx Albuterol/Ipratropium Neb [Duoneb] 3 ml RESP TX RT Q4H 09/15/16 Rx Diltiazem Cd Cap [Cardizem CD] 240 mg PO BEDTIME capsule 09/15/16 Rx Famotidine Inj [Pepcid Inj] 20 mg IV Q12H vial 09/15/16 Rx Ferrous Sulfate Tab [Feosol 325 mg PO BID tablet 09/15/16 Rx Original Tab] Fluconazole Tab [Diflucan Tab] 200 mg PO DAILY tablet 09/15/16 Rx Furosemide Inj [Lasix Inj] 40 mg IV BID DIURETIC vial 09/15/16 Rx Piperacillin/Tazobactam [Zosyn] 3,375 mg IV Q8H vial 09/15/16 Rx Spironolactone [Aldactone] 25 mg PO BID tablet 09/15/16 Rx Valsartan [Diovan] 40 mg PO DAILY tablet 09/15/16 Rx acetaZOLAMIDE INJ [Diamox Inj] 250 mg IV DAILY vial 09/15/16 Rx methylPREDNISolone SOD SUC INJ 80 mg IV Q12H vial 09/15/16 Rx [SoluMEDROL] Review of System - Review of System 12 point system: reviewed and no additional remarkable complaints except as stated - Review of System Constitutional: Present: as per HPI Respiratory: Present: as per HPI Cardiovascular: Present: as per HPI Gastrointestinal: Present: as per HPI <Diego Sharif W - Last Filed: 09/28/16 15:30> Medical,Surgical,& Family Hx - Medical History Cardio: History of: CHF No history of: CAD, Hypertension, [place] Neurology: History of: Peripheral Neuropathy Respiratory: History of: COPD, Pulmonary Embolism, Pneumonia No history of: Lung Cancer (LYMPHOMA, LEUKEMIA) Genitourinary: History of: Kidney Stones Hematology: No history of: Blood Transfusion Reaction Other: History of: Miscellaneous Medical Problems (lymphoma) No history of: Anesthesia Reactions - Surgical History Cardiac Surgeries: Patient Denies: Cardiac Catheterization Neurologic Surgeries: Patient denies: Neurologic Surgery Abdominal Surgeries: Surgical HX of: Cholecystectomy, EGD, Hernia Repair Reproductive Surgeries: Surgical HX of;: Gynecologic Surgery, Hysterectomy Orthopedic Surgeries: Surgical HX of;: Total Knee Replacement (bilateral) - Family History Family History: Reports;: Family Cancer (mother), Family Diabetes (grandmother) - Social History Smoking Status: Never smoker Frequency of Alcohol Use: None Type of Drug Use: None <Diego Sharif - Last Filed: 09/28/16 15:30> Exam <Diego Sharif - Last Filed: 09/28/16 15:30> <Rachid Ochoa - Last Filed: 09/28/16 20:24> Physical Examination: GENERAL: Obese chronically ill-appearing white female in mild distress. HEENT: Normocephalic. No trauma. Moist mucous membranes. EOMI. PERRLA. ENT NML NECK: Supple. No adenopathy. CARDIAC: Regular. No murmurs. Heart rate 110 CHEST: Clear to auscultation. No respiratory distress. O2 sat 95% ABDOMEN: Firm with generalized tenderness and occasional tingling bowel sounds. EXTREMITIES: No trauma. Normal ROM. No pedal edema. Left forearm in soft cast SKIN: No diaphoresis. No rash. NEURO: Alert. Neuro grossly intact. No focal deficits. (Diego Sharif) Vital Signs: Vital Signs Temperature 98.7 F 09/28/16 16:10 Pulse Rate 96 H 09/28/16 18:30 Respiratory Rate 18 09/28/16 18:30 Blood Pressure 130/85 09/28/16 18:30 O2 Sat by Pulse Oximetry 97 09/28/16 18:30 Course <Diego Sharif - Last Filed: 09/28/16 15:30> - Reevaluation(s) Time: 18:30 Time: 20:22 <Rachid Ochoa - Last Filed: 09/28/16 20:24> - Reevaluation(s) Reevaluation #1: I discussed patient with Dr. Shaver and radiology. He suggested a Gastrografin enema to determine whether this was complete obstruction versus partial/ileus. I discussed it with the patient and she thinks she can tolerate this. (Rachid Ochoa) Reevaluation #2: Patient remained stable with no vomiting here. It appears the patient has been on Solu-Medrol for the past 2 weeks. If that is the case, that may account for her high white blood cell count. There is no definite complete obstruction. It appears to be ileus versus partial small bowel obstruction. I have discussed patient with the hospitalist service who will see her and admit. ( Rachid Ochoa) Results - Labs CBC & BMP: 09/28/16 14:57 <Diego Sharif - Last Filed: 09/28/16 15:30> - Labs CBC & BMP: 09/28/16 14:57 09/28/16 14:57 Lab Results: I have reviewed the patients labs <Rachid Ochoa - Last Filed: 09/28/16 20:24> - Labs Labs: Laboratory Tests 09/28/16 09/28/16 09/28/16 14:57 15:05 15:20 INR 1.2 CK-MB (CK-2) < 1.0 Troponin I < 0.015 Amylase 31 Lipase 113.0 Ur Specific [place] 1.024 Urine Ketones 5 Urine RBC 2 Urine WBC 4 Urine Bacteria Occasional (Rachid Ochoa) - Impressions Atrial fibrillation with heart rate of 129. Normal QRS duration. Poor R-wave progression anteriorly diffuse nonspecific ST changes. (Diego Sharif) CT abdomen shows:Distention of small bowel and colon to the level of splenic flexure. There is an abrupt transition in the caliber of colon at splenic flexure level, though there is no obvious wall thickening or focal mass. There could be a benign stricture in this area. Contrast enema may provide useful information. There is a knuckle of transverse colon within a ventral wall hernia to the right of the midline just superior to the level of umbilicus, though this does not appear to be a point of definite mechanical obstruction Gastrografin enema shows:There is no evidence of mechanical colon obstruction. There is no focal colon mass. The abnormal bowel distention, primarily small bowel, presumably represents either ileus or partial small bowel obstruction. (Rachid Ochoa) Disposition <Diego Sharif - Last Filed: 09/28/16 15:30> Case discussed with: patient, patient's family Time of Disposition: 20:24 <Rachid Ochoa - Last Filed: 09/28/16 20:24> Clinical Impression: Abdominal pain, Vomiting, Ileus Disposition: Still a Patient Condition: Stable
[2016-09-28 15:19] LABS: Basophils % 0.2 % (0.0-0.8); Eosinophils % 0.1 % (0.00-10.9); Hematocrit 36.8 VOL% (35.7-47.0); Hemoglobin 11.9 GM/DL (12.0-16.0); Immature Granulocytes % 0.4 %; Immature Granulocytes Absolute 0.09 #; Lymphocytes # 10.3 10*3/uL (1.4-4.0); Lymphocytes % 42.8 % (21.3-54.2); Mean Corpuscular HGB Conc 32.3 GM/DL (32-36); Mean Corpuscular Hemoglobin 24 PG (27-34); Mean Corpuscular Volume 75.3 FL (87-102); Mean Platelet Volume 10.9 FL (9.6-12.0); Monocytes # 0.8 10*3/uL (0.11-0.8); Monocytes % 3.4 % (1.7-12.7); Neutrophils # 12.8 10*3/uL (1.4-7.4); Neutrophils % 53.1 % (38.7-73.9); Platelet Count 232 T/CUMM (130-400); Red Blood Count 4.89 MC/CUMM (3.8-5.5); Red Cell Distribution Width 21.1 % (9.3-17.3)
[2016-09-28] MEDS ORDERED: METOCLOPRAMIDE 10 MG/2 ML VIAL ONE (15:19)
[2016-09-28] MEDS ORDERED: metroNIDAZOLE 500 MG/100 ML PREMIX IV ONE (15:19)
[2016-09-28] MEDS ORDERED: PANTOPRAZOLE 40 MG VIAL IV ONE (15:19)
[2016-09-28] MEDS ORDERED: LEVOFLOXACIN INJ 150 ML IV ONE (15:19)
[2016-09-28] MEDS ORDERED: ONDANSETRON 4 MG/2 ML VIAL ONE (15:19)
--- NOTE | 2016-09-28 15:25 | EKG Report ---
Stationary ECG Study [facility] ER Test Date: 09/28/2016 3:22:38 PM Pat Name: JADA BECKMAN Department: Room: Gender: F Weapons Specialist: : 1950 Requested by: Diego Rivera Order Number: [id number] Reading MD: ANISA RUIZ Intervals [place] Rate: 129 P: 999 TN: 0 QRS: -64 QRSD: 111 T: 13 QT: 291 QTc: 367 Interpretive Statements ATRIAL FIBRILLATION WITH RAPID VENTRICULAR RESPONSE LOW QRS VOLTAGE IN PRECORDIAL LEADS LEFT ANTERIOR FASCICULAR BLOCK Electronically Signed On 09-28-16 17:05:33 CDT by ANISA RUIZ [email or web address]
[2016-09-28 15:30] LABS: INR 1.2; PT Patient Result 12.7 SECS; Partial Thromboplastin Time 30.2 SECS (0-40)
[2016-09-28 15:31] LABS: Apearance,Urine Slightly Hazy (Clear); Bacteria,Urine Occasional /HPF (Few); Bilirubin,Urine Negative (Negative); Blood, Urine Negative (Negative); Glucose,Urine (UA) Negative (Negative); Hyaline Casts,Urine 6 /LPF (0-3); Ketones,Urine 5 mg/dL (Negative); Mucus,Urine Moderate /LPF (Occasional); Nitrite,Urine Negative (Negative); Protein,Urine 30 MG/DL; RBC,Urine 2 /HPF (0-4); Squamous Epithelial Cell,Urine Occasional /HPF (0-10); Urine Color Amber (Yellow); Urine Specific Gravity 1.024 (1.001-1.035); Urine Urobilinogen < 2.0 EU/DL (0.2-1.0); WBC,Urine 4 /HPF (0-6)
[2016-09-28] MEDS ORDERED: DILTIAZEM 50 MG/10 ML VIAL IV STA (15:31)
[2016-09-28 15:39] LABS: Lactic Acid 1.6 MMOL/L (0.4-2.0)
[2016-09-28 15:57] LABS: Alanine Aminotransferase 47 U/L (13-56); Albumin 3.6 G/DL (3.4-5.0); Alkaline Phosphatase 158 U/L (45-117); Amylase 31 U/L (25-115); Aspartate Amino Transferase 32 U/L (0-37); Blood Urea Nitrogen 27 MG/DL (7-18); Calcium 9.1 MG/DL (8.5-10.1); Glucose 145 MG/DL (74-106); Osmolality,Calculated 273.4 MOS/KG (273-304); Potassium 4.5 MMOL/L (3.5-5.1); Sodium 133 MMOL/L (136-145); Total Protein 7.1 G/DL (6.4-8.3); Troponin I Only < 0.015 NG/ML (0.00-0.045)
--- NOTE | 2016-09-28 16:06 | XRay Report ---
History: Abdominal pain Date: 09/28/2016 Study: Chest x-ray AP portable Comparison exam: September 27, 2016 There is continued cardiomegaly. Mediastinal contours are unchanged. The pulmonary vasculature is upper normal. There is no gross pleural effusion. The lungs are generally clear. Osseous structures are unchanged. Impression: Cardiomegaly without overt CHF. No gross change from the previous study PROCEDURE INTERPRETED AT [facility] DEPARTMENT OF RADIOLOGY Final Report Signed by: Dr. Consuelo Shaver
[2016-09-28 16:32] LABS: Lymphocytes 27 % (20-55); Segmented Neutrophils 70 % (50-85); Total Cells Counted 100
[2016-09-28 16:33] LABS: Hypochromasia Slight; Microcytosis Slight; Platelet Estimate Normal; Smudge Cells Few
[2016-09-28] MEDS ORDERED: DILTIAZEM 50 MG/10 ML VIAL IV ONE (16:39)
--- NOTE | 2016-09-28 17:54 | CT Report ---
History: Small bowel obstruction. Abdominal pain. Fever. Elevated white blood cell count Date: 09/28/2016 Study: CT abdomen and pelvis with IV and oral contrast Comparison exam: October 16, 2015 CT abdomen and pelvis Technique: Spiral CT sections were obtained from the lung bases to the pubic symphysis following oral contrast and 100 mL Omnipaque [address] exam was performed using one or more of the following dose reduction techniques: Automated exposure control, adjustment of the mA and/or kV according to patient size, or use of iterative reconstruction technique. CT abdomen: There is a nonspecific mild left-sided pleural effusion. There is no tuan pneumonia in the lung bases. There is a moderate-sized hiatal hernia. There is no evidence of pneumoperitoneum. There is distention of small bowel throughout the abdomen. There is also distention of ascending and transverse colon to the level of the splenic flexure. There is an abrupt transition in the caliber of the colon at the splenic flexure level, though there is no obvious mass. This could represent some type of benign stricture. There is no obvious internal hernia. The gallbladder is surgically absent. The liver, adrenal glands, pancreas are unremarkable. The spleen is unremarkable. There are some small splenules near the hilum. There is bilateral renal excretion without hydronephrosis. There is no solid enhancing renal mass. There are some small rounded benign cysts, seemingly simple in nature, associated with the left kidney. There is no aortic aneurysm. There is an infrarenal IVC filter in place. There is a small ventral wall hernia to the right of midline which contains a knuckle of transverse colon, though this does not appear to be a point of mechanical obstruction. There has been previous midline abdominal surgery. CT pelvis: A Pablo catheter is positioned with its tip in the lumen of the urinary bladder. The uterus is surgically absent. Impression: Distention of small bowel and colon to the level of splenic flexure. There is an abrupt transition in the caliber of colon at splenic flexure level, though there is no obvious wall thickening or focal mass. There could be a benign stricture in this area. Contrast enema may provide useful information. There is a knuckle of transverse colon within a ventral wall hernia to the right of the midline just superior to the level of umbilicus, though this does not appear to be a point of definite mechanical obstruction Previous cholecystectomy and hysterectomy PROCEDURE INTERPRETED AT [facility] DEPARTMENT OF RADIOLOGY Final Report Signed by: Dr. Consuelo Shaver
--- NOTE | 2016-09-28 19:41 | Fluoroscopy Report ---
History: Abnormal bowel distention. Bowel obstruction Date: 09/28/2016 Study: Single contrast Gastrografin enema Comparison exam: CT scan of the abdomen 09/28/2016 Dilute Gastrografin was instilled into the colon in a retrograde fashion under intermittent fluoroscopy. 2 minutes fluoroscopy time was utilized. Contrast material passes through the colon. There is no mechanical colonic obstruction or focal mass lesion. Images archived: 22 Impression: There is no evidence of mechanical colon obstruction. There is no focal colon mass. The abnormal bowel distention, primarily small bowel, presumably represents either ileus or partial small bowel obstruction. PROCEDURE INTERPRETED AT [facility] DEPARTMENT OF RADIOLOGY Final Report Signed by: Dr. Consuelo Shaver
--- NOTE | 2016-09-28 21:05 | Hospitalist History & Physical ---
Assessment and Plan (1) Small bowel obstruction Status: Acute Assessment and plan: In general patient seems to be doing better in terms of vital signs. She does have an elevated white count. She does have tenderness to palpation in the upper abdominal area in the left lower quadrant. CT scan does show dilated loop of small bowel with air-fluid meniscus in the stomach. Patient will have a [place] sump NG tube placed to slow continuous growth Gomco suction. Repeat a KUB in the morning. Patient is not febrile at this time. Does not look toxic I believe a surgical consult can see the patient in the morning. Patient will be n.p.o. Current Visit: Yes (2) Abdominal pain Status: Acute Assessment and plan: Conservatively treat the abdominal pain with IV Dilaudid 0.5 mg every 4 hours as needed. Current Visit: Yes (3) Vomiting Status: Acute Assessment and plan: Patient will have an NG tube Current Visit: Yes (4) Atrial fibrillation with rapid ventricular response Status: Acute Assessment and plan: Patient had a heart rate of around 129 at admission but got better. If this increases again I will start patient on IV diltiazem put patient on a monitored bed. Current Visit: No History of Present Illness History of present illness: Ms. Blair is a 66 year old female, recently discharged from acute hospitalization at [facility] to [facility] rehab center, presents with a history of 4 days of nausea, vomiting, diarrhea, chills, and fever. No hematemesis. She does state that at times her bowel movements look black but she has had no bright red blood per bowel movement. At no time has she had complaints of chest pain or shortness of breath. She had been hospitalized at [facility] where she and her family felt her problems were not addressed as she was appearing to progressively decline and there was concern that she would wind up with another lengthy hospitalization. The patient formally had spent a prolonged inpatient stay earlier in the month when she presented with a fractured left forearm with subsequent development of problems congestive heart failure and flare of COPD complicated by chronic lymphocytic leukemia. This was further complicated by an E. coli UTI which after an extended hospitalization she was transferred to [facility] for physical therapy and Occupational Therapy. Patient is still complaining of some abdominal pain but states she has been having bowel movements. She is still slightly nauseous. The abdomen does look full. I have discussed with the primary care nurse in the emergency room place a [place] sump NG tube to continuous low Gomco suctioning. CT scan done shows dilated small bowel loops of fluid meniscus in the stomach and some air in the colon. Patient has a white count of 24,000. She however was using IV Solu-Medrol while at [facility] for the treatment of her respiratory problems. Solu-Medrol may contribute to some of the elevation of the white count. Home Medications Medication Instructions Recorded Confirmed Type Gabapentin Cap/Tab [Neurontin 600 mg PO BEDTIME 10/20/14 09/10/16 History Cap/Tab] Apixaban [Eliquis] 5 mg PO BID 12/21/15 09/10/16 History Isosorbide Mononitrate [Imdur] 15 mg PO QPM 12/21/15 09/10/16 History Escitalopram [Lexapro] 10 mg PO QPM 06/24/16 09/10/16 History Mirabegron [Myrbetriq] 50 mg PO QPM 06/24/16 09/10/16 History Pramipexole Di-HCl [Pramipexole ER] 0.75 mg PO QPM 06/24/16 09/10/16 History Pantoprazole Sodium [Protonix] 40 mg PO QPM 09/05/16 09/10/16 History Acetaminophen Tab [Tylenol Tab] 650 mg PO Q4H PRN #0 tablet 09/15/16 Rx Albuterol Neb [Proventil Neb] 2.5 mg RESP TX RT Q1H PRN #0 09/15/16 Rx Albuterol/Ipratropium Neb [Duoneb] 3 ml RESP TX RT Q4H 09/15/16 Rx Diltiazem Cd Cap [Cardizem CD] 240 mg PO BEDTIME capsule 09/15/16 Rx Famotidine Inj [Pepcid Inj] 20 mg IV Q12H vial 09/15/16 Rx Ferrous Sulfate Tab [Feosol 325 mg PO BID tablet 09/15/16 Rx Original Tab] Fluconazole Tab [Diflucan Tab] 200 mg PO DAILY tablet 09/15/16 Rx Furosemide Inj [Lasix Inj] 40 mg IV BID DIURETIC vial 09/15/16 Rx Piperacillin/Tazobactam [Zosyn] 3,375 mg IV Q8H vial 09/15/16 Rx Spironolactone [Aldactone] 25 mg PO BID tablet 09/15/16 Rx Valsartan [Diovan] 40 mg PO DAILY tablet 09/15/16 Rx acetaZOLAMIDE INJ [Diamox Inj] 250 mg IV DAILY vial 09/15/16 Rx methylPREDNISolone SOD SUC INJ 80 mg IV Q12H vial 09/15/16 Rx [SoluMEDROL] Allergies Allergy/AdvReac Type Severity Reaction Status Date / Time aspirin AdvReac Severe Nausea Verified 08/01/16 16:13 Medical,Surgical,& Family Hx - Medical History Cardio: History of: CHF No history of: CAD, Hypertension, [place] Neurology: History of: Peripheral Neuropathy Respiratory: History of: COPD, Pulmonary Embolism, Pneumonia No history of: Lung Cancer (LYMPHOMA, LEUKEMIA) Genitourinary: History of: Kidney Stones Hematology: No history of: Blood Transfusion Reaction Other: History of: Miscellaneous Medical Problems (lymphoma) No history of: Anesthesia Reactions - Surgical History Cardiac Surgeries: Patient Denies: Cardiac Catheterization Neurologic Surgeries: Patient denies: Neurologic Surgery Abdominal Surgeries: Surgical HX of: Cholecystectomy, EGD, Hernia Repair Reproductive Surgeries: Surgical HX of;: Gynecologic Surgery, Hysterectomy Orthopedic Surgeries: Surgical HX of;: Total Knee Replacement (bilateral) - Family History Family History: Reports;: Family Cancer (mother), Family Diabetes (grandmother) - Social History Smoking Status: Never smoker Frequency of Alcohol Use: None Type of Drug Use: None Review of systems: A 12 point system assessment was done. What stands out in the patient's complaint of abdominal pain and history of presenting illness of nausea vomiting and some diarrhea. In talking to the patient she does seem to say that her diarrhea is on and off for many years but recurrent nausea and vomiting and abdominal pain is new so as such review of systems significant for the chief complaint is her presenting illness past medical history the patient is mild distress with abdominal discomfort. The rest of the 12 point system assessment was noncontributory. Exam - Constitutional Vitals: Period Temp Pulse Resp BP Sys/Leyva Pulse Ox Last 24 Hr 98.7 F-98.7 F 92-137 18-22 111-139/47-88 95-97 General appearance: morbidly obese - Head Head exam: Present: normocephalic, atraumatic - Eye Eye exam: Present: EOMI, other (Anicteric sclera no conjunctival petechia) Pupils: Present: AISSATOU - ENT ENT exam: Present: normal exam, normal oropharynx - Neck Neck exam: Present: normal inspection, other (Supple neck no JVD midline trachea no adenopathy no thyromegaly) - Respiratory Respiratory exam: Present: other (Distant lung sounds rales no wheezing no rales no rhonchi) - Cardiovascular Cardiovascular exam: Present: irregular rhythm (Irregular heartbeat patient does have atrial fibrillation on EKG when the data EKG the heart rate was about 129 beats a minute but when I was examining her it was below 100) - GI/Abdominal GI/Abdominal exam: Present: other (Very infrequent bowel sounds that tend to be high-pitched in the upper abdomen I could not elicit a succussion splash) - Extremities Exam Extremities exam: Present: full ROM, other (Patient is very obese she can move her extremities but movement is limited by body habitus) - Neurological Exam Neurological exam: Present: alert, oriented X3, CN II-XII intact - Psychiatric Psychiatric exam: Present: normal affect, normal mood - Skin Skin exam: Present: normal color, warm, dry Results - Labs CBC & BMP: 09/28/16 14:57 09/28/16 14:57 Lab Results: I have reviewed the past 24 hour labs (There is modest elevation of creatinine to 1.2 however this is lower than all the creatinine was recently documented on how. She also has mild hyponatremia elevated white count of 24, 000 mild anemia hematocrit of 36.8 hemoglobin 11.9)
[2016-09-28] MEDS ORDERED: HYDROmorphone 2 MG/1 ML VIAL IV PRN (21:30)
[2016-09-28] MEDS: ENOXAPARIN 100 MG/ML SYRINGE SUBCUT SCH (23:32)
[2016-09-28] MEDS: methylPREDNISolone SOD SUC 40 MG/1 ML VIAL IV SCH (23:33)
[2016-09-29 00:55] LABS: Basophils % 0.1 % (0.0-0.8); Eosinophils # 0.1 10*3/uL (0.0-0.87); Eosinophils % 0.4 % (0.00-10.9); Hemoglobin 11.1 GM/DL (12.0-16.0); Immature Granulocytes % 0.5 %; Immature Granulocytes Absolute 0.11 #; Lymphocytes # 10.1 10*3/uL (1.4-4.0); Lymphocytes % 45.5 % (21.3-54.2); Mean Corpuscular HGB Conc 32.6 GM/DL (32-36); Mean Corpuscular Hemoglobin 25 PG (27-34); Mean Corpuscular Volume 75.6 FL (87-102); Mean Platelet Volume 11.1 FL (9.6-12.0); Monocytes # 0.9 10*3/uL (0.11-0.8); Monocytes % 4.1 % (1.7-12.7); Neutrophils % 49.4 % (38.7-73.9); Platelet Count 195 T/CUMM (130-400); Red Cell Distribution Width 20.9 % (9.3-17.3); White Blood Count 22.2 T/CUMM (4-12)
[2016-09-29 01:19] LABS: Calcium 8.9 MG/DL (8.5-10.1); Magnesium 1.8 MG/DL (1.8-2.4)
[2016-09-29] MEDS: metroNIDAZOLE INJ 500 MG in PREMIX 1 EACH IV SCH ×3 (01:39→17:00)
[2016-09-29] MEDS ORDERED: ONDANSETRON 4 MG/2 ML VIAL IV PRN (03:34)
[2016-09-29 04:26] LABS: Anisocytosis 1+; Lymphocytes 18 % (20-55); Myelocytes 1 %; Segmented Neutrophils 81 % (50-85); Total Cells Counted 100
[2016-09-29 04:27] LABS: Platelet Estimate Normal
--- NOTE | 2016-09-29 09:00 | General Surgery Consult Note ---
Assessment and Plan - Time spent with patient Time spent with patient: Less than 30 minutes (1) Abdominal pain Status: Acute Assessment and plan: Her symptoms seem to be resolving. The etiology of this is unclear. I feel like this is less likely to be a mechanical small bowel obstruction and more likely an ileus or changes related to a gastroenteritis. This appears to be resolving and she currently denies diarrhea or abdominal pain currently. I would manage this conservatively as you are doing. Do not see a need for surgical intervention at this time but I will follow with you. Current Visit: Yes Qualifiers: Abdominal location: generalized Qualified Code(s): R10.84 - Generalized abdominal pain (2) Small bowel obstruction Status: Acute Assessment and plan: I think that bowel obstruction is less likely since there was distention of the colon as well. Current Visit: Yes (3) Morbid obesity Status: Chronic Assessment and plan: This makes her exam more difficult and would raise her risk for perioperative morbidity if surgery is needed. Current Visit: No Qualifiers: Obesity type: due to excess calories Qualified Code(s): E66.01 - Morbid ( severe) obesity due to excess calories History of Present Illness Chief complaint: Abdominal pain History of present illness: Ms. Blair is a 66 year old female Who 5 days ago at [facility] develops abdominal pain nausea vomiting and diarrhea. She continued to have pain and diarrhea over the next several days. She was transferred yesterday evening with the same complaints after she had basically checked herself out of [facility] and came to our emergency room. She was admitted and a Gastrografin enema obtained which was negative for colonic obstruction. A CT scan showed dilated large and small bowel. Since that time she states that her abdominal pain has resolved. The pain was generalized and intermittent before. She has no pain currently. She states that the diarrhea has resolved. Her nausea and vomiting is better as well. Home Medications Medication Instructions Recorded Confirmed Type Gabapentin Cap/Tab [Neurontin 600 mg PO BEDTIME 10/20/14 09/10/16 History Cap/Tab] Apixaban [Eliquis] 5 mg PO BID 12/21/15 09/10/16 History Isosorbide Mononitrate [Imdur] 15 mg PO QPM 12/21/15 09/10/16 History Escitalopram [Lexapro] 10 mg PO QPM 06/24/16 09/10/16 History Mirabegron [Myrbetriq] 50 mg PO QPM 06/24/16 09/10/16 History Pramipexole Di-HCl [Pramipexole ER] 0.75 mg PO QPM 06/24/16 09/10/16 History Pantoprazole Sodium [Protonix] 40 mg PO QPM 09/05/16 09/10/16 History Acetaminophen Tab [Tylenol Tab] 650 mg PO Q4H PRN #0 tablet 09/15/16 Rx Albuterol Neb [Proventil Neb] 2.5 mg RESP TX RT Q1H PRN #0 09/15/16 Rx Albuterol/Ipratropium Neb [Duoneb] 3 ml RESP TX RT Q4H 09/15/16 Rx Diltiazem Cd Cap [Cardizem CD] 240 mg PO BEDTIME capsule 09/15/16 Rx Famotidine Inj [Pepcid Inj] 20 mg IV Q12H vial 09/15/16 Rx Ferrous Sulfate Tab [Feosol 325 mg PO BID tablet 09/15/16 Rx Original Tab] Fluconazole Tab [Diflucan Tab] 200 mg PO DAILY tablet 09/15/16 Rx Furosemide Inj [Lasix Inj] 40 mg IV BID DIURETIC vial 09/15/16 Rx Piperacillin/Tazobactam [Zosyn] 3,375 mg IV Q8H vial 09/15/16 Rx Spironolactone [Aldactone] 25 mg PO BID tablet 09/15/16 Rx Valsartan [Diovan] 40 mg PO DAILY tablet 09/15/16 Rx acetaZOLAMIDE INJ [Diamox Inj] 250 mg IV DAILY vial 09/15/16 Rx methylPREDNISolone SOD SUC INJ 80 mg IV Q12H vial 09/15/16 Rx [SoluMEDROL] Allergies Allergy/AdvReac Type Severity Reaction Status Date / Time aspirin AdvReac Severe Nausea Verified 08/01/16 16:13 Medical,Surgical,& Family Hx - Medical History Cardio: History of: CHF No history of: CAD, Hypertension, ID Neurology: History of: Peripheral Neuropathy Respiratory: History of: COPD, Pulmonary Embolism, Pneumonia No history of: Lung Cancer (LYMPHOMA, LEUKEMIA) Genitourinary: History of: Kidney Stones Hematology: No history of: Blood Transfusion Reaction Other: History of: Miscellaneous Medical Problems (lymphoma) No history of: Anesthesia Reactions - Surgical History Cardiac Surgeries: Patient Denies: Cardiac Catheterization Neurologic Surgeries: Patient denies: Neurologic Surgery Abdominal Surgeries: Surgical HX of: Cholecystectomy, EGD, Hernia Repair Reproductive Surgeries: Surgical HX of;: Gynecologic Surgery, Hysterectomy Orthopedic Surgeries: Surgical HX of;: Total Knee Replacement (bilateral) - Family History Family History: Reports;: Family Cancer (mother), Family Diabetes (grandmother) - Social History Smoking Status: Former smoker Frequency of Alcohol Use: None Type of Drug Use: None - Constitutional Constitutional: Absent: chills, fever(s), weight loss - EENT Nose, mouth and throat: Absent: dysphagia - Cardiovascular Cardiovascular: Absent: chest pain at rest, chest pain with activity, dyspnea, dyspnea on exertion, syncope - Respiratory Respiratory: Absent: cough, dyspnea, hemoptysis, dyspnea on exertion - Gastrointestinal Gastrointestinal: Present: abdominal pain, bloating, cramping, diarrhea, loose stools, nausea, vomiting. Absent: hematemesis, hematochezia, melena, jaundice - Genitourinary Genitourinary: Absent: dysuria, hematuria - Musculoskeletal Musculoskeletal: Absent: back pain - Neurological Neurological: Absent: focal weakness, syncope - Endocrine Endocrine: Absent: polyuria Hematologic/Lymphatic: Absent: easy bleeding, easy bruising Exam - Constitutional Vitals: Period Temp Pulse Resp BP Sys/Leyva Pulse Ox Last 24 Hr 97.3 F-98.7 F 74-137 18-24 111-169/47-88 91-97 General appearance: no acute distress, morbidly obese - Head Head exam: Present: normocephalic - Eye Eye exam: Absent: scleral icterus Pupils: Present: AISSATOU - ENT Mouth exam: Present: normal voice - Neck Neck exam: Present: trachea midline - Respiratory Respiratory exam: Present: clear to auscultation bilaterally. Absent: accessory muscle use - Cardiovascular Cardiovascular exam: Present: RRR - GI/Abdominal GI/Abdominal exam: Present: soft. Absent: distended, guarding, tenderness, rebound - Extremities Exam Extremities exam: Absent: edema - Neurological Exam Neurological exam: Present: alert, oriented X3. Absent: motor sensory deficit Speech: Present: normal - Skin Skin exam: Present: normal color Results - Labs CBC & BMP: 09/29/16 00:44 09/29/16 00:44 Lab Results: I have reviewed the past 24 hour labs - Diagnostic Findings Procedure: CT Abdomen and Pelvis: report reviewed by me, X-ray: report reviewed by me
[2016-09-29] MEDS: methylPREDNISolone SOD SUC 40 MG/1 ML VIAL IV SCH ×2 (09:19→22:14)
[2016-09-29] MEDS: PANTOPRAZOLE 40 MG VIAL IV SCH ×2 (09:19→21:12)
[2016-09-29] MEDS: ENOXAPARIN 100 MG/ML SYRINGE SUBCUT SCH ×2 (09:19→21:11)
--- NOTE | 2016-09-29 10:33 | XRay Report ---
Portable chest Date: 09/29/2016 Clinical history: Nasogastric tube placement Comparison: 09/28/2016 Technique: Portable AP sitting chest Findings: The tip of the nasogastric tube projects at the GE junction. Impression: The tip of the nasogastric tube projects at the GE junction and should be advanced further into the stomach. This finding was discussed with the patient's nurse, Maurizio at 10:30 AM 09/27/2016. Critical test results PROCEDURE INTERPRETED AT [facility] DEPARTMENT OF RADIOLOGY Final Report Signed by: Dr. Teresa Thompson
--- NOTE | 2016-09-29 11:22 | XRay Report ---
Exam: XR KUB Date: 09/29/2016 4:00 AM Comparison: 09/27/2016 Indication: Ileus versus SBO Technique:[Supine abdomen] Findings: Reduced gaseous distention of the bowel. Retained contrast in the colon. Postoperative findings with stable IVC filter. Degenerative changes are noted. Impression: Gaseous distention of bowel which can be seen with improved ileus or partial SBO. Retained Gastrografin in the colon. Follow-up x-ray may be helpful for further evaluation if symptoms persist. IVC filter. PROCEDURE INTERPRETED AT [facility] DEPARTMENT OF RADIOLOGY Final Report Signed by: Dr. Teresa Thompson
--- NOTE | 2016-09-29 13:59 | Hospitalist Progress Note ---
Assessment and Plan (1) Ileus Status: Acute Assessment and plan: 1)ileus symptoms improving. She has had some mod amount of NG output. COnsider taking NGT out tomorrow if she continue to improve. Dr Haile consulted and does not think she has small bowel obstruction. 2)morbid obesity 3)a fib with RVR- rate controlled on IV dilt while NPO. She is on Eliquis. 4)recent hypoxic resp failure from CHF and COPD and EColi UTI. 5)CLL 6)left distal radius fracture. Current Visit: Yes (2) Atrial fibrillation with rapid ventricular response Status: Acute Current Visit: No (3) Morbid obesity Status: Chronic Current Visit: No Qualifiers: Obesity type: due to excess calories Qualified Code(s): E66.01 - Morbid ( severe) obesity due to excess calories (4) CLL (chronic lymphocytic leukemia) Status: Chronic Current Visit: No (5) Fracture of left distal radius Status: Acute Current Visit: No Hospitalist: Subjective Interval history: Mrs Blair is doing well today. She has had a lot of relief from the NG tube. Her abdominal pain is resolved. She thinks she will be all better tomorrow. Exam - Constitutional Vitals: Period Temp Pulse Resp BP Sys/Leyva Pulse Ox Last 24 Hr 97.3 F-98.7 F 74-137 18-24 111-169/47-88 91-98 General appearance: no acute distress, morbidly obese - Head Head exam: Present: normocephalic, atraumatic - Eye Eye exam: Present: EOMI. Absent: scleral icterus - Respiratory Respiratory exam: Present: clear to auscultation bilaterally - Cardiovascular Cardiovascular exam: Present: irregular rhythm - GI/Abdominal GI/Abdominal exam: Present: hypoactive bowel sounds, soft. Absent: distended, firm, tenderness - Extremities Exam Extremities exam: Absent: edema - Neurological Exam Neurological exam: Present: alert, oriented X3 (good historian) - Skin Skin exam: Present: warm, dry Results - Labs CBC & BMP: 09/29/16 00:44 09/29/16 00:44 Lab Results: I have reviewed the past 24 hour labs
[2016-09-29] MEDS: LEVOFLOXACIN INJ 750 MG in PREMIX 1 EACH IV SCH (14:25)
[2016-09-30] MEDS: metroNIDAZOLE INJ 500 MG in PREMIX 1 EACH IV SCH ×3 (00:04→16:58)
[2016-09-30] MEDS: PANTOPRAZOLE 40 MG VIAL IV SCH ×2 (08:45→20:43)
[2016-09-30] MEDS: ENOXAPARIN 100 MG/ML SYRINGE SUBCUT SCH ×2 (08:49→20:40)
[2016-09-30] MEDS: methylPREDNISolone SOD SUC 40 MG/1 ML VIAL IV SCH ×2 (09:33→20:42)
--- NOTE | 2016-09-30 09:33 | General Surgery Progress Note ---
Assessment and Plan (1) Abdominal pain Status: Acute Assessment and plan: Her symptoms seem to be resolving. The etiology of this is unclear. I feel like this is less likely to be a mechanical small bowel obstruction and more likely an ileus or changes related to a gastroenteritis. This appears to be resolving and she currently denies diarrhea or abdominal pain currently. I would manage this conservatively as you are doing. Do not see a need for surgical intervention at this time but I will follow with you. 09/30: She is continued to improve. She is not having any abdominal pain or cramping. She is passing flatus. She is having minimal nasogastric output and I think that her nasogastric tube could be removed. I suspect that this is a resolving ileus. Current Visit: Yes Qualifiers: Abdominal location: generalized Qualified Code(s): R10.84 - Generalized abdominal pain (2) Small bowel obstruction Status: Acute Assessment and plan: I think that bowel obstruction is less likely since there was distention of the colon as well. Current Visit: Yes (3) Morbid obesity Status: Chronic Assessment and plan: This makes her exam more difficult and would raise her risk for perioperative morbidity if surgery is needed. Current Visit: No Qualifiers: Obesity type: due to excess calories Qualified Code(s): E66.01 - Morbid ( severe) obesity due to excess calories Subjective Patient reports: Present: feels better, flatus. Absent: still having pain Exam - Constitutional Vitals: Period Temp Pulse Resp BP Sys/Leyva Pulse Ox Last 24 Hr 96.6 F-98.6 F 76-104 18-20 108-146/49-70 94-98 - GI/Abdominal GI/Abdominal exam: Present: soft. Absent: distended, guarding, tenderness, rebound Results - Labs CBC & BMP: 09/29/16 00:44 09/29/16 00:44 Lab Results: I have reviewed the past 24 hour labs
--- NOTE | 2016-09-30 13:15 | Hospitalist Progress Note ---
Assessment and Plan (1) Ileus Status: Acute Assessment and plan: 1)ileus symptoms resolved. DC NGT and advance diet. on antibiotics. 2)morbid obesity 3)a fib with RVR- stop IV dilt and restart oral Cardizem CD. She is on lovenox, but was on Eliquis prior to admission. 4)recent hypoxic resp failure from CHF and COPD and EColi UTI. 5)CLL 6)left distal radius fracture. 7)elevated WBC- down from yesterday, recheck in am. Has been on steroids, no focal infection symptoms at this point. Current Visit: Yes (2) Atrial fibrillation with rapid ventricular response Status: Acute Current Visit: No (3) Morbid obesity Status: Chronic Current Visit: No Qualifiers: Obesity type: due to excess calories Qualified Code(s): E66.01 - Morbid ( severe) obesity due to excess calories (4) CLL (chronic lymphocytic leukemia) Status: Chronic Current Visit: No (5) Fracture of left distal radius Status: Acute Current Visit: No Hospitalist: Subjective Interval history: Mrs Blair is feeling so much better today. She wants the NGT out and to eat. She says she could go home today. She plans to go home then go to stay with her daughter. She does not think she needs home PT or OT. She was walking at the [facility]. Exam - Constitutional Vitals: Period Temp Pulse Resp BP Sys/Leyva Pulse Ox Last 24 Hr 96.6 F-98.6 F 76-104 18-20 108-146/49-70 91-98 General appearance: no acute distress, morbidly obese - Head Head exam: Present: normocephalic, atraumatic - Eye Eye exam: Present: EOMI. Absent: scleral icterus - Respiratory Respiratory exam: Present: clear to auscultation bilaterally - Cardiovascular Cardiovascular exam: Present: irregular rhythm - GI/Abdominal GI/Abdominal exam: Present: normal bowel sounds, soft. Absent: tenderness - Extremities Exam Extremities exam: Absent: edema Results - Labs CBC & BMP: 09/29/16 00:44 09/29/16 00:44 Lab Results: I have reviewed the past 24 hour labs
[2016-09-30] MEDS: DILTIAZEM CD 240 MG CAPSULE PO SCH (13:22)
[2016-09-30] MEDS: LEVOFLOXACIN INJ 750 MG in PREMIX 1 EACH IV SCH (15:13)
[2016-10-01] MEDS: metroNIDAZOLE INJ 500 MG in PREMIX 1 EACH IV SCH ×2 (00:24→08:48)
[2016-10-01] MEDS: DILTIAZEM CD 240 MG CAPSULE PO SCH (08:49)
[2016-10-01] MEDS: PANTOPRAZOLE 40 MG VIAL IV SCH (08:50)
[2016-10-01] MEDS: ENOXAPARIN 100 MG/ML SYRINGE SUBCUT SCH (08:50)
[2016-10-01] MEDS: methylPREDNISolone SOD SUC 40 MG/1 ML VIAL IV SCH (08:50)
[2016-10-01 10:34] LABS: Basophils % 0.1 % (0.0-0.8); Hemoglobin 10.7 GM/DL (12.0-16.0); Immature Granulocytes % 0.5 %; Lymphocytes # 12.1 10*3/uL (1.4-4.0); Lymphocytes % 54.4 % (21.3-54.2); Mean Corpuscular HGB Conc 32.4 GM/DL (32-36); Mean Corpuscular Hemoglobin 25 PG (27-34); Mean Corpuscular Volume 75.9 FL (87-102); Mean Platelet Volume 10.8 FL (9.6-12.0); Monocytes # 0.4 10*3/uL (0.11-0.8); Monocytes % 1.7 % (1.7-12.7); Neutrophils # 9.6 10*3/uL (1.4-7.4); Neutrophils % 43.3 % (38.7-73.9); Platelet Count 178 T/CUMM (130-400); Red Blood Count 4.35 MC/CUMM (3.8-5.5); Red Cell Distribution Width 21.3 % (9.3-17.3); White Blood Count 22.2 T/CUMM (4-12)
--- NOTE | 2016-10-01 11:10 | Discharge Summary ---
Hospital Course - Hospital Course Hospital Course: Ms. Blair is a 66-year-old white female with history of CHF, A. fib, PE, peripheral neuropathy, and CLL was readmitted by the hospitalist service on 09/28. The patient had a prolonged inpatient stay earlier this month when she presented with a fracture left forearm with congestive heart failure and COPD exacerbation complicated by chronic lymphocytic leukemia. Her stay was further complicated by an E. coli UTI which extended her hospital stay. She had been transferred to [facility] for physical therapy and Occupational Therapy. While there she had 4 day history of nausea, vomiting, diarrhea, chills and fever. She had no hematemesis but she states she did have a couple of black tarry stools with no bright red blood per rectum. This has since resolved. She felt this was not being addressed at [facility] so she checked herself out and came to the emergency room. She was readmitted with an ileus that did resolve conservatively. Dr. Haile did see and follow her as a telesales consultant. Patient is now tolerating a diet and having BMs. Patient has had no further black stools, patient's H&H is stable and she has been started on iron supplementation. Will have her follow-up with a GI doctor as an outpatient and patient is to continue her Protonix daily. Patient can follow-up on a as needed basis with Dr. Haile. Patient does have an elevated white count this is most likely from her steroid use during this hospital stay and may be related to her CLL. There are no signs of infectious process. She will need to follow-up with her oncologist, Dr. Mukherjee. Patient has received her full course of antibiotics. Patient's previous home medicines and LTAC discharge medicines along with this hospitalization medicines have been reviewed. Unnecessary medicines have been stopped and prescriptions for new medicines have been written. Patient will need to follow-up with her PCP Teresa Schafer in 1 month. Patient is going home with her daughter who lives out of town. She feels she does not need any home health PT but she states if she gets home she will call her primary care physician to get an order for it if needed. Patient's case has been discussed with Dr. Singh, hospitalist, manager case, nursing, and patient. Case coordination, chart review, medicine reconciliation , and all discharge paperwork took approximately 56 minutes. - Time spent with patient Time with patient DS: Greater than 30 minutes Diagnosis - Discharge Diagnosis (1) Black tarry stools Status: Resolved (2) Iron deficiency anemia Status: Chronic (3) Abdominal pain Status: Resolved (4) Vomiting Status: Resolved (5) Ileus Status: Resolved Discharge Plan - Discharge Data Disposition: Disch To Home/Self Care Condition at Discharge: Stable Discharge Diet: heart healthy Activity: as per physical therapy Hygiene: may shower Driving: no restrictions Contact your physician if you experience:: fever over 101, Nausea/Vomiting, Shortness of breath - Discharge Medications New Ipratropium/Albuterol Inhaler [Combivent Respimat Inhaler] 1 puff INH DAILY PRN #1 inhaler PRN Reason: sob Tiotropium [place] [Spiriva Respimat] 4 gm IH BID #1 mist.inhal Diltiazem Cd Cap [Cardizem CD] 240 mg PO DAILY #60 capsule predniSONE TAB [PredniSONE] 10 mg PO DAILY #6 tablet Continue Gabapentin Cap/Tab [Neurontin Cap/Tab] 600 mg PO BEDTIME Isosorbide Mononitrate [Imdur] 15 mg PO QPM Apixaban [Eliquis] 5 mg PO BID Mirabegron [Myrbetriq] 50 mg PO QPM Pramipexole Di-HCl [Pramipexole ER] 0.75 mg PO QPM Pantoprazole Sodium [Protonix] 40 mg PO QPM Albuterol Neb [Proventil Neb] 2.5 mg RESP TX RT Q1H PRN #0 PRN Reason: Shortness Of Breath/Wheezing Albuterol/Ipratropium Neb [Duoneb] 3 ml RESP TX RT Q4H Diltiazem Cd Cap [Cardizem CD] 240 mg PO BEDTIME capsule Ferrous Sulfate Tab [Feosol Original Tab] 325 mg PO BID #90 tablet Escitalopram [Lexapro] 10 mg PO QPM Discontinued Famotidine Inj [Pepcid Inj] 20 mg IV Q12H vial Fluconazole Tab [Diflucan Tab] 200 mg PO DAILY tablet Furosemide Inj [Lasix Inj] 40 mg IV BID DIURETIC vial Piperacillin/Tazobactam [Zosyn] 3,375 mg IV Q8H vial Spironolactone [Aldactone] 25 mg PO BID tablet acetaZOLAMIDE INJ [Diamox Inj] 250 mg IV DAILY vial methylPREDNISolone SOD SUC INJ [SoluMEDROL] 80 mg IV Q12H vial Acetaminophen Tab [Tylenol Tab] 650 mg PO Q4H PRN #0 tablet PRN Reason: Fever, Headache, Mild Pain Valsartan [Diovan] 40 mg PO DAILY tablet - Follow Up or Referral Follow Up: gastroenterology, physician [Other] - 1 Month (make appt with any GI doctor to follow up iron deficiency anemia and black tarry stools. follow up sooner if it happens again. ) Teresa Schafer NP [Primary Care Provider] - 1 Month Edgardo Mukherjee MD [Physician] - 1 Month - Forms/Instructions Exam - Constitutional Vitals: Period Temp Pulse Resp BP Sys/Leyva Pulse Ox Last 24 Hr 97.1 F-98.2 F 69-83 18-20 112-128/54-63 91-99 Exam: 66-year-old white female, no acute distress, alert and oriented Chest clear CV regular rate and rhythm Abdomen obese, nontender Extremities with no edema Discharge Results Procedures and tests throughout hospitalization: Pending Orders 09/28/16 01:05 Occult Blood, Stool Routine 09/28/16 15:05 Blood Culture Stat 10/01/16 10:24 CBC [Comp Blood Count Auto Diff] Stat Labs on day of discharge: Preliminary micro results at discharge 09/28/16 15:05 Blood Culture - Preliminary Blood Gram positive rods DS: Provider Date of admission: 09/28/16 20:38 Primary care physician: Teresa Schafer NP Attending physician on admission: Dilan Mejía MD Consults: 09/28/16 22:35 Consult to Physician [CONS] Routine Comment: On-call physician/SBO VS. ILEUS Consulting Provider: Consult to Specialist Group: Surgery When should Consulting Provider be notified: Now Person Notified: Dr. Mic SARKAR Date Notified: 09/29/16 Time Notified: 07:45 09/30/16 13:21 Consult to Occupational Therapy [CONS] Routine Reason for Occupational Therapy: Evaluate and Treat Consult to Physical Therapy [CONS] Routine Reason for Physical Therapy: Evaluate and Treat Discharging clinician: ZORA Weller Expected date of discharge: 10/01/16
[2016-10-01 11:15] LABS: Lymphocytes 44 % (20-55); Segmented Neutrophils 55 % (50-85); Total Cells Counted 100
[2016-10-01 11:16] LABS: Hypochromasia 1+; Microcytosis 1+; Smudge Cells Few
[2016-10-01 11:17] LABS: Ovalocytes Slight; Platelet Estimate Adequate
[2016-10-01 12:08] VITALS: BP 125/70
[2016-10-02] MEDS ORDERED: predniSONE 20 MG TABLET PO SCH (09:00)
== END 2016-10-01 14:38 | disposition home or self-care (01) | DRG 389 ==
LOC: N.ED 13:57 → N.TELEN 19:00 → SUATTDRO 20:38 → N.EDINP 20:38 → N.TELEN 22:03
PROVIDERS: ADMIT Internal Medicine Infectious Disease; ATTEND Internal Medicine

== ENCOUNTER 2017-06-06 12:01 | Inpatient (IN) ==
[2017-06-06] MEDS ORDERED: FUROSEMIDE 100 MG/10 ML VIAL IV STA (12:30)
[2017-06-06] MEDS ORDERED: MORPHINE 2 MG/1 ML SYRINGE IV STA (12:30)
[2017-06-06] MEDS: ALBUTEROL 2.5 MG/3 ML NEB RESP TX SCH ×3 (13:05→13:41)
[2017-06-06] MEDS ORDERED: FUROSEMIDE 100 MG/10 ML VIAL ONE (13:08)
[2017-06-06] MEDS ORDERED: MORPHINE 2 MG/1 ML SYRINGE ONE (13:08)
[2017-06-06 13:25] LABS: Basophils # 0.1 10*3/uL (0.0-0.2); Basophils % 0.2 % (0.0-0.8); Eosinophils # 0.1 10*3/uL (0.0-0.87); Eosinophils % 0.2 % (0.00-10.9); Hematocrit 36.3 VOL% (35.7-47.0); Hemoglobin 11.4 GM/DL (12.0-16.0); Immature Granulocytes Absolute 1.05 #; Lymphocytes # 6.9 10*3/uL (1.4-4.0); Lymphocytes % 26.1 % (21.3-54.2); Mean Corpuscular HGB Conc 31.4 GM/DL (32-36); Mean Corpuscular Hemoglobin 27 PG (27-34); Mean Corpuscular Volume 84.4 FL (87-102); Mean Platelet Volume 11.2 FL (9.6-12.0); Monocytes # 0.7 10*3/uL (0.11-0.8); Monocytes % 2.8 % (1.7-12.7); Neutrophils # 17.5 10*3/uL (1.4-7.4); Neutrophils % 66.7 % (38.7-73.9); Platelet Count 241 T/CUMM (130-400); Red Cell Distribution Width 16.1 % (9.3-17.3); White Blood Count 26.2 T/CUMM (4-12)
[2017-06-06 13:49] LABS: Lymphocytes 29 % (20-55); Platelet Estimate Adequate; Segmented Neutrophils 67 % (50-85); Total Cells Counted 100
[2017-06-06 13:50] LABS: Poikilocytosis Slight
[2017-06-06] MEDS ORDERED: MEROPENEM 1,000 MG in SODIUM CHLORIDE 0.9% 100 ML IV STA (13:56)
[2017-06-06 13:57] LABS: Albumin 3.1 G/DL (3.4-5.0); Bilirubin,Total 0.7 MG/DL (0.2-1.0); Calcium 7.2 MG/DL (8.5-10.1); Osmolality,Calculated 275.2 MOS/KG (273-304); Potassium 3.3 MMOL/L (3.5-5.1); Total Protein 6.9 G/DL (6.4-8.3)
[2017-06-06 13:57] LABS: Apearance,Urine CLEAR (Clear); Bacteria,Urine Occasional /HPF (Few); Bilirubin,Urine Negative (Negative); Blood, Urine Negative (Negative); Glucose,Urine (UA) Negative (Negative); Ketones,Urine Negative (Negative); Mucus,Urine Occasional /LPF (Occasional); Nitrite,Urine Negative (Negative); Protein,Urine Negative; RBC,Urine 2 /HPF (0-4); Urine Color Yellow (Yellow); Urine Specific Gravity 1.008 (1.001-1.035); Urine Urobilinogen < 2.0 EU/DL (0.2-1.0); WBC,Urine <1 /HPF (0-6)
[2017-06-06] MEDS ORDERED: MEROPENEM 1,000 MG VIAL IV ONE (14:20)
[2017-06-06] MEDS ORDERED: ALBUTEROL/IPRATROPIUM 3 ML NEB RESP TX STA (14:46)
[2017-06-06] MEDS ORDERED: ALBUTEROL/IPRATROPIUM 3 ML NEB RESP TX PRN (18:45)
[2017-06-06] MEDS ORDERED: ONDANSETRON 4 MG/2 ML VIAL IV PRN (18:45)
[2017-06-06] MEDS ORDERED: ACETAMINOPHEN 325 MG TABLET PO PRN (18:45)
[2017-06-06] MEDS ORDERED: POTASSIUM CHLORIDE 20 MEQ TABLET PO ONE (19:30)
[2017-06-06] MEDS: ALBUTEROL/IPRATROPIUM 3 ML NEB RESP TX SCH (19:47)
[2017-06-06] MEDS: methylPREDNISolone SOD SUC 125 MG/2 ML VIAL IV SCH (19:51)
[2017-06-06] MEDS: PIPERACILLIN/TAZOBACTAM 3,375 MG in SODIUM CHLORIDE 0.9% 100 ML IV SCH (19:53)
[2017-06-06] MEDS ORDERED: ALBUTEROL/IPRATROPIUM 3 ML NEB RESP TX SCH (21:00)
[2017-06-06] MEDS ORDERED: PRAMIPEXOLE 0.75 MG PO SCH (21:00)
[2017-06-06] MEDS: DILTIAZEM CD 120 MG CAPSULE PO SCH (21:08)
[2017-06-06] MEDS: GABAPENTIN 600 MG TABLET PO SCH (21:09)
[2017-06-06] MEDS: ISOSORBIDE MONONITRATE 30 MG TABLET PO SCH (21:09)
[2017-06-06] MEDS: APIXABAN 5 MG TABLET PO SCH (21:11)
[2017-06-06] MEDS: VANCOMYCIN INJ 1,750 MG in SODIUM CHLORIDE 0.9% 500 ML IV SCH (23:01)
[2017-06-07] MEDS: ALBUTEROL/IPRATROPIUM 3 ML NEB RESP TX SCH ×4 (01:09→20:49)
[2017-06-07] MEDS: PIPERACILLIN/TAZOBACTAM 3,375 MG in SODIUM CHLORIDE 0.9% 100 ML IV SCH ×4 (03:31→18:07)
[2017-06-07] MEDS: methylPREDNISolone SOD SUC 125 MG/2 ML VIAL IV SCH ×2 (03:31→11:17)
[2017-06-07 06:29] LABS: Basophils % 0.2 % (0.0-0.8); Hematocrit 36.4 VOL% (35.7-47.0); Hemoglobin 11.4 GM/DL (12.0-16.0); Immature Granulocytes % 2.4 %; Immature Granulocytes Absolute 0.57 #; Lymphocytes # 6.2 10*3/uL (1.4-4.0); Lymphocytes % 26.4 % (21.3-54.2); Mean Corpuscular HGB Conc 31.3 GM/DL (32-36); Mean Corpuscular Hemoglobin 26 PG (27-34); Mean Corpuscular Volume 83.7 FL (87-102); Mean Platelet Volume 10.9 FL (9.6-12.0); Monocytes # 0.2 10*3/uL (0.11-0.8); Monocytes % 0.8 % (1.7-12.7); Neutrophils # 16.5 10*3/uL (1.4-7.4); Neutrophils % 70.2 % (38.7-73.9); Platelet Count 212 T/CUMM (130-400); Red Blood Count 4.35 MC/CUMM (3.8-5.5); Red Cell Distribution Width 15.9 % (9.3-17.3); White Blood Count 23.6 T/CUMM (4-12)
[2017-06-07 07:19] LABS: Calcium 6.9 MG/DL (8.5-10.1); Osmolality,Calculated 287.2 MOS/KG (273-304); Potassium 3.6 MMOL/L (3.5-5.1); Thyroid Stimulating Hormone 0.103 uIU/ml (0.358-3.74)
[2017-06-07 07:29] LABS: Lymphocytes 17 % (20-55); Segmented Neutrophils 83 % (50-85); Total Cells Counted 100
[2017-06-07 07:30] LABS: Giant Platelets Few; Hypochromasia 1+; Microcytosis Slight; Ovalocytes Slight; Platelet Estimate Adequate
[2017-06-07] MEDS ORDERED: Alendronate [Fosamax] 70 MG PO SCH (07:30)
[2017-06-07] MEDS ORDERED: GLUCAGON 1 MG VIAL IM PRN (07:42)
[2017-06-07] MEDS ORDERED: DEXTROSE 50% 25 GM/50 ML VIAL IV PRN (07:42)
[2017-06-07] MEDS ORDERED: FUROSEMIDE 40 MG/4 ML VIAL IV SCH (08:00)
[2017-06-07] MEDS: MULTIVITAMIN (CENTRUM) TABLET PO SCH (08:53)
[2017-06-07] MEDS: PANTOPRAZOLE 40 MG TABLET PO SCH (08:53)
[2017-06-07] MEDS: ESCITALOPRAM 10 MG TABLET PO SCH (08:53)
[2017-06-07] MEDS: APIXABAN 5 MG TABLET PO SCH ×2 (08:53→20:44)
[2017-06-07] MEDS: MONTELUKAST 10 MG TABLET PO SCH (08:53)
[2017-06-07] MEDS: METOPROLOL SUCCINATE XL 50 MG TABLET PO SCH (08:53)
[2017-06-07] MEDS: VANCOMYCIN INJ 1,750 MG in SODIUM CHLORIDE 0.9% 500 ML IV SCH ×2 (08:54→20:42)
[2017-06-07] MEDS: OSELTAMIVIR 75 MG CAPSULE PO SCH ×2 (08:57→20:41)
[2017-06-07] MEDS ORDERED: SPIRONOLACTONE 25 MG TABLET PO SCH (09:00)
[2017-06-07] MEDS: INSULIN LISPRO 100 UNIT/ML SUBCUT SCH ×3 (11:17→22:37)
[2017-06-07] MEDS ORDERED: AMINOPHYLLINE 250 MG in SODIUM CHLORIDE 0.9% 100 ML IV ONE (13:58)
[2017-06-07] MEDS: INSULIN GLARGINE 100 UNIT/ML SUBCUT SCH (16:21)
[2017-06-07] MEDS: methylPREDNISolone SOD SUC 40 MG/1 ML VIAL IV SCH ×2 (16:21→22:37)
[2017-06-07] MEDS: FUROSEMIDE 40 MG TABLET PO SCH (16:22)
[2017-06-07] MEDS: PROPYLTHIOURACIL 50 MG TABLET PO SCH ×2 (17:40→20:41)
[2017-06-07 18:30] LABS: ABG Base Excess 10.3 MMOL/L (-2.5-2.5); ABG HCO3 35.2 MMOL/L (20-26); ABG Oxygen Saturation 91.5 % (95-100); ABG PH 7.483 (7.35-7.45); ABG PO2 62.4 MM HG (80-95); ABG TCO2 36.7 MMOL/L (23-27)
[2017-06-07] MEDS: DILTIAZEM CD 120 MG CAPSULE PO SCH (20:40)
[2017-06-07] MEDS: GABAPENTIN 600 MG TABLET PO SCH (20:41)
[2017-06-07] MEDS: ISOSORBIDE MONONITRATE 30 MG TABLET PO SCH (20:41)
[2017-06-07] MEDS: AMINOPHYLLINE 500 MG in SODIUM CHLORIDE 0.9% 480 ML IV SCH (20:43)
[2017-06-08] MEDS: ALBUTEROL/IPRATROPIUM 3 ML NEB RESP TX SCH ×4 (00:42→19:40)
[2017-06-08] MEDS: PIPERACILLIN/TAZOBACTAM 3,375 MG in SODIUM CHLORIDE 0.9% 100 ML IV SCH ×3 (02:06→18:47)
[2017-06-08 08:14] LABS: Basophils # 0.1 10*3/uL (0.0-0.2); Basophils % 0.3 % (0.0-0.8); Hematocrit 39.6 VOL% (35.7-47.0); Hemoglobin 12.4 GM/DL (12.0-16.0); Immature Granulocytes % 1.3 %; Immature Granulocytes Absolute 0.42 #; Lymphocytes # 8.1 10*3/uL (1.4-4.0); Lymphocytes % 25.5 % (21.3-54.2); Mean Corpuscular HGB Conc 31.3 GM/DL (32-36); Mean Corpuscular Hemoglobin 26 PG (27-34); Mean Corpuscular Volume 83.7 FL (87-102); Mean Platelet Volume 11.3 FL (9.6-12.0); Monocytes # 0.8 10*3/uL (0.11-0.8); Monocytes % 2.5 % (1.7-12.7); Neutrophils # 22.3 10*3/uL (1.4-7.4); Neutrophils % 70.4 % (38.7-73.9); Platelet Count 249 T/CUMM (130-400); Red Blood Count 4.73 MC/CUMM (3.8-5.5); White Blood Count 31.7 T/CUMM (4-12)
[2017-06-08 08:36] LABS: Calcium 6.8 MG/DL (8.5-10.1); Osmolality,Calculated 281.2 MOS/KG (273-304); Potassium 3.8 MMOL/L (3.5-5.1)
[2017-06-08] MEDS: VANCOMYCIN INJ 1,750 MG in SODIUM CHLORIDE 0.9% 500 ML IV SCH (08:42)
[2017-06-08] MEDS: INSULIN LISPRO 100 UNIT/ML SUBCUT SCH ×4 (08:45→20:48)
[2017-06-08] MEDS: methylPREDNISolone SOD SUC 40 MG/1 ML VIAL IV SCH ×3 (08:46→23:22)
[2017-06-08] MEDS: OSELTAMIVIR 75 MG CAPSULE PO SCH ×2 (08:46→20:47)
[2017-06-08] MEDS: MONTELUKAST 10 MG TABLET PO SCH (08:46)
[2017-06-08] MEDS: PROPYLTHIOURACIL 50 MG TABLET PO SCH ×3 (08:46→20:47)
[2017-06-08] MEDS: PANTOPRAZOLE 40 MG TABLET PO SCH (08:46)
[2017-06-08] MEDS: MULTIVITAMIN (CENTRUM) TABLET PO SCH (08:46)
[2017-06-08] MEDS: POTASSIUM CHLORIDE 20 MEQ TABLET PO SCH (08:46)
[2017-06-08] MEDS: METOPROLOL SUCCINATE XL 50 MG TABLET PO SCH (08:46)
[2017-06-08] MEDS: APIXABAN 5 MG TABLET PO SCH ×2 (08:47→20:47)
[2017-06-08] MEDS: SPIRONOLACTONE 25 MG TABLET PO SCH (08:47)
[2017-06-08] MEDS: ESCITALOPRAM 10 MG TABLET PO SCH (08:47)
[2017-06-08] MEDS: FUROSEMIDE 40 MG TABLET PO SCH ×2 (08:47→15:20)
[2017-06-08 08:50] LABS: Calcium 6.8 MG/DL (8.5-10.1); Potassium 3.8 MMOL/L (3.5-5.1)
[2017-06-08] MEDS: INSULIN GLARGINE 100 UNIT/ML SUBCUT SCH (08:56)
[2017-06-08 12:13] LABS: Band Neutrophils 1 % (0-10); Hypochromasia Slight; Lymphocytes 23 % (20-55); Microcytosis Slight; Platelet Estimate Adequate; Polychromasia Slight; Segmented Neutrophils 71 % (50-85); Total Cells Counted 100
[2017-06-08] MEDS: DORNASE ALFA 2.5 MG/2.5 ML VIAL RESP TX SCH ×2 (13:15→19:40)
[2017-06-08] MEDS: LOPERAMIDE 0.2 MG/ML 30 ML/BOTTLE PO PRN (20:42)
[2017-06-08] MEDS: DILTIAZEM CD 120 MG CAPSULE PO SCH (20:43)
[2017-06-08] MEDS: GABAPENTIN 600 MG TABLET PO SCH (20:47)
[2017-06-08] MEDS: ISOSORBIDE MONONITRATE 30 MG TABLET PO SCH (20:48)
[2017-06-08] MEDS: AMINOPHYLLINE 500 MG in SODIUM CHLORIDE 0.9% 480 ML IV SCH (20:48)
[2017-06-09] MEDS: ALBUTEROL/IPRATROPIUM 3 ML NEB RESP TX SCH ×4 (01:20→19:37)
[2017-06-09] MEDS: PIPERACILLIN/TAZOBACTAM 3,375 MG in SODIUM CHLORIDE 0.9% 100 ML IV SCH ×3 (03:14→18:18)
[2017-06-09] MEDS: LOPERAMIDE 0.2 MG/ML 30 ML/BOTTLE PO PRN (03:17)
[2017-06-09 06:40] LABS: Basophils % 0.1 % (0.0-0.8); Hematocrit 34.9 VOL% (35.7-47.0); Hemoglobin 11.5 GM/DL (12.0-16.0); Immature Granulocytes % 1.1 %; Immature Granulocytes Absolute 0.32 #; Lymphocytes # 9.6 10*3/uL (1.4-4.0); Lymphocytes % 31.8 % (21.3-54.2); Mean Corpuscular Hemoglobin 26 PG (27-34); Mean Corpuscular Volume 80.2 FL (87-102); Mean Platelet Volume 11.1 FL (9.6-12.0); Monocytes # 0.7 10*3/uL (0.11-0.8); Monocytes % 2.4 % (1.7-12.7); Neutrophils # 19.6 10*3/uL (1.4-7.4); Neutrophils % 64.6 % (38.7-73.9); Platelet Count 289 T/CUMM (130-400); Red Blood Count 4.35 MC/CUMM (3.8-5.5); Red Cell Distribution Width 15.9 % (9.3-17.3); White Blood Count 30.3 T/CUMM (4-12)
[2017-06-09] MEDS: DORNASE ALFA 2.5 MG/2.5 ML VIAL RESP TX SCH ×2 (07:01→19:42)
[2017-06-09 07:06] LABS: Calcium 6.9 MG/DL (8.5-10.1); Osmolality,Calculated 291.5 MOS/KG (273-304); Potassium 2.8 MMOL/L (3.5-5.1)
[2017-06-09 07:08] LABS: Hypochromasia Slight; Lymphocytes 17 % (20-55); Macrocytosis 1+; Platelet Estimate Adequate; Segmented Neutrophils 82 % (50-85); Total Cells Counted 100
[2017-06-09] MEDS: INSULIN GLARGINE 100 UNIT/ML SUBCUT SCH (08:24)
[2017-06-09] MEDS: INSULIN LISPRO 100 UNIT/ML SUBCUT SCH ×4 (08:25→21:38)
[2017-06-09] MEDS: APIXABAN 5 MG TABLET PO SCH ×2 (08:25→21:37)
[2017-06-09] MEDS: methylPREDNISolone SOD SUC 40 MG/1 ML VIAL IV SCH ×2 (08:25→14:59)
[2017-06-09] MEDS: MONTELUKAST 10 MG TABLET PO SCH (08:25)
[2017-06-09] MEDS: MULTIVITAMIN (CENTRUM) TABLET PO SCH (08:25)
[2017-06-09] MEDS: FUROSEMIDE 40 MG TABLET PO SCH ×2 (08:26→17:03)
[2017-06-09] MEDS: POTASSIUM CHLORIDE 20 MEQ TABLET PO SCH (08:26)
[2017-06-09] MEDS: PANTOPRAZOLE 40 MG TABLET PO SCH (08:26)
[2017-06-09] MEDS: PROPYLTHIOURACIL 50 MG TABLET PO SCH ×2 (08:26→15:00)
[2017-06-09] MEDS: ESCITALOPRAM 10 MG TABLET PO SCH (08:26)
[2017-06-09] MEDS: SPIRONOLACTONE 25 MG TABLET PO SCH (08:26)
[2017-06-09] MEDS: METOPROLOL SUCCINATE XL 50 MG TABLET PO SCH (08:26)
[2017-06-09] MEDS: ZINC OXIDE PASTE 113 GM TUBE TOP SCH ×2 (08:26→21:39)
[2017-06-09] MEDS: OSELTAMIVIR 75 MG CAPSULE PO SCH ×2 (08:26→21:38)
[2017-06-09] MEDS ORDERED: POTASSIUM CHLORIDE 20 MEQ TABLET PO ONE (10:25)
[2017-06-09] MEDS: THEOPHYLLINE ER (24 HR) 200 MG CAPSULE PO SCH ×2 (10:44→17:03)
[2017-06-09] MEDS: LOPERAMIDE 2 MG CAPSULE PO PRN ×2 (10:52→21:38)
[2017-06-09] MEDS: VANCOMYCIN INJ 1,750 MG in SODIUM CHLORIDE 0.9% 500 ML IV SCH (11:46)
[2017-06-09] MEDS: DILTIAZEM CD 120 MG CAPSULE PO SCH (21:37)
[2017-06-09] MEDS: GABAPENTIN 600 MG TABLET PO SCH (21:38)
[2017-06-09] MEDS: ISOSORBIDE MONONITRATE 30 MG TABLET PO SCH (21:38)
[2017-06-10] MEDS: ALBUTEROL/IPRATROPIUM 3 ML NEB RESP TX SCH ×4 (00:04→20:31)
[2017-06-10] MEDS: methylPREDNISolone SOD SUC 40 MG/1 ML VIAL IV SCH ×4 (00:35→23:53)
[2017-06-10] MEDS: PIPERACILLIN/TAZOBACTAM 3,375 MG in SODIUM CHLORIDE 0.9% 100 ML IV SCH ×3 (04:38→18:35)
[2017-06-10 06:57] LABS: Calcium 7.3 MG/DL (8.5-10.1); Osmolality,Calculated 289.4 MOS/KG (273-304); Potassium 3.2 MMOL/L (3.5-5.1)
[2017-06-10] MEDS: DORNASE ALFA 2.5 MG/2.5 ML VIAL RESP TX SCH ×2 (07:52→20:38)
[2017-06-10] MEDS: INSULIN LISPRO 100 UNIT/ML SUBCUT SCH ×4 (08:57→21:40)
[2017-06-10] MEDS: INSULIN GLARGINE 100 UNIT/ML SUBCUT SCH (08:58)
[2017-06-10] MEDS: POTASSIUM CHLORIDE 20 MEQ TABLET PO SCH (08:59)
[2017-06-10] MEDS: OSELTAMIVIR 75 MG CAPSULE PO SCH ×2 (08:59→21:39)
[2017-06-10] MEDS: MONTELUKAST 10 MG TABLET PO SCH (08:59)
[2017-06-10] MEDS: ESCITALOPRAM 10 MG TABLET PO SCH (08:59)
[2017-06-10] MEDS: FUROSEMIDE 40 MG TABLET PO SCH ×2 (08:59→16:48)
[2017-06-10] MEDS: SPIRONOLACTONE 25 MG TABLET PO SCH (08:59)
[2017-06-10] MEDS: LOPERAMIDE 2 MG CAPSULE PO PRN ×2 (08:59→21:54)
[2017-06-10] MEDS: THEOPHYLLINE ER (24 HR) 200 MG CAPSULE PO SCH ×2 (08:59→16:47)
[2017-06-10] MEDS: APIXABAN 5 MG TABLET PO SCH ×2 (08:59→21:39)
[2017-06-10] MEDS: METOPROLOL SUCCINATE XL 50 MG TABLET PO SCH (08:59)
[2017-06-10] MEDS: MULTIVITAMIN (CENTRUM) TABLET PO SCH (08:59)
[2017-06-10] MEDS: PANTOPRAZOLE 40 MG TABLET PO SCH (08:59)
[2017-06-10] MEDS: ZINC OXIDE PASTE 113 GM TUBE TOP SCH ×2 (09:00→22:08)
[2017-06-10] MEDS ORDERED: FUROSEMIDE 40 MG/4 ML VIAL IV SCH (09:00)
[2017-06-10] MEDS: VANCOMYCIN INJ 1,750 MG in SODIUM CHLORIDE 0.9% 500 ML IV SCH (11:52)
[2017-06-10] MEDS: FUROSEMIDE 40 MG/4 ML VIAL IV SCH (17:46)
[2017-06-10] MEDS: ISOSORBIDE MONONITRATE 30 MG TABLET PO SCH (21:37)
[2017-06-10] MEDS: DILTIAZEM CD 120 MG CAPSULE PO SCH (21:38)
[2017-06-10] MEDS: GABAPENTIN 600 MG TABLET PO SCH (21:39)
[2017-06-11] MEDS: ALBUTEROL/IPRATROPIUM 3 ML NEB RESP TX SCH ×5 (00:49→23:48)
[2017-06-11] MEDS: PIPERACILLIN/TAZOBACTAM 3,375 MG in SODIUM CHLORIDE 0.9% 100 ML IV SCH ×3 (03:57→18:43)
[2017-06-11 06:29] LABS: Basophils # 0.1 10*3/uL (0.0-0.2); Basophils % 0.2 % (0.0-0.8); Hematocrit 34.2 VOL% (35.7-47.0); Hemoglobin 10.9 GM/DL (12.0-16.0); Immature Granulocytes Absolute 0.31 #; Lymphocytes # 12.2 10*3/uL (1.4-4.0); Lymphocytes % 39.8 % (21.3-54.2); Mean Corpuscular HGB Conc 31.9 GM/DL (32-36); Mean Corpuscular Hemoglobin 26 PG (27-34); Mean Corpuscular Volume 81.4 FL (87-102); Mean Platelet Volume 10.9 FL (9.6-12.0); Monocytes # 0.7 10*3/uL (0.11-0.8); Monocytes % 2.1 % (1.7-12.7); Neutrophils # 17.5 10*3/uL (1.4-7.4); Neutrophils % 56.9 % (38.7-73.9); Platelet Count 267 T/CUMM (130-400); Red Cell Distribution Width 15.9 % (9.3-17.3); White Blood Count 30.7 T/CUMM (4-12)
[2017-06-11 06:52] LABS: Lymphocytes 24 % (20-55); Segmented Neutrophils 73 % (50-85); Total Cells Counted 100
[2017-06-11 06:53] LABS: Giant Platelets Few; Hypochromasia 1+; Microcytosis Slight; Ovalocytes Slight; Platelet Estimate Adequate; Smudge Cells Few
[2017-06-11 06:56] LABS: Calcium 7.7 MG/DL (8.5-10.1); Osmolality,Calculated 287.8 MOS/KG (273-304); Potassium 2.8 MMOL/L (3.5-5.1)
[2017-06-11] MEDS: DORNASE ALFA 2.5 MG/2.5 ML VIAL RESP TX SCH ×2 (07:52→20:03)
[2017-06-11] MEDS: MULTIVITAMIN (CENTRUM) TABLET PO SCH (09:30)
[2017-06-11] MEDS: MONTELUKAST 10 MG TABLET PO SCH (09:30)
[2017-06-11] MEDS: ESCITALOPRAM 10 MG TABLET PO SCH (09:31)
[2017-06-11] MEDS: POTASSIUM CHLORIDE 20 MEQ TABLET PO SCH (09:31)
[2017-06-11] MEDS: methylPREDNISolone SOD SUC 40 MG/1 ML VIAL IV SCH ×2 (09:31→16:44)
[2017-06-11] MEDS: OSELTAMIVIR 75 MG CAPSULE PO SCH ×2 (09:31→21:31)
[2017-06-11] MEDS: APIXABAN 5 MG TABLET PO SCH ×2 (09:31→21:35)
[2017-06-11] MEDS: SPIRONOLACTONE 25 MG TABLET PO SCH (09:31)
[2017-06-11] MEDS: THEOPHYLLINE ER (24 HR) 200 MG CAPSULE PO SCH ×2 (09:31→16:44)
[2017-06-11] MEDS: METOPROLOL SUCCINATE XL 50 MG TABLET PO SCH (09:31)
[2017-06-11] MEDS: PANTOPRAZOLE 40 MG TABLET PO SCH (09:31)
[2017-06-11] MEDS: INSULIN GLARGINE 100 UNIT/ML SUBCUT SCH (09:32)
[2017-06-11] MEDS: INSULIN LISPRO 100 UNIT/ML SUBCUT SCH ×4 (09:32→21:32)
[2017-06-11] MEDS: FUROSEMIDE 40 MG/4 ML VIAL IV SCH ×2 (09:32→16:43)
[2017-06-11] MEDS: LOPERAMIDE 2 MG CAPSULE PO PRN ×3 (09:50→21:29)
[2017-06-11] MEDS: ZINC OXIDE PASTE 113 GM TUBE TOP SCH ×2 (10:07→21:33)
[2017-06-11 12:00] LABS: % Iron Saturation 22.9 % (18-50)
[2017-06-11 12:18] LABS: Folate 11.2 NG/ML (5.4-24.0)
[2017-06-11 12:32] LABS: ABG Base Excess 7.2 MMOL/L (-2.5-2.5); ABG HCO3 30.4 MMOL/L (20-26); ABG Oxygen Saturation 70.1 % (95-100); ABG PCO2 41.3 MM HG (35-48); ABG PH 7.487 (7.35-7.45); ABG TCO2 27.9 MMOL/L (23-27)
[2017-06-11 12:41] LABS: ABG PO2 37.1 MM HG (80-95)
[2017-06-11 14:27] LABS: ABG Base Excess 6.8 MMOL/L (-2.5-2.5); ABG Oxygen Saturation 66.7 % (95-100); ABG PCO2 40.1 MM HG (35-48); ABG PH 7.492 (7.35-7.45); ABG TCO2 27.4 MMOL/L (23-27)
[2017-06-11 14:33] LABS: ABG PO2 34.9 MM HG (80-95)
[2017-06-11] MEDS: FLUCONAZOLE INJ 400 MG in PREMIX 1 EACH IV SCH (16:43)
[2017-06-11] MEDS ORDERED: POTASSIUM CHLORIDE 20 MEQ TABLET PO SCH (19:00)
[2017-06-11] MEDS: DILTIAZEM CD 120 MG CAPSULE PO SCH (21:30)
[2017-06-11] MEDS: GABAPENTIN 600 MG TABLET PO SCH (21:31)
[2017-06-11] MEDS: ISOSORBIDE MONONITRATE 30 MG TABLET PO SCH (21:32)
[2017-06-12] MEDS: methylPREDNISolone SOD SUC 40 MG/1 ML VIAL IV SCH ×3 (00:48→15:17)
[2017-06-12] MEDS: PIPERACILLIN/TAZOBACTAM 3,375 MG in SODIUM CHLORIDE 0.9% 100 ML IV SCH ×2 (03:24→10:52)
[2017-06-12 06:58] LABS: Basophils # 0.1 10*3/uL (0.0-0.2); Basophils % 0.2 % (0.0-0.8); Hematocrit 38.1 VOL% (35.7-47.0); Hemoglobin 12.1 GM/DL (12.0-16.0); Immature Granulocytes % 1.3 %; Immature Granulocytes Absolute 0.49 #; Lymphocytes # 14.7 10*3/uL (1.4-4.0); Lymphocytes % 38.7 % (21.3-54.2); Mean Corpuscular HGB Conc 31.8 GM/DL (32-36); Mean Corpuscular Hemoglobin 26 PG (27-34); Mean Corpuscular Volume 83.2 FL (87-102); Mean Platelet Volume 11.2 FL (9.6-12.0); Monocytes # 0.5 10*3/uL (0.11-0.8); Monocytes % 1.4 % (1.7-12.7); Neutrophils # 22.2 10*3/uL (1.4-7.4); Neutrophils % 58.4 % (38.7-73.9); Platelet Count 306 T/CUMM (130-400); Red Blood Count 4.58 MC/CUMM (3.8-5.5); Red Cell Distribution Width 16.4 % (9.3-17.3)
[2017-06-12 07:20] LABS: Calcium 8.4 MG/DL (8.5-10.1); Osmolality,Calculated 287.8 MOS/KG (273-304); Potassium 2.9 MMOL/L (3.5-5.1)
[2017-06-12 07:35] LABS: Hypochromasia 1+; Lymphocytes 22 % (20-55); Platelet Estimate Increased; Polychromasia Slight; Segmented Neutrophils 78 % (50-85); Smudge Cells Few; Total Cells Counted 100
[2017-06-12] MEDS: POTASSIUM CHLORIDE 20 MEQ TABLET PO SCH (08:24)
[2017-06-12] MEDS: SPIRONOLACTONE 25 MG TABLET PO SCH (08:24)
[2017-06-12] MEDS: OSELTAMIVIR 75 MG CAPSULE PO SCH (08:24)
[2017-06-12] MEDS: PANTOPRAZOLE 40 MG TABLET PO SCH (08:24)
[2017-06-12] MEDS: ESCITALOPRAM 10 MG TABLET PO SCH (08:24)
[2017-06-12] MEDS: THEOPHYLLINE ER (24 HR) 200 MG CAPSULE PO SCH ×2 (08:24→16:06)
[2017-06-12] MEDS: METOPROLOL SUCCINATE XL 50 MG TABLET PO SCH (08:24)
[2017-06-12] MEDS: MONTELUKAST 10 MG TABLET PO SCH (08:25)
[2017-06-12] MEDS: INSULIN GLARGINE 100 UNIT/ML SUBCUT SCH (08:25)
[2017-06-12] MEDS: INSULIN LISPRO 100 UNIT/ML SUBCUT SCH ×3 (08:25→16:06)
[2017-06-12] MEDS: FUROSEMIDE 40 MG/4 ML VIAL IV SCH ×2 (08:25→15:18)
[2017-06-12] MEDS: MULTIVITAMIN (CENTRUM) TABLET PO SCH (08:25)
[2017-06-12] MEDS: APIXABAN 5 MG TABLET PO SCH (08:25)
[2017-06-12] MEDS: ZINC OXIDE PASTE 113 GM TUBE TOP SCH (09:26)
[2017-06-12] MEDS: ALBUTEROL/IPRATROPIUM 3 ML NEB RESP TX SCH ×2 (09:45→15:00)
[2017-06-12] MEDS: DORNASE ALFA 2.5 MG/2.5 ML VIAL RESP TX SCH (09:45)
[2017-06-12] MEDS ORDERED: POTASSIUM CHLORIDE 20 MEQ TABLET PO ONE (13:33)
[2017-06-12] MEDS: FLUCONAZOLE INJ 400 MG in PREMIX 1 EACH IV SCH (15:17)
[2017-06-12 15:38] VITALS: BP 135/62
== END 2017-06-12 17:04 | disposition home or self-care (01) | DRG 871 ==
LOC: EDUNIT# → EDBD → N.ED 12:01 → N.EDINP 16:16 → SUATTDRO 16:16 → N.5E 18:10
PROVIDERS: ADMIT Internal Medicine; ATTEND Family Medicine

== ENCOUNTER 2017-06-13 08:55 | Inpatient (IN) ==
[2017-06-13] MEDS ORDERED: ONDANSETRON 4 MG/2 ML VIAL IV PRN (10:54)
[2017-06-13] MEDS ORDERED: ALBUTEROL/IPRATROPIUM 3 ML NEB RESP TX PRN (10:59)
[2017-06-13] MEDS ORDERED: DEXTROSE 50% 25 GM/50 ML VIAL IV PRN (11:48)
[2017-06-13] MEDS ORDERED: GLUCAGON 1 MG VIAL IM PRN (11:48)
[2017-06-13 12:08] LABS: Apearance,Urine CLEAR (Clear); Bacteria,Urine Occasional /HPF (Few); Bilirubin,Urine Negative (Negative); Blood, Urine Negative (Negative); Glucose,Urine (UA) Negative (Negative); Hyaline Casts,Urine 3 /LPF (0-3); Ketones,Urine Negative (Negative); Mucus,Urine Occasional /LPF (Occasional); Nitrite,Urine Negative (Negative); Protein,Urine Negative; RBC,Urine 1 /HPF (0-4); Squamous Epithelial Cell,Urine Occasional /HPF (0-10); Urine Color Straw (Yellow); Urine Specific Gravity 1.006 (1.001-1.035); Urine Urobilinogen < 2.0 EU/DL (0.2-1.0); WBC,Urine 1 /HPF (0-6)
[2017-06-13] MEDS: MIDAZOLAM 100 MG in SODIUM CHLORIDE 0.9% 80 ML IV SCH (12:42)
[2017-06-13] MEDS ORDERED: DILTIAZEM 60 MG TABLET PO SCH (13:00)
[2017-06-13 13:12] LABS: Pt O2 Delivery Device Ventilator
[2017-06-13 13:13] LABS: ABG Base Excess 7.1 MMOL/L (-2.5-2.5); ABG HCO3 30.8 MMOL/L (20-26); ABG Oxygen Saturation 96.3 % (95-100); ABG PCO2 54.3 MM HG (35-48); ABG PH 7.397 (7.35-7.45); ABG PO2 90.7 MM HG (80-95); ABG TCO2 30.1 MMOL/L (23-27)
[2017-06-13] MEDS: INSULIN REGULAR 100 UNIT/ML SUBCUT SCH ×2 (13:53→18:02)
[2017-06-13] MEDS: LEVOFLOXACIN INJ 500 MG in PREMIX 1 EACH IV SCH (14:04)
[2017-06-13] MEDS: metOLazone 2.5 MG TABLET PO SCH (17:00)
[2017-06-13] MEDS: FUROSEMIDE 40 MG/4 ML VIAL IV SCH (17:46)
[2017-06-13] MEDS: DILTIAZEM 90 MG TABLET PO SCH ×3 (17:47→22:44)
[2017-06-13] MEDS: methylPREDNISolone SOD SUC 40 MG/1 ML VIAL IV SCH (17:49)
[2017-06-13 18:43] LABS: ABG Base Excess 9.6 MMOL/L (-2.5-2.5); ABG HCO3 33.1 MMOL/L (20-26); ABG Oxygen Saturation 97.8 % (95-100); ABG PCO2 40.6 MM HG (35-48); ABG PH 7.529 (7.35-7.45); ABG PO2 112.2 MM HG (80-95); ABG TCO2 34.3 MMOL/L (23-27); Pt O2 Delivery Device Ventilator
[2017-06-13] MEDS ORDERED: GABAPENTIN 600 MG TABLET PO SCH (21:00)
[2017-06-13] MEDS ORDERED: DILTIAZEM CD 180 MG CAPSULE PO SCH (21:00)
[2017-06-13] MEDS: NON-FORMULARY MEDICATION (Mirabegron [Myrbetriq] 50 MG) PO SCH (22:06)
[2017-06-13] MEDS: PRAMIPEXOLE 0.25 MG TABLET PO SCH (22:45)
[2017-06-13] MEDS: APIXABAN 5 MG TABLET PO SCH (22:45)
[2017-06-13] MEDS: ISOSORBIDE MONONITRATE 30 MG TABLET PO SCH (22:47)
[2017-06-13] MEDS: GABAPENTIN 50 MG/ML 30 ML/BOTTLE PO SCH (22:55)
[2017-06-14] MEDS: INSULIN REGULAR 100 UNIT/ML SUBCUT SCH ×4 (00:33→18:28)
[2017-06-14] MEDS: methylPREDNISolone SOD SUC 40 MG/1 ML VIAL IV SCH ×3 (00:37→17:05)
[2017-06-14 03:49] LABS: ABG Base Excess 11.7 MMOL/L (-2.5-2.5); ABG HCO3 35.4 MMOL/L (20-26); ABG Oxygen Saturation 96.3 % (95-100); ABG PCO2 42.3 MM HG (35-48); ABG PO2 86.7 MM HG (80-95); ABG TCO2 36.7 MMOL/L (23-27)
[2017-06-14 05:41] LABS: Basophils # 0.1 10*3/uL (0.0-0.2); Basophils % 0.1 % (0.0-0.8); Hematocrit 32.5 VOL% (35.7-47.0); Hemoglobin 10.5 GM/DL (12.0-16.0); Immature Granulocytes % 1.3 %; Immature Granulocytes Absolute 0.47 #; Lymphocytes # 15.2 10*3/uL (1.4-4.0); Lymphocytes % 42.1 % (21.3-54.2); Mean Corpuscular HGB Conc 32.3 GM/DL (32-36); Mean Corpuscular Hemoglobin 26 PG (27-34); Mean Corpuscular Volume 80.4 FL (87-102); Mean Platelet Volume 11.3 FL (9.6-12.0); Monocytes # 0.2 10*3/uL (0.11-0.8); Monocytes % 0.6 % (1.7-12.7); NRBC # 0.02 10*3/uL; Neutrophils # 20.2 10*3/uL (1.4-7.4); Neutrophils % 55.9 % (38.7-73.9); Platelet Count 227 T/CUMM (130-400); Red Blood Count 4.04 MC/CUMM (3.8-5.5); Red Cell Distribution Width 16.1 % (9.3-17.3); White Blood Count 36.1 T/CUMM (4-12)
[2017-06-14] MEDS: PIPERACILLIN/TAZOBACTAM 3,375 MG in SODIUM CHLORIDE 0.9% 100 ML IV SCH ×3 (06:44→21:32)
[2017-06-14] MEDS: MIDAZOLAM 100 MG in SODIUM CHLORIDE 0.9% 80 ML IV SCH ×2 (06:45→17:15)
[2017-06-14 06:51] LABS: Band Neutrophils 1 % (0-10); Lymphocytes 23 % (20-55); Segmented Neutrophils 76 % (50-85); Total Cells Counted 100
[2017-06-14 06:52] LABS: Anisocytosis 1+; Hypochromasia Slight
[2017-06-14 06:53] LABS: Albumin 2.5 G/DL (3.4-5.0); Calcium 8.2 MG/DL (8.5-10.1); Osmolality,Calculated 300.3 MOS/KG (273-304); Potassium 3.2 MMOL/L (3.5-5.1); Risk Ratio 2.04; Thyroid Stimulating Hormone 0.023 uIU/ml (0.358-3.74); Total Protein 5.3 G/DL (6.4-8.3); VLDL CHOLESTEROL 14.2 MG/DL
[2017-06-14] MEDS: POTASSIUM CHLORIDE 20 MEQ/15 ML UDCUP PER TUBE PRN ×4 (08:59→17:00)
[2017-06-14] MEDS: FUROSEMIDE 40 MG/4 ML VIAL IV SCH ×2 (08:59→17:05)
[2017-06-14] MEDS: FLUCONAZOLE 200 MG TABLET PO SCH (08:59)
[2017-06-14] MEDS: POTASSIUM CHLORIDE 20 MEQ TABLET PO SCH (09:00)
[2017-06-14] MEDS: APIXABAN 5 MG TABLET PO SCH ×2 (09:00→21:16)
[2017-06-14] MEDS: metOLazone 2.5 MG TABLET PO SCH (09:00)
[2017-06-14] MEDS: MULTIVITAMIN (CENTRUM) TABLET PO SCH (09:00)
[2017-06-14] MEDS ORDERED: METOPROLOL SUCCINATE XL 50 MG TABLET PO SCH (09:00)
[2017-06-14] MEDS: SPIRONOLACTONE 50 MG TABLET PO SCH (09:00)
[2017-06-14] MEDS: MONTELUKAST 10 MG TABLET PO SCH (09:00)
[2017-06-14] MEDS: DILTIAZEM 90 MG TABLET PO SCH ×4 (09:00→21:14)
[2017-06-14] MEDS: ESCITALOPRAM 10 MG TABLET PO SCH (09:00)
[2017-06-14] MEDS: METOPROLOL TARTRATE 25 MG TABLET PO SCH ×2 (09:13→22:14)
[2017-06-14] MEDS: LEVOFLOXACIN INJ 500 MG in PREMIX 1 EACH IV SCH (12:21)
[2017-06-14] MEDS ORDERED: ASCORBIC ACID 500 MG/1 ML VIAL IV SCH (13:00)
[2017-06-14] MEDS: ASCORBIC ACID IV SCH (17:04)
[2017-06-14] MEDS: SODIUM CHLORIDE 0.9% IV SCH (17:04)
[2017-06-14] MEDS: NON-FORMULARY MEDICATION (Mirabegron [Myrbetriq] 50 MG) PO SCH (21:12)
[2017-06-14] MEDS: GABAPENTIN 50 MG/ML 30 ML/BOTTLE PO SCH (21:16)
[2017-06-14] MEDS: PRAMIPEXOLE 0.25 MG TABLET PO SCH (21:16)
[2017-06-14] MEDS: ISOSORBIDE MONONITRATE 30 MG TABLET PO SCH (21:16)
[2017-06-15] MEDS: INSULIN REGULAR 100 UNIT/ML SUBCUT SCH ×4 (01:12→18:04)
[2017-06-15] MEDS: methylPREDNISolone SOD SUC 40 MG/1 ML VIAL IV SCH ×3 (01:12→15:30)
[2017-06-15 04:00] LABS: ABG Base Excess 17.9 MMOL/L (-2.5-2.5); ABG Oxygen Saturation 91.4 % (95-100); ABG PCO2 54.9 MM HG (35-48); ABG PH 7.513 (7.35-7.45); ABG PO2 61.1 MM HG (80-95); ABG TCO2 39.6 MMOL/L (23-27)
[2017-06-15 04:53] LABS: Basophils # 0.1 10*3/uL (0.0-0.2); Basophils % 0.2 % (0.0-0.8); Hematocrit 32.8 VOL% (35.7-47.0); Hemoglobin 10.5 GM/DL (12.0-16.0); Immature Granulocytes % 0.9 %; Immature Granulocytes Absolute 0.32 #; Lymphocytes # 16.6 10*3/uL (1.4-4.0); Lymphocytes % 47.2 % (21.3-54.2); Mean Corpuscular Hemoglobin 26 PG (27-34); Mean Platelet Volume 11.5 FL (9.6-12.0); Monocytes # 0.3 10*3/uL (0.11-0.8); Monocytes % 0.9 % (1.7-12.7); NRBC # 0.03 10*3/uL; Neutrophils # 17.9 10*3/uL (1.4-7.4); Neutrophils % 50.8 % (38.7-73.9); Platelet Count 230 T/CUMM (130-400); White Blood Count 35.1 T/CUMM (4-12)
[2017-06-15 05:14] LABS: Giant Platelets Few; Hypochromasia 1+; Platelet Estimate Adequate
[2017-06-15 05:42] LABS: Prealbumin 14.4 MG/DL (20-40)
[2017-06-15 05:54] LABS: Calcium 8.3 MG/DL (8.5-10.1); Osmolality,Calculated 303.3 MOS/KG (273-304); Potassium 3.5 MMOL/L (3.5-5.1)
[2017-06-15] MEDS: MIDAZOLAM 100 MG in SODIUM CHLORIDE 0.9% 80 ML IV SCH ×2 (06:04→17:59)
[2017-06-15] MEDS: PIPERACILLIN/TAZOBACTAM 3,375 MG in SODIUM CHLORIDE 0.9% 100 ML IV SCH ×3 (06:17→21:48)
[2017-06-15] MEDS: POTASSIUM CHLORIDE 20 MEQ/15 ML UDCUP PER TUBE PRN ×2 (07:05→09:52)
[2017-06-15] MEDS: FUROSEMIDE 40 MG/4 ML VIAL IV SCH ×2 (08:46→15:30)
[2017-06-15] MEDS: SPIRONOLACTONE 50 MG TABLET PO SCH (09:52)
[2017-06-15] MEDS: FLUCONAZOLE 200 MG TABLET PO SCH (09:52)
[2017-06-15] MEDS: MULTIVITAMIN (CENTRUM) TABLET PO SCH (09:52)
[2017-06-15] MEDS: MONTELUKAST 10 MG TABLET PO SCH (09:52)
[2017-06-15] MEDS: ESCITALOPRAM 10 MG TABLET PO SCH (09:52)
[2017-06-15] MEDS: APIXABAN 5 MG TABLET PO SCH ×2 (09:52→21:33)
[2017-06-15] MEDS: metOLazone 2.5 MG TABLET PO SCH (09:53)
[2017-06-15] MEDS: POTASSIUM CHLORIDE 20 MEQ TABLET PO SCH (09:53)
[2017-06-15] MEDS: METOPROLOL TARTRATE 25 MG TABLET PO SCH ×3 (10:32→21:33)
[2017-06-15] MEDS: DILTIAZEM 90 MG TABLET PO SCH (10:46)
[2017-06-15] MEDS: LEVOFLOXACIN INJ 500 MG in PREMIX 1 EACH IV SCH (10:53)
[2017-06-15 11:03] LABS: ABG Base Excess 19.6 MMOL/L (-2.5-2.5); ABG HCO3 43.9 MMOL/L (20-26); ABG Oxygen Saturation 92.7 % (95-100); ABG PCO2 47.5 MM HG (35-48); ABG PH 7.581 (7.35-7.45); ABG PO2 61.3 MM HG (80-95); ABG TCO2 39.8 MMOL/L (23-27)
[2017-06-15] MEDS: ASCORBIC ACID IV SCH (15:31)
[2017-06-15] MEDS: SODIUM CHLORIDE 0.9% IV SCH (15:31)
[2017-06-15] MEDS ORDERED: Mirabegron [Myrbetriq] 50 MG PO SCH (21:00)
[2017-06-15] MEDS: ISOSORBIDE MONONITRATE 30 MG TABLET PO SCH (21:32)
[2017-06-15] MEDS: PRAMIPEXOLE 0.25 MG TABLET PO SCH (21:33)
[2017-06-15] MEDS: GABAPENTIN 50 MG/ML 30 ML/BOTTLE PO SCH (21:34)
[2017-06-15] MEDS ORDERED: SODIUM CHLORIDE 0.9% 100 ML IV ONE (21:44)
[2017-06-16] MEDS: methylPREDNISolone SOD SUC 40 MG/1 ML VIAL IV SCH ×3 (00:14→15:14)
[2017-06-16] MEDS: INSULIN REGULAR 100 UNIT/ML SUBCUT SCH ×4 (00:17→18:24)
[2017-06-16] MEDS: MIDAZOLAM 100 MG in SODIUM CHLORIDE 0.9% 80 ML IV SCH ×2 (04:40→21:07)
[2017-06-16 04:47] LABS: ABG Base Excess 18.5 MMOL/L (-2.5-2.5); ABG HCO3 42.4 MMOL/L (20-26); ABG Oxygen Saturation 95.7 % (95-100); ABG PCO2 45.3 MM HG (35-48); ABG PH 7.589 (7.35-7.45); ABG PO2 79.6 MM HG (80-95); ABG TCO2 43.8 MMOL/L (23-27)
[2017-06-16 05:02] LABS: Basophils # 0.1 10*3/uL (0.0-0.2); Basophils % 0.2 % (0.0-0.8); Hematocrit 36.9 VOL% (35.7-47.0); Immature Granulocytes % 0.7 %; Immature Granulocytes Absolute 0.22 #; Lymphocytes # 17.1 10*3/uL (1.4-4.0); Lymphocytes % 54.1 % (21.3-54.2); Mean Corpuscular HGB Conc 32.5 GM/DL (32-36); Mean Corpuscular Hemoglobin 26 PG (27-34); Mean Corpuscular Volume 80.9 FL (87-102); Mean Platelet Volume 11.6 FL (9.6-12.0); Monocytes # 0.3 10*3/uL (0.11-0.8); NRBC # 0.03 10*3/uL; Neutrophils # 13.9 10*3/uL (1.4-7.4); Platelet Count 272 T/CUMM (130-400); Red Blood Count 4.56 MC/CUMM (3.8-5.5); Red Cell Distribution Width 16.8 % (9.3-17.3); White Blood Count 31.5 T/CUMM (4-12)
[2017-06-16 05:21] LABS: INR 1.2; Partial Thromboplastin Time 27.8 SECS (0-40)
[2017-06-16] MEDS: PIPERACILLIN/TAZOBACTAM 3,375 MG in SODIUM CHLORIDE 0.9% 100 ML IV SCH ×3 (06:01→21:54)
[2017-06-16 06:47] LABS: Hypochromasia 1+; Lymphocytes 51 % (20-55); Microcytosis 1+; Segmented Neutrophils 47 % (50-85); Total Cells Counted 100
[2017-06-16 06:48] LABS: Ovalocytes Slight; Platelet Estimate Normal; Smudge Cells Few
[2017-06-16] MEDS: FUROSEMIDE 40 MG/4 ML VIAL IV SCH ×2 (08:00→15:14)
[2017-06-16 09:11] LABS: Calcium 8.8 MG/DL (8.5-10.1); Osmolality,Calculated 308.3 MOS/KG (273-304); Potassium 3.8 MMOL/L (3.5-5.1)
[2017-06-16] MEDS: MULTIVITAMIN (CENTRUM) TABLET PO SCH (09:14)
[2017-06-16] MEDS: FLUCONAZOLE 200 MG TABLET PO SCH (09:14)
[2017-06-16] MEDS: MONTELUKAST 10 MG TABLET PO SCH (09:14)
[2017-06-16] MEDS: APIXABAN 5 MG TABLET PO SCH ×2 (09:15→21:55)
[2017-06-16] MEDS: metOLazone 2.5 MG TABLET PO SCH (09:15)
[2017-06-16] MEDS: ESCITALOPRAM 10 MG TABLET PO SCH (09:15)
[2017-06-16] MEDS: POTASSIUM CHLORIDE 20 MEQ TABLET PO SCH (09:15)
[2017-06-16] MEDS: SPIRONOLACTONE 50 MG TABLET PO SCH (09:15)
[2017-06-16] MEDS: METOPROLOL TARTRATE 25 MG TABLET PO SCH ×3 (09:16→21:55)
[2017-06-16] MEDS: POTASSIUM CHLORIDE 20 MEQ/15 ML UDCUP PER TUBE PRN (09:22)
[2017-06-16] MEDS: LEVOFLOXACIN INJ 500 MG in PREMIX 1 EACH IV SCH (11:23)
[2017-06-16] MEDS: ASCORBIC ACID IV SCH (15:15)
[2017-06-16] MEDS: SODIUM CHLORIDE 0.9% IV SCH (15:15)
[2017-06-16] MEDS: PRAMIPEXOLE 0.25 MG TABLET PO SCH (21:55)
[2017-06-16] MEDS: ISOSORBIDE MONONITRATE 30 MG TABLET PO SCH (21:55)
[2017-06-16] MEDS: GABAPENTIN 50 MG/ML 30 ML/BOTTLE PO SCH (21:58)
[2017-06-17] MEDS: methylPREDNISolone SOD SUC 40 MG/1 ML VIAL IV SCH ×4 (00:21→19:57)
[2017-06-17] MEDS: INSULIN REGULAR 100 UNIT/ML SUBCUT SCH ×4 (00:21→19:57)
[2017-06-17 03:48] LABS: ABG Base Excess 16.3 MMOL/L (-2.5-2.5); ABG HCO3 40.4 MMOL/L (20-26); ABG Oxygen Saturation 98.1 % (95-100); ABG PCO2 49.4 MM HG (35-48); ABG PH 7.535 (7.35-7.45); ABG TCO2 36.4 MMOL/L (23-27); Allen Test Positive; Pt O2 Delivery Device Ventilator
[2017-06-17 05:22] LABS: Calcium 8.6 MG/DL (8.5-10.1); Osmolality,Calculated 317.1 MOS/KG (273-304); Potassium 3.8 MMOL/L (3.5-5.1)
[2017-06-17] MEDS: PIPERACILLIN/TAZOBACTAM 3,375 MG in SODIUM CHLORIDE 0.9% 100 ML IV SCH (06:08)
[2017-06-17] MEDS: MULTIVITAMIN (CENTRUM) TABLET PO SCH (09:17)
[2017-06-17] MEDS: METOPROLOL TARTRATE 25 MG TABLET PO SCH ×3 (09:17→21:51)
[2017-06-17] MEDS: POTASSIUM CHLORIDE 20 MEQ TABLET PO SCH (09:17)
[2017-06-17] MEDS: MONTELUKAST 10 MG TABLET PO SCH (09:17)
[2017-06-17] MEDS: ESCITALOPRAM 10 MG TABLET PO SCH (09:18)
[2017-06-17] MEDS: APIXABAN 5 MG TABLET PO SCH ×2 (09:18→21:51)
[2017-06-17] MEDS: MIDAZOLAM 100 MG in SODIUM CHLORIDE 0.9% 80 ML IV SCH (14:49)
[2017-06-17] MEDS: ACETAMINOPHEN 325 MG TABLET PO PRN (20:55)
[2017-06-17] MEDS: GABAPENTIN 50 MG/ML 30 ML/BOTTLE PO SCH (21:51)
[2017-06-17] MEDS: ISOSORBIDE MONONITRATE 30 MG TABLET PO SCH (21:51)
[2017-06-17] MEDS: PRAMIPEXOLE 0.25 MG TABLET PO SCH (21:51)
[2017-06-17 22:40] LABS: Apearance,Urine CLEAR (Clear); Bilirubin,Urine Negative (Negative); Blood, Urine Negative (Negative); Glucose,Urine (UA) Negative (Negative); Ketones,Urine Negative (Negative); Mucus,Urine Occasional /LPF (Occasional); Nitrite,Urine Negative (Negative); Protein,Urine Negative; RBC,Urine 1 /HPF (0-4); Urine Color Yellow (Yellow); Urine Specific Gravity 1.016 (1.001-1.035); WBC,Urine 1 /HPF (0-6)
[2017-06-17 23:05] LABS: Creatinine,Urine Random 59 MG/DL; Total Protein,Urine Random 27 MG/DL; Urea Nitrogen, Urine Random 1309 MG/DL
[2017-06-18] MEDS: INSULIN REGULAR 100 UNIT/ML SUBCUT SCH ×4 (00:25→19:04)
[2017-06-18] MEDS: methylPREDNISolone SOD SUC 40 MG/1 ML VIAL IV SCH ×3 (01:36→15:31)
[2017-06-18 03:44] LABS: ABG PCO2 42.7 MM HG (35-48); ABG PH 7.493 (7.35-7.45); Allen Test Positive; Pt O2 Delivery Device Ventilator
[2017-06-18 03:45] LABS: ABG HCO3 32.2 MMOL/L (20-26)
[2017-06-18 03:46] LABS: ABG Base Excess 8.5 MMOL/L (-2.5-2.5); ABG Oxygen Saturation 98.1 % (95-100); ABG TCO2 28.7 MMOL/L (23-27)
[2017-06-18 06:13] LABS: Basophils # 0.1 10*3/uL (0.0-0.2); Basophils % 0.2 % (0.0-0.8); Hematocrit 39.5 VOL% (35.7-47.0); Hemoglobin 12.3 GM/DL (12.0-16.0); Immature Granulocytes % 0.7 %; Immature Granulocytes Absolute 0.23 #; Lymphocytes # 18.3 10*3/uL (1.4-4.0); Lymphocytes % 55.8 % (21.3-54.2); Mean Corpuscular HGB Conc 31.1 GM/DL (32-36); Mean Corpuscular Hemoglobin 26 PG (27-34); Mean Corpuscular Volume 82.8 FL (87-102); Mean Platelet Volume 11.8 FL (9.6-12.0); Monocytes # 0.6 10*3/uL (0.11-0.8); Monocytes % 1.8 % (1.7-12.7); NRBC # 0.02 10*3/uL; Neutrophils # 13.7 10*3/uL (1.4-7.4); Neutrophils % 41.5 % (38.7-73.9); Platelet Count 195 T/CUMM (130-400); Red Blood Count 4.77 MC/CUMM (3.8-5.5); Red Cell Distribution Width 17.2 % (9.3-17.3); White Blood Count 32.8 T/CUMM (4-12)
[2017-06-18 06:43] LABS: Prealbumin 26.1 MG/DL (20-40)
[2017-06-18 06:46] LABS: Albumin 2.8 G/DL (3.4-5.0); Bilirubin,Total 1.2 MG/DL (0.2-1.0); Calcium 8.7 MG/DL (8.5-10.1); Osmolality,Calculated 329.8 MOS/KG (273-304); Potassium 3.7 MMOL/L (3.5-5.1); Total Protein 6.3 G/DL (6.4-8.3)
[2017-06-18 06:58] LABS: Giant Platelets Few; Hypochromasia 1+; Lymphocytes 48 % (20-55); Ovalocytes Slight; Platelet Estimate Adequate; Segmented Neutrophils 51 % (50-85); Total Cells Counted 100
[2017-06-18 06:59] LABS: Atypical Lymphocytes Few; Microcytosis Slight; Smudge Cells Few
[2017-06-18] MEDS: SODIUM CHLORIDE 0.9% 1,000 ML IV SCH ×2 (07:00→15:35)
[2017-06-18] MEDS ORDERED: FUROSEMIDE 40 MG/4 ML VIAL IV SCH (08:00)
[2017-06-18] MEDS ORDERED: FUROSEMIDE 40 MG/4 ML VIAL IV ONE (08:11)
[2017-06-18] MEDS ORDERED: FUROSEMIDE 40 MG/4 ML VIAL ONE (10:13)
[2017-06-18] MEDS: METOPROLOL TARTRATE 25 MG TABLET PO SCH ×3 (10:55→22:09)
[2017-06-18] MEDS: MULTIVITAMIN (CENTRUM) TABLET PO SCH (10:55)
[2017-06-18] MEDS: POTASSIUM CHLORIDE 20 MEQ TABLET PO SCH (10:55)
[2017-06-18] MEDS: APIXABAN 5 MG TABLET PO SCH ×2 (10:55→22:09)
[2017-06-18] MEDS: MONTELUKAST 10 MG TABLET PO SCH (10:55)
[2017-06-18] MEDS: ESCITALOPRAM 10 MG TABLET PO SCH (10:56)
[2017-06-18] MEDS: MIDAZOLAM 100 MG in SODIUM CHLORIDE 0.9% 80 ML IV SCH (12:23)
[2017-06-18] MEDS ORDERED: INSULIN GLARGINE 100 UNIT/ML SUBCUT SCH (21:00)
[2017-06-18] MEDS: PRAMIPEXOLE 0.25 MG TABLET PO SCH (22:09)
[2017-06-18] MEDS: ISOSORBIDE MONONITRATE 30 MG TABLET PO SCH (22:09)
[2017-06-18] MEDS: GABAPENTIN 50 MG/ML 30 ML/BOTTLE PO SCH (22:10)
[2017-06-19] MEDS: methylPREDNISolone SOD SUC 40 MG/1 ML VIAL IV SCH ×4 (00:18→23:29)
[2017-06-19] MEDS: INSULIN REGULAR 100 UNIT/ML SUBCUT SCH ×5 (00:18→23:29)
[2017-06-19 03:57] LABS: ABG Base Excess 5.5 MMOL/L (-2.5-2.5); ABG HCO3 29.4 MMOL/L (20-26); ABG Oxygen Saturation 98.7 % (95-100); ABG PH 7.475 (7.35-7.45); ABG TCO2 25.9 MMOL/L (23-27); Allen Test Positive; Pt O2 Delivery Device Ventilator
[2017-06-19] MEDS: SODIUM CHLORIDE 0.9% 1,000 ML IV SCH (03:57)
[2017-06-19 06:11] LABS: Calcium 8.6 MG/DL (8.5-10.1); Osmolality,Calculated 332.1 MOS/KG (273-304); Potassium 4.1 MMOL/L (3.5-5.1)
[2017-06-19 06:13] LABS: Basophils % 0.1 % (0.0-0.8); Hematocrit 37.4 VOL% (35.7-47.0); Hemoglobin 12.1 GM/DL (12.0-16.0); Immature Granulocytes % 0.6 %; Immature Granulocytes Absolute 0.17 #; Lymphocytes # 17.1 10*3/uL (1.4-4.0); Lymphocytes % 57.1 % (21.3-54.2); Mean Corpuscular HGB Conc 32.4 GM/DL (32-36); Mean Corpuscular Hemoglobin 27 PG (27-34); Mean Corpuscular Volume 83.1 FL (87-102); Mean Platelet Volume 11.9 FL (9.6-12.0); Monocytes # 0.3 10*3/uL (0.11-0.8); Monocytes % 1.1 % (1.7-12.7); NRBC # 0.03 10*3/uL; Neutrophils # 12.3 10*3/uL (1.4-7.4); Neutrophils % 41.1 % (38.7-73.9); Platelet Count 172 T/CUMM (130-400); Red Cell Distribution Width 17.2 % (9.3-17.3)
[2017-06-19 06:34] LABS: Band Neutrophils 2 % (0-10); Lymphocytes 36 % (20-55); Platelet Estimate Normal; Segmented Neutrophils 62 % (50-85); Total Cells Counted 100
[2017-06-19] MEDS: APIXABAN 5 MG TABLET PO SCH ×2 (08:30→21:33)
[2017-06-19] MEDS: ESCITALOPRAM 10 MG TABLET PO SCH (08:30)
[2017-06-19] MEDS: MULTIVITAMIN (CENTRUM) TABLET PO SCH (08:30)
[2017-06-19] MEDS: METOPROLOL TARTRATE 25 MG TABLET PO SCH ×3 (08:30→21:33)
[2017-06-19] MEDS: POTASSIUM CHLORIDE 20 MEQ TABLET PO SCH (08:30)
[2017-06-19] MEDS: MONTELUKAST 10 MG TABLET PO SCH (08:30)
[2017-06-19] MEDS ORDERED: DEXTROSE 5% NACL 0.45% 1,000 ML IV SCH (09:00)
[2017-06-19] MEDS: DEXTROSE 5% NACL 0.22% 1,000 ML IV SCH ×2 (09:28→21:56)
[2017-06-19] MEDS: ISOSORBIDE DINITRATE 10 MG TABLET NG SCH ×2 (10:53→21:33)
[2017-06-19] MEDS: MIDAZOLAM 100 MG in SODIUM CHLORIDE 0.9% 80 ML IV SCH (12:24)
[2017-06-19] MEDS: INSULIN GLARGINE 100 UNIT/ML SUBCUT SCH (21:33)
[2017-06-20 04:15] LABS: ABG Base Excess 5.1 MMOL/L (-2.5-2.5); ABG PCO2 40.1 MM HG (35-48); ABG PH 7.469 (7.35-7.45); ABG TCO2 25.6 MMOL/L (23-27); Allen Test Positive; Pt O2 Delivery Device Ventilator
[2017-06-20] MEDS: INSULIN REGULAR 100 UNIT/ML SUBCUT SCH ×4 (06:09→23:39)
[2017-06-20] MEDS: methylPREDNISolone SOD SUC 40 MG/1 ML VIAL IV SCH ×3 (07:28→23:39)
[2017-06-20] MEDS: ESCITALOPRAM 10 MG TABLET PO SCH (08:08)
[2017-06-20] MEDS: MULTIVITAMIN (CENTRUM) TABLET PO SCH (08:08)
[2017-06-20] MEDS: METOPROLOL TARTRATE 25 MG TABLET PO SCH ×3 (08:08→20:01)
[2017-06-20] MEDS: ISOSORBIDE DINITRATE 10 MG TABLET NG SCH ×2 (08:09→20:01)
[2017-06-20] MEDS: APIXABAN 5 MG TABLET PO SCH ×2 (08:09→20:01)
[2017-06-20] MEDS: POTASSIUM CHLORIDE 20 MEQ TABLET PO SCH (08:09)
[2017-06-20] MEDS: MONTELUKAST 10 MG TABLET PO SCH (08:09)
[2017-06-20 08:31] LABS: ABG Base Excess 3.6 MMOL/L (-2.5-2.5); ABG HCO3 27.5 MMOL/L (20-26); ABG Oxygen Saturation 93.3 % (95-100); ABG PH 7.434 (7.35-7.45); ABG TCO2 24.8 MMOL/L (23-27); Allen Test Positive; Pt O2 Delivery Device Ventilator
[2017-06-20] MEDS: DEXTROSE 5% NACL 0.22% 1,000 ML IV SCH (11:24)
[2017-06-20] MEDS: MIDAZOLAM 100 MG in SODIUM CHLORIDE 0.9% 80 ML IV SCH (11:25)
[2017-06-20] MEDS ORDERED: METOCLOPRAMIDE 10 MG/2 ML VIAL IV SCH (15:14)
[2017-06-20] MEDS ORDERED: METOPROLOL TARTRATE 25 MG TABLET PO ONE (16:37)
[2017-06-20] MEDS: METOCLOPRAMIDE 10 MG/10 ML UDCUP PO SCH ×2 (17:45→23:39)
[2017-06-20] MEDS: ACETAMINOPHEN 325 MG TABLET PO PRN (20:01)
[2017-06-20] MEDS: INSULIN GLARGINE 100 UNIT/ML SUBCUT SCH (20:01)
[2017-06-21] MEDS: DEXTROSE 5% NACL 0.22% 1,000 ML IV SCH ×2 (00:06→14:16)
[2017-06-21 03:43] LABS: ABG Base Excess -0.2 MMOL/L (-2.5-2.5); ABG HCO3 24.3 MMOL/L (20-26); ABG Oxygen Saturation 96.2 % (95-100); ABG PCO2 44.1 MM HG (35-48); ABG PH 7.368 (7.35-7.45); ABG PO2 88.1 MM HG (80-95); ABG TCO2 22.5 MMOL/L (23-27); Allen Test Positive; Pt O2 Delivery Device Ventilator
[2017-06-21 06:05] LABS: Calcium 8.4 MG/DL (8.5-10.1); Osmolality,Calculated 329.3 MOS/KG (273-304); Potassium 4.3 MMOL/L (3.5-5.1)
[2017-06-21] MEDS: INSULIN REGULAR 100 UNIT/ML SUBCUT SCH ×3 (06:16→18:10)
[2017-06-21] MEDS: METOCLOPRAMIDE 10 MG/10 ML UDCUP PO SCH ×3 (06:16→18:11)
[2017-06-21] MEDS: ISOSORBIDE DINITRATE 10 MG TABLET NG SCH ×2 (08:17→22:12)
[2017-06-21] MEDS: methylPREDNISolone SOD SUC 40 MG/1 ML VIAL IV SCH ×3 (08:17→22:14)
[2017-06-21] MEDS: MULTIVITAMIN (CENTRUM) TABLET PO SCH (08:18)
[2017-06-21] MEDS: POTASSIUM CHLORIDE 20 MEQ/15 ML UDCUP PER TUBE PRN (08:18)
[2017-06-21] MEDS: ESCITALOPRAM 10 MG TABLET PO SCH (08:19)
[2017-06-21] MEDS: METOPROLOL TARTRATE 25 MG TABLET PO SCH ×3 (08:19→22:13)
[2017-06-21] MEDS: POTASSIUM CHLORIDE 20 MEQ TABLET PO SCH (08:19)
[2017-06-21] MEDS: MONTELUKAST 10 MG TABLET PO SCH (08:19)
[2017-06-21] MEDS: APIXABAN 5 MG TABLET PO SCH ×2 (08:19→22:13)
[2017-06-21] MEDS: PIPERACILLIN/TAZOBACTAM 3,375 MG in SODIUM CHLORIDE 0.9% 100 ML IV SCH ×2 (15:24→22:15)
[2017-06-21] MEDS ORDERED: FLUMAZENIL 0.5 MG/5 ML VIAL IV ONE (15:31)
[2017-06-21] MEDS: INSULIN GLARGINE 100 UNIT/ML SUBCUT SCH (22:13)
[2017-06-22] MEDS: METOCLOPRAMIDE 10 MG/10 ML UDCUP PO SCH ×5 (00:42→23:20)
[2017-06-22] MEDS: INSULIN REGULAR 100 UNIT/ML SUBCUT SCH ×5 (00:43→23:21)
[2017-06-22] MEDS: DEXTROSE 5% NACL 0.22% 1,000 ML IV SCH ×2 (00:49→20:09)
[2017-06-22 03:52] LABS: ABG Base Excess 3.1 MMOL/L (-2.5-2.5); ABG HCO3 27.1 MMOL/L (20-26); ABG Oxygen Saturation 96.7 % (95-100); ABG PCO2 42.2 MM HG (35-48); ABG PH 7.427 (7.35-7.45); ABG PO2 86.2 MM HG (80-95); ABG TCO2 24.5 MMOL/L (23-27); Pt O2 Delivery Device Ventilator
[2017-06-22 05:39] LABS: Basophils # 0.1 10*3/uL (0.0-0.2); Basophils % 0.2 % (0.0-0.8); Hemoglobin 11.9 GM/DL (12.0-16.0); Immature Granulocytes % 0.9 %; Immature Granulocytes Absolute 0.37 #; Lymphocytes # 20.8 10*3/uL (1.4-4.0); Lymphocytes % 52.4 % (21.3-54.2); Mean Corpuscular HGB Conc 31.3 GM/DL (32-36); Mean Corpuscular Hemoglobin 26 PG (27-34); Mean Corpuscular Volume 84.3 FL (87-102); Mean Platelet Volume 12.7 FL (9.6-12.0); Monocytes # 0.7 10*3/uL (0.11-0.8); Monocytes % 1.8 % (1.7-12.7); Neutrophils # 17.7 10*3/uL (1.4-7.4); Neutrophils % 44.7 % (38.7-73.9); Platelet Count 139 T/CUMM (130-400); Red Blood Count 4.51 MC/CUMM (3.8-5.5); Red Cell Distribution Width 16.9 % (9.3-17.3); White Blood Count 39.6 T/CUMM (4-12)
[2017-06-22 06:00] LABS: Lymphocytes 51 % (20-55); Platelet Estimate Normal; Segmented Neutrophils 48 % (50-85); Total Cells Counted 100
[2017-06-22] MEDS: PIPERACILLIN/TAZOBACTAM 3,375 MG in SODIUM CHLORIDE 0.9% 100 ML IV SCH ×3 (06:02→22:40)
[2017-06-22] MEDS ORDERED: SKIN HEALING OINT (AQUAPHOR) 50 GM TUBE TOP PRN (08:20)
[2017-06-22] MEDS ORDERED: PROPOFOL 1,000 MG/100 ML BOTTLE IV SCH (08:30)
[2017-06-22] MEDS: ISOSORBIDE DINITRATE 10 MG TABLET NG SCH ×2 (08:38→20:08)
[2017-06-22] MEDS: POTASSIUM CHLORIDE 20 MEQ TABLET PO SCH (08:38)
[2017-06-22] MEDS: ESCITALOPRAM 10 MG TABLET PO SCH (08:39)
[2017-06-22] MEDS: MONTELUKAST 10 MG TABLET PO SCH (08:39)
[2017-06-22] MEDS: APIXABAN 5 MG TABLET PO SCH ×2 (08:39→20:08)
[2017-06-22] MEDS: MULTIVITAMIN (CENTRUM) TABLET PO SCH (08:39)
[2017-06-22] MEDS: METOPROLOL TARTRATE 25 MG TABLET PO SCH ×3 (08:48→20:09)
[2017-06-22 08:50] LABS: Albumin 2.8 G/DL (3.4-5.0); Calcium 8.9 MG/DL (8.5-10.1); Osmolality,Calculated 310.4 MOS/KG (273-304); Osmolality,Calculated 313.3 MOS/KG (273-304); Potassium 4.3 MMOL/L (3.5-5.1)
[2017-06-22] MEDS: methylPREDNISolone SOD SUC 40 MG/1 ML VIAL IV SCH ×2 (10:32→22:39)
[2017-06-22] MEDS: ACETAMINOPHEN 325 MG TABLET PO PRN (14:14)
[2017-06-22] MEDS: INSULIN GLARGINE 100 UNIT/ML SUBCUT SCH (20:07)
[2017-06-23 03:43] LABS: ABG Base Excess 4.3 MMOL/L (-2.5-2.5); ABG HCO3 28.3 MMOL/L (20-26); ABG PCO2 39.4 MM HG (35-48); ABG PH 7.464 (7.35-7.45); ABG PO2 96.7 MM HG (80-95); ABG TCO2 24.9 MMOL/L (23-27)
[2017-06-23 05:12] LABS: Basophils # 0.1 10*3/uL (0.0-0.2); Basophils % 0.2 % (0.0-0.8); Hematocrit 37.2 VOL% (35.7-47.0); Hemoglobin 11.8 GM/DL (12.0-16.0); Immature Granulocytes % 1.3 %; Immature Granulocytes Absolute 0.51 #; Lymphocytes # 19.6 10*3/uL (1.4-4.0); Lymphocytes % 51.6 % (21.3-54.2); Mean Corpuscular HGB Conc 31.7 GM/DL (32-36); Mean Corpuscular Hemoglobin 26 PG (27-34); Mean Corpuscular Volume 82.9 FL (87-102); Mean Platelet Volume 13.4 FL (9.6-12.0); Monocytes # 0.4 10*3/uL (0.11-0.8); Monocytes % 1.1 % (1.7-12.7); Neutrophils # 17.4 10*3/uL (1.4-7.4); Neutrophils % 45.8 % (38.7-73.9); Platelet Count 137 T/CUMM (130-400); Red Blood Count 4.49 MC/CUMM (3.8-5.5); Red Cell Distribution Width 17.3 % (9.3-17.3)
[2017-06-23 05:20] LABS: INR 1.2; PT Patient Result 12.1 SECS; Partial Thromboplastin Time 28.9 SECS (0-40)
[2017-06-23 05:34] LABS: Albumin 2.5 G/DL (3.4-5.0); Calcium 8.7 MG/DL (8.5-10.1); Calcium 8.9 MG/DL (8.5-10.1); Osmolality,Calculated 301.8 MOS/KG (273-304); Osmolality,Calculated 302.8 MOS/KG (273-304); Potassium 5.1 MMOL/L (3.5-5.1)
[2017-06-23] MEDS: INSULIN REGULAR 100 UNIT/ML SUBCUT SCH ×3 (05:36→18:31)
[2017-06-23] MEDS: ACETAMINOPHEN 325 MG TABLET PO PRN (05:37)
[2017-06-23] MEDS: METOCLOPRAMIDE 10 MG/10 ML UDCUP PO SCH (05:37)
[2017-06-23] MEDS ORDERED: METOPROLOL TARTRATE 5 MG/5 ML VIAL IV PRN (05:52)
[2017-06-23 05:53] LABS: Lymphocytes 59 % (20-55); Segmented Neutrophils 40 % (50-85); Total Cells Counted 100
[2017-06-23 05:54] LABS: Platelet Estimate Adequate; Polychromasia Few
[2017-06-23 05:55] LABS: Target Cells Slight
[2017-06-23] MEDS: MORPHINE 2 MG/1 ML SYRINGE IV PRN (06:01)
[2017-06-23] MEDS: PIPERACILLIN/TAZOBACTAM 3,375 MG in SODIUM CHLORIDE 0.9% 100 ML IV SCH ×3 (07:00→23:22)
[2017-06-23] MEDS: DILTIAZEM 30 MG TABLET PO SCH ×3 (07:01→23:52)
[2017-06-23] MEDS ORDERED: FUROSEMIDE 40 MG/4 ML VIAL IV ONE (07:09)
[2017-06-23] MEDS: MULTIVITAMIN (CENTRUM) TABLET PO SCH (08:31)
[2017-06-23] MEDS: MONTELUKAST 10 MG TABLET PO SCH (08:31)
[2017-06-23] MEDS: ESCITALOPRAM 10 MG TABLET PO SCH (08:31)
[2017-06-23] MEDS: traMADol 50 MG TABLET PO PRN (08:31)
[2017-06-23] MEDS: ISOSORBIDE DINITRATE 10 MG TABLET NG SCH ×2 (08:31→21:58)
[2017-06-23] MEDS: POTASSIUM CHLORIDE 20 MEQ TABLET PO SCH (08:34)
[2017-06-23] MEDS: APIXABAN 5 MG TABLET PO SCH ×2 (08:34→21:58)
[2017-06-23] MEDS: methylPREDNISolone SOD SUC 40 MG/1 ML VIAL IV SCH ×2 (10:31→23:22)
[2017-06-23] MEDS: BUDESONIDE 0.5 MG/2 ML NEB RESP TX SCH ×2 (13:01→19:34)
[2017-06-23] MEDS: METOPROLOL TARTRATE 50 MG TABLET PO SCH ×3 (15:00→21:58)
[2017-06-23] MEDS: SODIUM CHLORIDE 0.9% IV SCH (16:45)
[2017-06-23] MEDS: VORICONAZOLE IV SCH (16:45)
[2017-06-23] MEDS: INSULIN GLARGINE 100 UNIT/ML SUBCUT SCH (21:57)
[2017-06-23] MEDS: ZINC OXIDE PASTE 113 GM TUBE TOP SCH (21:58)
[2017-06-24] MEDS: INSULIN REGULAR 100 UNIT/ML SUBCUT SCH ×4 (01:19→18:41)
[2017-06-24 04:10] LABS: ABG Base Excess 6.9 MMOL/L (-2.5-2.5); ABG HCO3 30.7 MMOL/L (20-26); ABG Oxygen Saturation 97.8 % (95-100); ABG PCO2 41.4 MM HG (35-48); ABG PH 7.483 (7.35-7.45); ABG PO2 91.9 MM HG (80-95); ABG TCO2 27.5 MMOL/L (23-27); Allen Test Positive; Pt O2 Delivery Device Ventilator
[2017-06-24] MEDS: SODIUM CHLORIDE 0.9% IV SCH ×2 (05:35→16:25)
[2017-06-24] MEDS: VORICONAZOLE IV SCH ×2 (05:35→16:25)
[2017-06-24 06:09] LABS: Basophils # 0.1 10*3/uL (0.0-0.2); Basophils % 0.2 % (0.0-0.8); Hematocrit 36.6 VOL% (35.7-47.0); Hemoglobin 11.6 GM/DL (12.0-16.0); Immature Granulocytes % 0.8 %; Immature Granulocytes Absolute 0.25 #; Lymphocytes # 18.3 10*3/uL (1.4-4.0); Lymphocytes % 55.4 % (21.3-54.2); Mean Corpuscular HGB Conc 31.7 GM/DL (32-36); Mean Corpuscular Hemoglobin 27 PG (27-34); Mean Corpuscular Volume 84.1 FL (87-102); Monocytes # 0.3 10*3/uL (0.11-0.8); Monocytes % 0.9 % (1.7-12.7); NRBC # 0.04 10*3/uL; Neutrophils # 14.1 10*3/uL (1.4-7.4); Neutrophils % 42.7 % (38.7-73.9); Platelet Count 128 T/CUMM (130-400); Red Blood Count 4.35 MC/CUMM (3.8-5.5); Red Cell Distribution Width 17.4 % (9.3-17.3)
[2017-06-24 06:40] LABS: Albumin 2.5 G/DL (3.4-5.0); Calcium 8.5 MG/DL (8.5-10.1); Potassium 5.1 MMOL/L (3.5-5.1)
[2017-06-24 06:43] LABS: Albumin 2.4 G/DL (3.4-5.0); Calcium 8.1 MG/DL (8.5-10.1); Potassium 5.1 MMOL/L (3.5-5.1); Total Protein 5.3 G/DL (6.4-8.3)
[2017-06-24] MEDS: DILTIAZEM 30 MG TABLET PO SCH ×3 (07:01→22:13)
[2017-06-24] MEDS: PIPERACILLIN/TAZOBACTAM 3,375 MG in SODIUM CHLORIDE 0.9% 100 ML IV SCH (07:01)
[2017-06-24 07:05] LABS: Atypical Lymphocytes Few; Giant Platelets Few; Hypochromasia 1+; Lymphocytes 59 % (20-55); Microcytosis Slight; Ovalocytes Slight; Platelet Estimate Normal; Segmented Neutrophils 41 % (50-85); Smudge Cells Few; Total Cells Counted 100
[2017-06-24] MEDS: BUDESONIDE 0.5 MG/2 ML NEB RESP TX SCH ×2 (07:20→19:41)
[2017-06-24] MEDS: ISOSORBIDE DINITRATE 10 MG TABLET NG SCH ×2 (08:52→22:13)
[2017-06-24] MEDS: MULTIVITAMIN (CENTRUM) TABLET PO SCH (08:52)
[2017-06-24] MEDS: ESCITALOPRAM 10 MG TABLET PO SCH (08:52)
[2017-06-24] MEDS: APIXABAN 5 MG TABLET PO SCH ×2 (08:52→22:14)
[2017-06-24] MEDS: MONTELUKAST 10 MG TABLET PO SCH (08:52)
[2017-06-24] MEDS: ZINC OXIDE PASTE 113 GM TUBE TOP SCH ×2 (09:01→22:14)
[2017-06-24] MEDS: METOPROLOL TARTRATE 50 MG TABLET PO SCH ×3 (09:04→22:13)
[2017-06-24] MEDS: traMADol 50 MG TABLET PO PRN (10:31)
[2017-06-24] MEDS: methylPREDNISolone SOD SUC 40 MG/1 ML VIAL IV SCH ×2 (10:31→22:12)
[2017-06-24] MEDS: POTASSIUM CHLORIDE 20 MEQ TABLET PO SCH (10:31)
[2017-06-24] MEDS: INSULIN GLARGINE 100 UNIT/ML SUBCUT SCH (22:14)
[2017-06-25] MEDS: INSULIN REGULAR 100 UNIT/ML SUBCUT SCH ×5 (01:18→23:48)
[2017-06-25] MEDS: SODIUM CHLORIDE 0.9% IV SCH ×2 (04:45→16:36)
[2017-06-25] MEDS: VORICONAZOLE IV SCH ×2 (04:45→16:36)
[2017-06-25] MEDS: MORPHINE 2 MG/1 ML SYRINGE IV PRN (05:02)
[2017-06-25 05:48] LABS: Basophils % 0.1 % (0.0-0.8); Hemoglobin 11.2 GM/DL (12.0-16.0); Immature Granulocytes % 0.7 %; Immature Granulocytes Absolute 0.19 #; Lymphocytes # 16.8 10*3/uL (1.4-4.0); Lymphocytes % 59.1 % (21.3-54.2); Mean Corpuscular Hemoglobin 27 PG (27-34); Mean Corpuscular Volume 82.9 FL (87-102); Monocytes # 0.2 10*3/uL (0.11-0.8); Monocytes % 0.6 % (1.7-12.7); NRBC # 0.02 10*3/uL; Neutrophils # 11.2 10*3/uL (1.4-7.4); Neutrophils % 39.5 % (38.7-73.9); Platelet Count 109 T/CUMM (130-400); Red Blood Count 4.22 MC/CUMM (3.8-5.5); Red Cell Distribution Width 17.5 % (9.3-17.3); White Blood Count 28.5 T/CUMM (4-12)
[2017-06-25 06:03] LABS: Calcium 8.3 MG/DL (8.5-10.1); Osmolality,Calculated 290.1 MOS/KG (273-304); Potassium 5.1 MMOL/L (3.5-5.1)
[2017-06-25 06:04] LABS: Albumin 2.2 G/DL (3.4-5.0); Calcium 8.5 MG/DL (8.5-10.1); Osmolality,Calculated 291.1 MOS/KG (273-304); Potassium 5.1 MMOL/L (3.5-5.1)
[2017-06-25 06:09] LABS: Atypical Lymphocytes Few; Giant Platelets Few; Hypochromasia 1+; Lymphocytes 41 % (20-55); Ovalocytes Slight; Platelet Estimate Decreased; Segmented Neutrophils 58 % (50-85); Smudge Cells Few; Total Cells Counted 100
[2017-06-25 06:10] LABS: Microcytosis Slight
[2017-06-25] MEDS: DILTIAZEM 30 MG TABLET PO SCH ×3 (06:54→23:48)
[2017-06-25 06:56] LABS: ABG Base Excess 5.7 MMOL/L (-2.5-2.5); ABG HCO3 29.5 MMOL/L (20-26); ABG Oxygen Saturation 94.9 % (95-100); ABG PCO2 47.1 MM HG (35-48); ABG PH 7.426 (7.35-7.45); ABG PO2 76.3 MM HG (80-95); ABG TCO2 27.8 MMOL/L (23-27)
[2017-06-25] MEDS: BUDESONIDE 0.5 MG/2 ML NEB RESP TX SCH ×2 (07:18→19:27)
[2017-06-25] MEDS ORDERED: ALBUTEROL/IPRATROPIUM 3 ML NEB RESP TX SCH (08:39)
[2017-06-25] MEDS: MULTIVITAMIN (CENTRUM) TABLET PO SCH (08:53)
[2017-06-25] MEDS: APIXABAN 5 MG TABLET PO SCH ×2 (08:53→20:08)
[2017-06-25] MEDS: ISOSORBIDE DINITRATE 10 MG TABLET NG SCH ×2 (08:53→20:08)
[2017-06-25] MEDS: ESCITALOPRAM 10 MG TABLET PO SCH (08:53)
[2017-06-25] MEDS: METOPROLOL TARTRATE 50 MG TABLET PO SCH ×3 (08:53→20:08)
[2017-06-25] MEDS: MONTELUKAST 10 MG TABLET PO SCH (08:53)
[2017-06-25] MEDS: ZINC OXIDE PASTE 113 GM TUBE TOP SCH ×2 (08:54→20:08)
[2017-06-25 09:41] LABS: ABG Base Excess 7.8 MMOL/L (-2.5-2.5); ABG HCO3 31.5 MMOL/L (20-26); ABG Oxygen Saturation 90.4 % (95-100); ABG PCO2 49.6 MM HG (35-48); ABG PH 7.436 (7.35-7.45); ABG PO2 60.1 MM HG (80-95)
[2017-06-25] MEDS: POTASSIUM CHLORIDE 20 MEQ TABLET PO SCH (10:45)
[2017-06-25] MEDS: methylPREDNISolone SOD SUC 40 MG/1 ML VIAL IV SCH ×2 (11:09→22:38)
[2017-06-25] MEDS: ALBUTEROL/IPRATROPIUM 3 ML NEB RESP TX SCH ×2 (11:56→19:27)
[2017-06-25] MEDS: FUROSEMIDE 40 MG/4 ML VIAL IV SCH (13:00)
[2017-06-25] MEDS: INSULIN GLARGINE 100 UNIT/ML SUBCUT SCH (20:07)
[2017-06-25] MEDS: traMADol 50 MG TABLET PO PRN (23:32)
[2017-06-26] MEDS: ALBUTEROL/IPRATROPIUM 3 ML NEB RESP TX SCH ×3 (00:54→13:14)
[2017-06-26] MEDS: SODIUM CHLORIDE 0.9% IV SCH (03:54)
[2017-06-26] MEDS: VORICONAZOLE IV SCH (03:54)
[2017-06-26 05:03] LABS: Allen Test Positive
[2017-06-26 05:05] LABS: ABG Base Excess 9.9 MMOL/L (-2.5-2.5); ABG HCO3 33.5 MMOL/L (20-26); ABG PCO2 45.5 MM HG (35-48); ABG PH 7.489 (7.35-7.45); ABG PO2 61.5 MM HG (80-95); ABG TCO2 30.8 MMOL/L (23-27)
[2017-06-26 05:13] LABS: Basophils % 0.1 % (0.0-0.8); Hematocrit 35.7 VOL% (35.7-47.0); Hemoglobin 11.4 GM/DL (12.0-16.0); Immature Granulocytes % 0.5 %; Immature Granulocytes Absolute 0.12 #; Lymphocytes # 14.8 10*3/uL (1.4-4.0); Lymphocytes % 62.8 % (21.3-54.2); Mean Corpuscular HGB Conc 31.9 GM/DL (32-36); Mean Corpuscular Hemoglobin 26 PG (27-34); Mean Corpuscular Volume 82.4 FL (87-102); Mean Platelet Volume 13.8 FL (9.6-12.0); Monocytes # 0.2 10*3/uL (0.11-0.8); Neutrophils # 8.4 10*3/uL (1.4-7.4); Neutrophils % 35.6 % (38.7-73.9); Platelet Count 110 T/CUMM (130-400); Red Blood Count 4.33 MC/CUMM (3.8-5.5); Red Cell Distribution Width 17.8 % (9.3-17.3); White Blood Count 23.6 T/CUMM (4-12)
[2017-06-26 05:48] LABS: Atypical Lymphocytes Few; Lymphocytes 51 % (20-55); Nucleated Red Blood Cells 1 (0-5); Segmented Neutrophils 48 % (50-85); Smudge Cells Few; Total Cells Counted 100
[2017-06-26 05:49] LABS: Hypochromasia 1+; Microcytosis 1+; Platelet Estimate Decreased
[2017-06-26 05:57] LABS: Calcium 8.5 MG/DL (8.5-10.1); Osmolality,Calculated 284.2 MOS/KG (273-304); Potassium 4.8 MMOL/L (3.5-5.1)
[2017-06-26] MEDS: INSULIN REGULAR 100 UNIT/ML SUBCUT SCH ×2 (06:12→12:01)
[2017-06-26] MEDS: DILTIAZEM 30 MG TABLET PO SCH (06:12)
[2017-06-26] MEDS: BUDESONIDE 0.5 MG/2 ML NEB RESP TX SCH (07:14)
[2017-06-26] MEDS: MONTELUKAST 10 MG TABLET PO SCH (09:03)
[2017-06-26] MEDS: POTASSIUM CHLORIDE 20 MEQ TABLET PO SCH (09:03)
[2017-06-26] MEDS: ISOSORBIDE DINITRATE 10 MG TABLET NG SCH (09:03)
[2017-06-26] MEDS: METOPROLOL TARTRATE 50 MG TABLET PO SCH (09:03)
[2017-06-26] MEDS: ZINC OXIDE PASTE 113 GM TUBE TOP SCH (09:03)
[2017-06-26] MEDS: APIXABAN 5 MG TABLET PO SCH (09:03)
[2017-06-26] MEDS: MULTIVITAMIN (CENTRUM) TABLET PO SCH (09:03)
[2017-06-26] MEDS: ESCITALOPRAM 10 MG TABLET PO SCH (09:03)
[2017-06-26] MEDS: FUROSEMIDE 40 MG/4 ML VIAL IV SCH (09:03)
[2017-06-26] MEDS: methylPREDNISolone SOD SUC 40 MG/1 ML VIAL IV SCH (10:12)
[2017-06-26 14:02] VITALS: BP 104/69
== END 2017-06-26 15:00 | DRG 166 ==
LOC: SUATTDRO 08:59 → N.ICU 10:16 → SUATTDRO 10:16
PROVIDERS: ADMIT Internal Medicine Infectious Disease; ATTEND Hospitalist